=== PATIENT | female | born 1970 | race Caucasian/White ===

== ENCOUNTER 2020-04-15 14:19 | Outpatient (CLI) | payer SELFPAY ==
--- NOTE | 2020-04-18 14:05 | ONC CON_ITS ---
Dr. Carson New Patient Note Patient: Ailyn Lobato Unit #: [id number]: 1970 Dicatated By: Lucian Carson M.D.Date of Visit: Apr 15, 2020 Onc MED New Patient/Consult Referring Physician: Dr. MICHAEL Ren M.D. History of Present Illness: Ms. Ailyn Lobato, is a 49-year-old female with who was diagnosed with colorectal cancer per colonoscopy done on March 08, 2020 at [facility] in [facility], as per patient she went to emergency room with 6-week history of progressive worsening of right upper quadrant pain and nausea along with history of off and on bleeding per rectum over 6-month duration and she thought her right upper quadrant pain was due to gallbladder so patient underwent CT scan of chest abdomen pelvis on March 06, 2020 which showed asymmetric thickening of the wall of rectosigmoid colon and low to intermediate density hepatic masses in the liver a mass within the right lobe measured 5.6 cm in transverse dimension. Pancreas normal, adrenal normal and increased density within the left common femoral vein and left superficial femoral vein, venous Doppler study done on March 06, 2020 confirmed left popliteal to common femoral DVT, patient was started on Eliquis and diagnosed with metastatic colorectal cancer with liver mets,, her final pathology report showed mutations not detected for both K-marly and NRAS but positive for BRAF V600E mutation. Patient was seen by Dr. Michael Ren, medical oncologist and he recommended systemic chemotherapy with FOLFOX every 2 weeks, as per patient on April 02, 2020, she went to back to [facility] ER with confusion and mental status changes of 1 week duration and MRI scan of the brain was done with a concern for metastatic disease but it did not show any evidence of brain mets but showed multiple areas of embolic and ischemic stroke particular to the right occipital region and bilateral cerebellar region as there was no neurology coverage, patient was transferred to [facility] in [facility], CTA head was done on April 02, 2020 which showed 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 Patient was seen by Dr. Evelio Ren, she was started on systemic chemotherapy with FOLFOX and second cycle of chemotherapy was completed on April 12, 2020. Due to her convenience [place], has decided to switch her care to [place]. He denies any specific complaints today, no fever chills, no nausea or vomiting, no diarrhea or constipation, no melena or hematochezia mild left leg swelling. But no hemoptysis or hematemesis, no headaches or blurred vision or double vision, no jaundice, right upper quadrant pain is under control. Past Medical History: Ms. Lobato's medical history consists of anxiety, depression, dvt, and stroke. Past Surgical History: Ms. Lobato's surgical/procedural history consists of portacath placement. Medications: busPIRone HCl 1 Tablet (of 10 mg) Oral daily, Cetirizine HCl 1 Tablet (of 10 mg) Oral daily, Citalopram Hydrobromide 1 Tablet (of 20 mg) Oral daily, Enoxaparin Sodium 60 Units (of 300 mg/3mL) Injection b.i.d., Famotidine 1 Tablet (of 20 mg) Oral daily, HYDROcodone-Acetaminophen 1 Tablet (of 5-325 mg) Oral PRN, Montelukast Sodium 1 Tablet (of 10 mg) Oral daily, Probiotic 1 Capsule Oral daily, Promethazine HCl 1 Tablet (of 25 mg) Oral daily, Zofran 1 Tablet (of 8 mg) Oral PRN Allergies: Bactrim, coffee, fish, garlic, milk , Penicillins, angel, and salmon. Social History: Ms. Lobato is . Ms. Lobato no longer smokes. Family History: There is no documented family history. Review Of Symptoms: Constitutional - Appetite is good and weight is stable. No fever, night sweats, or hot flashes. Energy level is poor, ENMT - No sinus congestion/drainage. No mouth sores. No sore throat or difficulty swallowing, Hematologic/Lymphatic - Positive for easy bruising, bleeding. Pt reports hx of blood clots, Respiratory - No shortness of breath. No cough. No pleuritic pain or hemoptysis, Cardiovascular - No angina pain. No palpitations, Gastrointestinal - No nausea or vomiting. No heartburn or acid reflux. No diarrhea or constipation. Pt reports abnormal, occasionally bloody stools, Genitourinary (F) - No dysuria or hematuria. No urinary frequency. No urgency or incontinence, Musculoskeletal - No joint or bone pain, Neurologic - No headache or dizziness. No numbness or tingling. No other focal neurologic symptoms, Psychiatric - No anxiety or depression. No insomnia. Vital Signs: Performed on Apr 15, 2020 14:54: 0, 21.08, 1.71 sq.m, 67.00 in, 99 %, 89 /min, 18 /min, 145/79 mm(hg) (HIGH), 98.4 F, and 134.6 lbs (HIGH). Performance Status: 1 - No physically strenuous activity, but ambulatory and able to carry out light or sedentary work (e.g. office work, light house work). (ECOG) Physical Examination: ENMT - No mouth sores, no thrush, no jaundice, Respiratory - Lungs are clear to auscultation, Cardiovascular - Regular rate and rhythm of heart, Abdomen - Soft, bowel sounds present, Extremities - Trace edema left leg. Lab/Imaging: Most recent lab results are not available for this patient. Impression: Metastatic colorectal cancer per colonoscopy done on March 08, 2020 confirmed adenocarcinoma and molecular profiling showed MMR proficient tumor, negative for KRAS and NRAS mutation but positive for BRAF V[address] scan of chest abdomen pelvis done on March 06, 2020 showed numerous low to intermediate density hepatic masses, mass within the right lobe measured 5.6 cm in transverse dimension. Nonspecific decreased attenuation noted in the periphery of spleen. And asymmetric thickening of the wall of the rectosigmoid colon. A lymph node near the segment of colon appears abnormally enlarged measuring 8.4 mm There is a fusion of T12 and L1 level. Left leg DVT confirmed by venous Doppler study done on March 06, 2020, initially treated with Eliquis, then patient was admitted [facility] on April 02, 2020, for which she was transferred to [facility] in [facility] with mental status confusion due to multiple area of embolic and ischemic stroke seen in the right occipital region and bilateral cerebellar region per MRI scan done and on April 02, 2020 she underwent embolectomy of basilar artery. And was started on Lovenox 60 mg subcu twice daily and concluded Eliquis failure. Anxiety/depression Started on systemic chemotherapy with FOLFOX by Dr. Evelio Ren in [place] and completed a second cycle on April 12, 2020 Plan: Discussed with patient regarding her disease status and treatment options, so far patient has tolerated 2 cycles of FOLFOX without significant problem, now she wants to resume her treatment here in [place],, her next cycle of FOLFOX is due on so we will postpone it till Tuesday after , she return to clinic with CBC CMP and if looks reasonable for the cycle #3 with FOLFOX and plan to give her 6 cycles of chemo and then follow-up CT PET scan to assess disease response and then plan accordingly. And to minimize toxicity we will omit 5-FU bolus dose with next cycle of chemotherapy As far as left leg DVT and recent history of basilar artery thrombosis and status post embolectomy is concerned, patient is on Lovenox and was told that Eliquis did not prevent thrombosis and was concluded Eliquis failure, in that case, will consider switching her to direct thrombin inhibitor dabigatran as earlier she was on direct factor Xa inhibitor apixaban (Eliquis) when she developed basilar artery thrombosis, patient has enough Lovenox to last till her return to clinic in 2 weeks, at that time will discuss with her regarding dabigatran. Signed By: Lucian Carson M.D. <<Signature on File>>
== END 2020-04-15 14:20 | disposition home or self-care (01) ==
LOC: ONCMED 14:25
PROVIDERS: PCP Nurse Practitioner Family; Visit Provider Internal Medicine Hematology & Oncology
DX: C19 Malignant neoplasm of rectosigmoid junction (principal); F41.8 Other specified anxiety disorders; Z79.01 Long term (current) use of anticoagulants; Z86.718 Personal history of other venous thrombosis and embolism; Z86.73 Personal history of transient ischemic attack (TIA), and cerebral infarction without residual deficits
CPT/HCPCS: 99203

== ENCOUNTER 2020-05-26 05:20 | Outpatient (RCR) | payer SELFPAY ==
[2020-04-29] MEDS: dextrose 5% 250 ML 75 ML IV (12:05)
[2020-04-29] MEDS: palonosetron 0.25 mg/5 mL SDV IV (12:05)
[2020-05-01] MEDS: LORazepam 2 mg/mL INJ 1 mL 0.5 MG IVP (15:17)
[2020-05-01] MEDS: sodium chloride 0.9% 500 ML IV (15:19)
--- NOTE | 2020-05-07 09:03 | ONC FU_ITS ---
[facility] Patient Note Patient: Ailyn Lobato Unit #: [id number]: 1970 Dictated By: Aman SargentDate of Visit: Apr 29, 2020 Onc MED Follow-Up/Prog Note Chief Complaint: Metastatic colon cancer History of Present Illness: Mrs. Lobato is a 49-year-old female with who was diagnosed with colorectal cancer per colonoscopy done on March 08, 2020 at [facility] in [facility]. She reports he went to emergency room with 6-week history of progressive worsening of right upper quadrant pain and nausea along with history of off and on bleeding per rectum over 6-month duration. She states she thought her right upper quadrant pain was due to gallbladder. She underwent CT scan of chest abdomen pelvis on March 06, 2020 which showed asymmetric thickening of the wall of rectosigmoid colon and low to intermediate density hepatic masses in the liver a mass within the right lobe measured 5.6 cm in transverse dimension. Pancreas normal, adrenal normal and increased density within the left common femoral vein and left superficial femoral vein. A venous doppler done on March 06, 2020 confirmed left popliteal to common femoral DVT. She was started on Lovenox and later transitioned to Eliquis. Mrs Lobato was diagnosed with metastatic colorectal cancer with liver mets at [facility] on . 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 Mrs Murcia was seen by Dr. Dae Ren, medical oncologist. He recommended systemic chemotherapy with FOLFOX every 2 weeks. However on April 02, 2020, she went to back to [facility] ER with confusion and mental status changes of 1 week duration and MRI scan of the brain was done with a concern for metastatic disease but it did not show any evidence of brain mets but showed multiple areas of embolic and ischemic stroke particular to the right occipital region and bilateral cerebellar region. As there was no neurology coverage, she was transferred to [facility] in [facility]. 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 On April 02, 2020, she underwent embolectomy of basilar artery and patient was discharged home on April 05, 2020 with Lovenox 60 mg twice a day and also concluded Eliquis failure. Mrs [place] was seen by Dr. Evelio Ren and she was started on systemic chemotherapy with FOLFOX and second cycle of chemotherapy was completed on April 12, 2020. Due to her convenience as patient lives in [place], [place], she has decided to switch her care to [place]. Ms. Lobato is here today for follow-up. She is due for her third cycle of FOLFOX. She has received 2 previous cycles at [facility] in [facility]. She has transitioned her care to [place] to be closer to home. She did see Dr. Carson for follow-up and establishment of care on April 15, 2020. She states overall she is doing good. Her appetite is fair. Energy is good. She states she is used up going all the time and has had to slow down a little bit. She is still self administering Lovenox and tolerating this well. She denies any fever or chills. She is had no known Covid symptoms or exposure. She denies any new shortness of breath orthopnea. She denies chest pain or palpitations. She denies any lower extremity swelling. She has had bruising on the abdomen from the Lovenox as would be expected. She states she did have some neuropathy with the last FOLFOX but feels like it is resolved at present. She did have some diarrhea but states that is resolved as well. She had some mild nausea but that resolved. She did not have any emesis. Her ECOG is 1. Past Medical History: Anxiety Depression Stroke Dvt in 2019 Past Surgical History: Ear surgery Portacath placement Embolectomy of basilar artery occulsion-[facility] [place] in 2019 Biopsy of rectosigmoid colon-Dr Catalan/[facility] in 2019 Colonoscopy in 2019 Allergies: Bactrim, bananas lemon/[place] Sea food-omega, coffee, fish, garlic, milk , Penicillins, angel, and salmon. Medications: busPIRone HCl 1 Tablet (of 10 mg) Oral daily Cetirizine HCl 1 Tablet (of 10 mg) Oral daily Citalopram Hydrobromide 1 Tablet (of 20 mg) Oral daily Enoxaparin Sodium 60 Units (of 300 mg/3mL) Injection b.i.d. Famotidine 1 Tablet (of 20 mg) Oral daily HYDROcodone-Acetaminophen 1 Tablet (of 5-325 mg) Oral PRN Montelukast Sodium 1 Tablet (of 10 mg) Oral daily Probiotic 1 Capsule Oral daily Promethazine HCl 1 Tablet (of 25 mg) Oral daily Zofran 1 Tablet (of 8 mg) Oral PRN Family History: Social History: Ms. Lobato is . Ms. Lobato no longer smokes. Review Of Symptoms: Constitutional Denies fevers, chills, night sweats, excessive fatigue or weight loss. Has fatigue but recovers with rest. Allergic/Immunologic No reactions. Eyes Denies significant visual changes. No diplopia. No amaurosis. ENMT Denies changes in hearing, sore throat, mouth sores, difficulty or changes in swallowing ability, and/or sinus drainage. Hematologic/Lymphatic Denies easy bruising or bleeding. The patient denies any tender or palpable lymph nodes. Respiratory Denies dyspnea on exertion, chest pain, cough or hemoptysis. Denies orthopnea. Cardiovascular Denies anginal chest pain, palpitations or orthopnea. Gastrointestinal Denies current nausea, vomiting, diarrhea, GI bleeding, or constipation. Denies change in bowel habits and/or stool color, no heartburn or early satiety. Some nausea and diarrhea after cycle 2 but resolved at present. Genitourinary (F) No hematuria, hesitancy, incontinence, vaginal bleeding, discharge or other problems with urination. Musculoskeletal Denies joint pain, swelling or redness. No decreased range of motion. Leg cramps at night off and on. Integumentary Denies chronic rashes, inflammation, ulcerations or skin changes. Neurologic Denies headache, blurred vision, and no areas of focal weakness or numbness. Normal gait. No sensory problems. Psychiatric Denies insomnia, depression, [place] or mood swings. Vital Signs: Performed on Apr 29, 2020 16:56 Height - 67.00 in Temperature - 97.9 F (LOW) Pulse - 97 /min Respiration - 18 /min BP - 127/79 mm(hg) O2 Sat - 97 % Pain - 0,1 - No physically strenuous activity, but ambulatory and able to carry out light or sedentary work (e.g. office work, light house work). (ECOG) Physical Examination: Constitutional Alert, oriented, no acute distress. Skin pink, warm and dry. Head Normocephalic; atraumatic. Eyes Conjunctivae and sclerae are clear and without icterus. Pupils are reactive and equal. Neck Supple without masses or thyromegaly. No jugular venous distension. Hematologic/Lymphatic No petechiae or purpura. Respiratory Lungs are clear to auscultation without rhonchi or wheezing. Cardiovascular Regular rate and rhythm of heart without murmurs,clicks, gallops or rubs. Chest Right subclavian venous access device insertion site is unremarkable. Abdomen Non-tender, non-distended, no masses or ascites. Good bowel sounds noted in all quads. No guarding or rebound tenderness. No pulsatile masses. Scattered mild bruising from Lovenox injections. Back/Spine Non-tender to palpation. Extremities No visible deformities, no cyanosis, clubbing or edema. Musculoskeletal No tenderness or swelling, normal range of motion without obvious weakness. Integumentary No rashes or lesions. Neurologic No sensory or motor deficits, normal cerebellar function, normal gait. Psychiatric Alert and oriented times three. Coherent speech. Verbalizes understanding of our discussions today. Laboratory:Test performed on Apr 28, 2020 14:56 CEA 187 ng/mL Test performed on Apr 28, 2020 11:29 Glucose 86 mg/dL BUN 9 mg/dL Creatinine 0.91 mg/dL Cr Clearance (Est) 71.29 mL/min Sodium 137 mmol/L Potassium 4.6 mmol/L Chloride 99 mmol/L CO2 28 mmol/L Calcium 9.4 mg/dL Protein, Total 6.7 g/dL Albumin 4.2 g/dL Globulin 2.5 g/dL Bilirubin, Total 0.3 mg/dL Alkaline Phosphatase 208 IU/L AST (SGOT) 36 IU/L ALT (SGPT) 28 IU/L WBC 4.3 10^9/L RBC 3.73 10^12/L HGB 11.3 g/dL HCT 35.5 % MCV 95 fl MCH 30.3 pg MCHC 31.8 g/dL RDW 16.2 % Platelet Count 364 10^9/L Neutrophils (Gran) 1.8 10^9/L Lymphocytes 1.6 10^9/L Monocytes 0.6 10^9/L Eosinophils 0.3 10^9/L Basophils 0.1 10^9/L Impression: Metastatic colorectal cancer per colonoscopy done on March 08, 2020 confirmed adenocarcinoma and molecular profiling showed MMR proficient tumor, negative for KRAS and NRAS mutation but positive for BRAF V[address] scan of chest abdomen pelvis done on March 06, 2020 showed numerous low to intermediate density hepatic masses, mass within the right lobe measured 5.6 cm in transverse dimension. Nonspecific decreased attenuation noted in the periphery of spleen. And asymmetric thickening of the wall of the rectosigmoid colon. A lymph node near the segment of colon appears abnormally enlarged measuring 8.4 mm There is a fusion of T12 and L1 level. Left leg DVT confirmed by venous Doppler study done on March 06, 2020, initially treated with Eliquis, then patient was admitted [facility] on April 02, 2020, for which she was transferred to [facility] in [facility] with mental status confusion due to multiple area of embolic and ischemic stroke seen in the right occipital region and bilateral cerebellar region per MRI scan done and on April 02, 2020 she underwent embolectomy of basilar artery. And was started on Lovenox 60 mg subcu twice daily and concluded Eliquis failure. Anxiety/depression Mrs Lobato is due for cycle 3 FOLFOX today. Started on systemic chemotherapy with FOLFOX by Dr. Evelio Ren in [place] and completed a second cycle on April 12, 2020 Plan: 1. Metastatic colon cancer: A. Proceed with cycle 3 FOLFOX at normal dosing with the exception of omitting the 5FU bolus. The current plan is to give her a total of 6 cycles and obtain followup PET/CT to assess disease response and plan accordingly B. Continue current antiemetics premeds as these seem to be working well at present. C. She will need growth factor support for chemotherapy-induced neutropenia as she has been receiving Fulphia 6 mg 24 hours post chemo per her [facility]/Dr Dae Ren records. D. She may have hydration/supportive care when she comes in to have her pump removed if she feels that she needs it. 2. Labs from April 28, 2020 were reviewed in detail and discussed with Ms. Lobato and a copy was given to her. WBC 4.3, hemoglobin 11.3, platelets 364,000, ANC is 1800. Potassium 4.6 creatinine 0.9 alk phos is 208 presumably due to growth factor support other LFTs are normal. CEA 187 improved from review of her records. It was 247 on 03/07/2020 per [facility] records. 3. Follow-up plan: A. We will plan for interim counts in 1 week at [facility] in [place]. B. We will plan to see her back here in the clinic in 2 weeks with CBC CMP for consideration of cycle 4 FOLFOX. 4. I have ask Mrs. Lobato to call me with the name of the antibiotic she can take as I would like for her to have one on hand as her ANC today is 1800. She will receive Neulasta On Pro. 5. Leg cramps: I have requested a magnesium be added to the blood in the lab. Oxaliplatin use can result in hypomagnesium. 6. Mrs. Lobato was instructed to contact us in the interim should questions or problems arise. 7. Left leg DVT: Per Dr Carson's last office note... As far as left leg DVT and recent history of basilar artery thrombosis and status post embolectomy is concerned, patient is on Lovenox and was told that Eliquis did not prevent thrombosis and was concluded Eliquis failure, in that case, will consider switching her to direct thrombin inhibitor dabigatran as earlier she was on direct factor Xa inhibitor apixaban (Eliquis) when she developed basilar artery thrombosis, patient has enough Lovenox to last till her return to clinic in 2 weeks, at that time will discuss with her regarding dabigatran. 8. Total face to face time spent with Mrs Lobato was > 60 minutes in review of plan of care, side effect identification and management and answering questions. Signed By: Aman Sargent-CRIS, AOPHIL Carson MD <<Signature on File>>
[2020-05-13] MEDS: dextrose 5% 250 ML 75 ML (10:48)
[2020-05-13] MEDS: famotidine 20 mg/2 mL INJ IVP (10:48)
[2020-05-13] MEDS: palonosetron 0.25 mg/5 mL SDV IVP (11:18)
--- NOTE | 2020-05-13 17:24 | ONC FU_ITS ---
Dr. Carson follow up note Patient: Ailyn Lobato Unit #: [id number]: 1970 Dicatated By: Lucian Carson M.D.Date of Visit:May 13, 2020 Onc Med Follow-up/Prog Note History of Present Illness: Mrs. Lobato is a 49-year-old female with who was diagnosed with colorectal cancer per colonoscopy done on March 08, 2020 at [facility] in [facility]. She reports he went to emergency room with 6-week history of progressive worsening of right upper quadrant pain and nausea along with history of off and on bleeding per rectum over 6-month duration. She states she thought her right upper quadrant pain was due to gallbladder. She underwent CT scan of chest abdomen pelvis on March 06, 2020 which showed asymmetric thickening of the wall of rectosigmoid colon and low to intermediate density hepatic masses in the liver a mass within the right lobe measured 5.6 cm in transverse dimension. Pancreas normal, adrenal normal and increased density within the left common femoral vein and left superficial femoral vein. A venous doppler done on March 06, 2020 confirmed left popliteal to common femoral DVT. She was started on Lovenox and later transitioned to Eliquis. Mrs Lobato was diagnosed with metastatic colorectal cancer with liver mets at [facility] on . 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 Mrs Murcia was seen by Dr. Dae Ren, medical oncologist. He recommended systemic chemotherapy with FOLFOX every 2 weeks. However on April 02, 2020, she went to back to [facility] ER with confusion and mental status changes of 1 week duration and MRI scan of the brain was done with a concern for metastatic disease but it did not show any evidence of brain mets but showed multiple areas of embolic and ischemic stroke particular to the right occipital region and bilateral cerebellar region. As there was no neurology coverage, she was transferred to [facility] in [facility]. 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 On April 02, 2020, she underwent embolectomy of basilar artery and patient was discharged home on April 05, 2020 with Lovenox 60 mg twice a day and also concluded Eliquis failure. Mrs Moreland was seen by Dr. Evelio Ren and she was started on systemic chemotherapy with FOLFOX and second cycle of chemotherapy was completed on April 12, 2020. Due to her convenience as patient lives in [place], [place], she has decided to switch her care to [place]. Came for follow-up, denies any specific complaints except generalized weakness and fatigue and itching involving both hands, as per patient she has history of eczema involving both hands and was seen by Dr. Trujillo crusher setter in [facility] about 4 years ago and since then she has been taking antihistaminic/antiallergic and also herbs. And also complaining of knots at Lovenox injection site. But no fever chills no nausea or vomiting no diarrhea constipation no mouth sores, no peripheral numbness, tolerating FOLFOX well otherwise Medications: busPIRone HCl 1 Tablet (of 10 mg) Oral daily, Cetirizine HCl 1 Tablet (of 10 mg) Oral daily, Citalopram Hydrobromide 1 Tablet (of 20 mg) Oral daily, Enoxaparin Sodium 60 Units (of 300 mg/3mL) Injection b.i.d., Famotidine 1 Tablet (of 20 mg) Oral daily, HYDROcodone-Acetaminophen 1 Tablet (of 5-325 mg) Oral PRN, Montelukast Sodium 1 Tablet (of 10 mg) Oral daily, Probiotic 1 Capsule Oral daily, Promethazine HCl 1 Tablet (of 25 mg) Oral daily, Zofran 1 Tablet (of 8 mg) Oral PRN Allergies: Bactrim, bananas lemon/[place] Sea food-omega, coffee, fish, garlic, milk , Penicillins, angel, and salmon. Review of Systems: Constitutional - Appetite is good and weight is stable. No fever, night sweats, or hot flashes. Energy level is fair, ENMT - No sinus congestion/drainage. No mouth sores. No sore throat or difficulty swallowing, Hematologic/Lymphatic - Positive for easy bruising, bleeding. Pt reports hx of blood clots, Respiratory - No shortness of breath. No cough. No pleuritic pain or hemoptysis, Cardiovascular - No angina pain. No palpitations, Gastrointestinal - No nausea or vomiting. No heartburn or acid reflux. No diarrhea or constipation. Pt reports abnormal, occasionally bloody stools, Genitourinary (F) - No dysuria or hematuria. No urinary frequency. No urgency or incontinence, Musculoskeletal - No joint or bone pain, Neurologic - No headache or dizziness. No numbness or tingling. No other focal neurologic symptoms, Psychiatric - No anxiety or depression. No insomnia. Vital Signs: Performed on May 13, 2020 09:12 Height - 67.00 in Weight - 138.8 lbs (HIGH) BSA - 1.73 sq.m BMI - 21.74 Temperature - 99.3 F (HIGH) Pulse - 96 /min Respiration - 18 /min BP - 138/68 mm(hg) O2 Sat - 97 % Pain - 2 Performance Status: 2 - Ambulatory/capable of all self-care, unable to perform any work activities. Up and about more than 50% of waking hours. (ECOG) Physical Examination: ENMT - No mouth sores, no thrush, no jaundice, Respiratory - Lungs are clear to auscultation, Cardiovascular - Regular rate and rhythm of heart, Abdomen - Soft, bowel sounds present and small knots at the Lovenox injection site no discharge no tenderness, Extremities - No visible edema or rash, dryness involving bilateral Hands. Lab/Imaging: Test performed on May 13, 2020 09:13 Glucose 93 mg/dL BUN 9 mg/dL Creatinine 0.93 mg/dL Cr Clearance (Est) 69.75 mL/min BUN/Creatinine Ratio 10 Absolute Value Sodium 142 mmol/L Potassium 5.1 mmol/L Chloride 103 mmol/L CO2 27 mmol/L Calcium 9.4 mg/dL Protein, Total 7.0 g/dL Albumin 4.6 g/dL Globulin 2.4 g/dL A/G Ratio 1.9 Absolute Value Bilirubin, Total 0.3 mg/dL Alkaline Phosphatase 227 IU/L AST (SGOT) 53 IU/L ALT (SGPT) 48 IU/L WBC 10.0 10^9/L RBC 4.13 10^12/L HGB 12.3 g/dL HCT 38.5 % MCV 93 fl MCH 29.8 pg MCHC 31.9 g/dL RDW 16.5 % Platelet Count 217 10^9/L Neutrophils (Gran) 6.9 10^9/L Lymphocytes 1.7 10^9/L Monocytes 0.8 10^9/L Eosinophils 0.4 10^9/L Basophils 0.1 10^9/L Test performed on Apr 28, 2020 14:56 CEA 187 ng/mL Impression: Metastatic colorectal cancer per colonoscopy done on March 08, 2020 confirmed adenocarcinoma and molecular profiling showed MMR proficient tumor, negative for KRAS and NRAS mutation but positive for BRAF V[address] scan of chest abdomen pelvis done on March 06, 2020 showed numerous low to intermediate density hepatic masses, mass within the right lobe measured 5.6 cm in transverse dimension. Nonspecific decreased attenuation noted in the periphery of spleen. And asymmetric thickening of the wall of the rectosigmoid colon. A lymph node near the segment of colon appears abnormally enlarged measuring 8.4 mm There is a fusion of T12 and L1 level. Left leg DVT confirmed by venous Doppler study done on March 06, 2020, initially treated with Eliquis, then patient was admitted [facility] on April 02, 2020, for which she was transferred to [facility] in [facility] with mental status confusion due to multiple area of embolic and ischemic stroke seen in the right occipital region and bilateral cerebellar region per MRI scan done and on April 02, 2020 she underwent embolectomy of basilar artery. And was started on Lovenox 60 mg subcu twice daily and concluded Eliquis failure. Anxiety/depression Mrs Lobato is due for cycle 3 FOLFOX today. Started on systemic chemotherapy with FOLFOX by Dr. Evelio Ren in [place] and completed a second cycle on April 12, 2020 Plan: Discussed with patient regarding her labs white blood count 10 hemoglobin 12.3 hematocrit 38.5 platelets 217,000 CMP within normal limit except ALT 48 compared to 28 on April 28, 2020 and AST 53 compared to 36 on April 28, 2020 Clinically, patient is doing well with no new signs symptoms, tolerating palliative chemotherapy with modified dose FOLFOX well, but with expected side effects, will proceed with cycle #4 today and then she will return to clinic in 2 weeks with CBC CMP As far as mildly elevated transaminases concern could be due to chemotherapy or other medication, patient was advised to stop taking antihistaminic/antiallergic's at least on the day and day after chemotherapy and also avoid any supplements. We will monitor her LFTs. As far as itching involving bilateral hand is concerned, patient was advised to maintain hygiene, use and moisture and also contact Dr. Trujillo or if you prefer local crusher setter as she has history of eczema involving bilateral hands. And History of DVT/pulmonary embolism/embolism involving right vertebral artery/basilar artery status post thrombectomy and now being treated with Lovenox, will consider continue with Lovenox for 6 months since embolectomy and then check her factor Xa level and then consider Xarelto or Pradaxa. We will consider follow-up CT PET scan after 6 cycles of FOLFOX. Signed By: Lucian Carson M.D. <<Signature on File>>
[2020-05-15] MEDS: promethazine 25 mg Tablet PO (15:20)
== END 2020-05-29 23:59 | disposition home or self-care (01) ==
LOC: ONCMED 05:20
PROVIDERS: PCP Nurse Practitioner Family; Visit Provider Internal Medicine Hematology & Oncology
DX: Z51.11 Encounter for antineoplastic chemotherapy (principal); C19 Malignant neoplasm of rectosigmoid junction; C78.7 Secondary malignant neoplasm of liver and intrahepatic bile duct; D70.1 Agranulocytosis secondary to cancer chemotherapy; T45.1X5A Adverse effect of antineoplastic and immunosuppressive drugs, initial encounter; R74.01 Elevation of levels of liver transaminase levels; R25.2 Cramp and spasm; L29.9 Pruritus, unspecified; F41.8 Other specified anxiety disorders; Z51.81 Encounter for therapeutic drug level monitoring; Z79.899 Other long term (current) drug therapy; Z86.718 Personal history of other venous thrombosis and embolism; Z79.01 Long term (current) use of anticoagulants
CPT/HCPCS: 96361; 96367; 96368; 96372; 96374; 96375; 96413; 96415; 96416; 96417; 96523; 99214; 99215; J0640; J1100; J1453; J2060; J2469; J2505; J3490; J7040; J9190; J9263; Q0169

== ENCOUNTER 2020-06-19 05:31 | Outpatient (RCR) | payer SELFPAY ==
[2020-06-02 09:29] LABS: Basophils # 0.1 10^3/uL (0.0-0.1); Basophils % 1.2 %; Eosinophils # 0.3 10^3/uL (0.0-0.8); Eosinophils % 3.5 %; Hematocrit 29.7 % (37.0-47.0); Hemoglobin 9.3 g/dL (11.5-15.3); Lymphocytes # 1.8 10^3/uL (0.8-4.8); Lymphocytes % 24.1 %; Mean Corpuscular HGB Conc 31.3 g/dL (30.0-36.0); Mean Platelet Volume 10.3 fL (7.4-10.4); Monocytes # 0.9 10^3/uL (0.2-0.9); Monocytes % 11.5 %; Neutrophils # 4.44 10^3/uL (1.8-7.7); Neutrophils % 59.2 %; Nucleated Red Blood Cells % 0 %; Platelet Count 305 10^3/cmm (130-400); Red Cell Distribution Width 17.2 % (12.1-15.1); White Blood Count 7.5 10^3/uL (4.0-10.0)
[2020-06-02 10:10] LABS: Alanine Aminotransferase 26 U/L (0-33); Albumin Level 3.9 g/dL (3.5-5.2); Alkaline Phosphatase 155 IU/L (35-105); Anion Gap 13.8 (5-19); Aspartate Amino Transferase 24 U/L (0-32); Blood Urea Nitrogen 9 mg/dL (6-20); Calcium 8.9 mg/dL (8.5-10.5); Carbon Dioxide 26 mmol/L (22-29); Chloride 102 mmol/L (98-107); Globulin 2.5 g/dL (1.3-4.6); Glomerular Filtration Rate 75.9 mL/min (90-130); Glucose 93 mg/dL (65-115); Osmolality Calculated 284 mOsm/kg (285-295); Potassium 3.8 mmol/L (3.5-5.1); Sodium 138 mmol/L (136-145); Total Bilirubin 0.2 mg/dL (0.15-1.2); Total Protein 6.4 g/dL (6.6-8.7)
[2020-06-02] MEDS: palonosetron 0.25 mg/5 mL SDV IV (12:07)
[2020-06-02] MEDS: dextrose 5% 250 ML 75 ML (12:07)
[2020-06-02] MEDS: famotidine 20 mg/2 mL INJ IVP (12:28)
[2020-06-02 13:05] LABS: Carcinoembryonic Antigen 65.5 ng/mL (0.0-4.7)
[2020-06-02 13:32] LABS: Ferritin 66 ng/mL (15-150); Iron 23 ug/dL (37-145); Percent Saturation 6.5 % (20-50); Total Iron Binding Capacity 352 mcg/dl; Unsaturated Iron Binding 329 ug/dL (112-347)
--- NOTE | 2020-06-03 10:26 | ONC FU_ITS ---
Dr. Carson follow up note Patient: Ailyn Lobato Unit #: [id number]: 1970 Dicatated By: Lucian Carson M.D.Date of Visit:Jun 02, 2020 Onc Med Follow-up/Prog Note History of Present Illness: Mrs. Lobato is a 49-year-old female with who was diagnosed with colorectal cancer per colonoscopy done on March 08, 2020 at [facility] in [facility]. She reports he went to emergency room with 6-week history of progressive worsening of right upper quadrant pain and nausea along with history of off and on bleeding per rectum over 6-month duration. She states she thought her right upper quadrant pain was due to gallbladder. She underwent CT scan of chest abdomen pelvis on March 06, 2020 which showed asymmetric thickening of the wall of rectosigmoid colon and low to intermediate density hepatic masses in the liver a mass within the right lobe measured 5.6 cm in transverse dimension. Pancreas normal, adrenal normal and increased density within the left common femoral vein and left superficial femoral vein. A venous doppler done on March 06, 2020 confirmed left popliteal to common femoral DVT. She was started on Lovenox and later transitioned to Eliquis. Mrs Lobato was diagnosed with metastatic colorectal cancer with liver mets at [facility] on . 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 Mrs Murcia was seen by Dr. Dae Ren, medical oncologist. He recommended systemic chemotherapy with FOLFOX every 2 weeks. However on April 02, 2020, she went to back to [facility] ER with confusion and mental status changes of 1 week duration and MRI scan of the brain was done with a concern for metastatic disease but it did not show any evidence of brain mets but showed multiple areas of embolic and ischemic stroke particular to the right occipital region and bilateral cerebellar region. As there was no neurology coverage, she was transferred to [facility] in [facility]. 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 On April 02, 2020, she underwent embolectomy of basilar artery and patient was discharged home on April 05, 2020 with Lovenox 60 mg twice a day and also concluded Eliquis failure. Mrs Moreland was seen by Dr. Evelio Ren and she was started on systemic chemotherapy with FOLFOX and second cycle of chemotherapy was completed on April 12, 2020. Due to her convenience as patient lives in [place], [place], she has decided to switch her care to [place]. Came for follow-up, complaining of bleeding per rectum off and on for the last 2 or 3 weeks, denies any abdominal pain, denies any nausea or vomiting but diarrhea which is under control with Imodium and also complaining of mouth sores but no ulcer.,Tolerating Lovenox well otherwise No fever or chillsAnd tolerating systemic therapy chemotherapy with modified dose FOLFOX well Medications: busPIRone HCl 1 Tablet (of 10 mg) Oral daily, Citalopram Hydrobromide 1 Tablet (of 20 mg) Oral daily, Enoxaparin Sodium 60 Units (of 300 mg/3mL) Injection b.i.d., Montelukast Sodium 1 Tablet (of 10 mg) Oral daily, Probiotic 1 Capsule Oral daily, Promethazine HCl 1 Tablet (of 25 mg) Oral daily, Zofran 1 Tablet (of 8 mg) Oral PRN Allergies: Bactrim, bananas lemon/[place] Sea food-omega, coffee, fish, garlic, milk , Penicillins, angel, and salmon. Review of Systems: Constitutional - Appetite is good and weight is stable. No fever, night sweats, or hot flashes. Energy level is fair, ENMT - No sinus congestion/drainage. No mouth sores. No sore throat or difficulty swallowing, Hematologic/Lymphatic - Positive for easy bruising, bleeding. Pt reports hx of blood clots, Respiratory - No shortness of breath. No cough. No pleuritic pain or hemoptysis, Cardiovascular - No angina pain. No palpitations, Gastrointestinal - No nausea or vomiting. No heartburn or acid reflux. No diarrhea or constipation. Pt continues to report bloody stools, Genitourinary (F) - No dysuria or hematuria. No urinary frequency. No urgency or incontinence, Musculoskeletal - No joint or bone pain, Neurologic - No headache or dizziness. No numbness or tingling. No other focal neurologic symptoms, Psychiatric - No anxiety or depression. No insomnia. Vital Signs: Performed on Jun 02, 2020 10:55 Height - 67.00 in Weight - 135.6 lbs (LOW) BSA - 1.71 sq.m BMI - 21.24 Temperature - 97.8 F (LOW) Pulse - 103 /min (HIGH) Respiration - 18 /min BP - 140/70 mm(hg) O2 Sat - 99 % Pain - 0 Performance Status: 1 - No physically strenuous activity, but ambulatory and able to carry out light or sedentary work (e.g. office work, light house work). (ECOG) Physical Examination: ENMT - No mouth sores, no thrush, no Jaundice, Respiratory - Lungs are clear to auscultation, Cardiovascular - Regular rate and rhythm of heart, Abdomen - Soft, bowel sounds present, Extremities - No visible edema. Lab/Imaging: Test performed on May 13, 2020 09:13 Glucose 93 mg/dL BUN 9 mg/dL Creatinine 0.93 mg/dL Cr Clearance (Est) 69.75 mL/min BUN/Creatinine Ratio 10 Absolute Value Sodium 142 mmol/L Potassium 5.1 mmol/L Chloride 103 mmol/L CO2 27 mmol/L Calcium 9.4 mg/dL Protein, Total 7.0 g/dL Albumin 4.6 g/dL Globulin 2.4 g/dL A/G Ratio 1.9 Absolute Value Bilirubin, Total 0.3 mg/dL Alkaline Phosphatase 227 IU/L AST (SGOT) 53 IU/L ALT (SGPT) 48 IU/L WBC 10.0 10^9/L RBC 4.13 10^12/L HGB 12.3 g/dL HCT 38.5 % MCV 93 fl MCH 29.8 pg MCHC 31.9 g/dL RDW 16.5 % Platelet Count 217 10^9/L Neutrophils (Gran) 6.9 10^9/L Lymphocytes 1.7 10^9/L Monocytes 0.8 10^9/L Eosinophils 0.4 10^9/L Basophils 0.1 10^9/L Test performed on Apr 28, 2020 14:56 CEA 187 ng/mL Impression: Metastatic colorectal cancer per colonoscopy done on March 08, 2020 confirmed adenocarcinoma and molecular profiling showed MMR proficient tumor, negative for KRAS and NRAS mutation but positive for BRAF V[address] scan of chest abdomen pelvis done on March 06, 2020 showed numerous low to intermediate density hepatic masses, mass within the right lobe measured 5.6 cm in transverse dimension. Nonspecific decreased attenuation noted in the periphery of spleen. And asymmetric thickening of the wall of the rectosigmoid colon. A lymph node near the segment of colon appears abnormally enlarged measuring 8.4 mm There is a fusion of T12 and L1 level. Left leg DVT confirmed by venous Doppler study done on March 06, 2020, initially treated with Eliquis, then patient was admitted [facility] on April 02, 2020, for which she was transferred to [facility] in [facility] with mental status confusion due to multiple area of embolic and ischemic stroke seen in the right occipital region and bilateral cerebellar region per MRI scan done and on April 02, 2020 she underwent embolectomy of basilar artery. And was started on Lovenox 60 mg subcu twice daily and concluded Eliquis failure. Anxiety/depression Started on systemic chemotherapy with FOLFOX by Dr. Evelio Ren in [place] and completed a second cycle on April 12, 2020 Plan: Discussed with patient regarding her labs white blood count 7.5 hemoglobin 9.3 hematocrit 29.7 platelets 307,000 MCV 99 CMP within normal limits Clinically, patient is doing reasonably well with no new signs symptom suggestive of disease progression tolerating systemic chemotherapy with modified dose FOLFOX but with expected side effects, now with persistent off and on diarrhea and occasionally mouth sores. Also developed off and on rectal bleeding which could be due to hemorrhoids or diverticular or GI pathology, further exacerbated by Lovenox We will refer her to GI for colonoscopy and in the meantime we will monitor her hemoglobin and consider blood transfusion if less than 8 g and also check iron studies if low, consider iron supplements. Patient was advised in case she started feeling dizzy lightheadedness or experience excessive bleeding she need to call us otherwise she will return to clinic in 2 weeks with CBC CMP Also discussed about holding Lovenox because of GI bleeding but patient is concerned about stroke and related complication as previously she developed clots in her basilar artery with occlusion of left superior cerebellar artery requiring embolectomy of basilar artery, on the other hand there is a risk of serious bleeding, patient did express understanding, so we will monitor her closely. If there is another episode of bleeding we may consider inpatient care. In the meantime we will proceed with her palliative chemotherapy with FOLFOX but reduce 5-FU dose by 10% to minimize side effect like diarrhea and mouth sores. She return to clinic in 2 weeks with CBC CMP unless there is a further episode of GI bleeding in that case we will consider inpatient care with urgent colonoscopy evaluation. Signed By: Lucian Carson M.D. <<Signature on File>>
[2020-06-17 08:46] LABS: Basophils # 0.1 10^3/uL (0.0-0.1); Basophils % 1.1 %; Eosinophils # 0.4 10^3/uL (0.0-0.8); Hematocrit 31.1 % (37.0-47.0); Hemoglobin 9.7 g/dL (11.5-15.3); Lymphocytes # 1.9 10^3/uL (0.8-4.8); Lymphocytes % 22.8 %; Mean Corpuscular HGB Conc 31.2 g/dL (30.0-36.0); Mean Corpuscular Hemoglobin 29.7 pg (28.0-34.0); Mean Corpuscular Volume 95.1 fL (81-99); Mean Platelet Volume 10.4 fL (7.4-10.4); Monocytes # 0.7 10^3/uL (0.2-0.9); Monocytes % 8.7 %; Neutrophils # 5.02 10^3/uL (1.8-7.7); Neutrophils % 60.7 %; Nucleated Red Blood Cells % 0 %; Platelet Count 262 10^3/cmm (130-400); Red Blood Count 3.27 10^6/uL (4.1-5.3); Red Cell Distribution Width 15.7 % (12.1-15.1); White Blood Count 8.3 10^3/uL (4.0-10.0)
[2020-06-17 09:24] LABS: Alanine Aminotransferase 33 U/L (0-33); Alkaline Phosphatase 199 IU/L (35-105); Anion Gap 14.5 (5-19); Aspartate Amino Transferase 28 U/L (0-32); Blood Urea Nitrogen 10 mg/dL (6-20); Calcium 8.9 mg/dL (8.5-10.5); Carbon Dioxide 24 mmol/L (22-29); Chloride 102 mmol/L (98-107); Globulin 2.6 g/dL (1.3-4.6); Glomerular Filtration Rate 75.9 mL/min (90-130); Glucose 210 mg/dL (65-115); Osmolality Calculated 289 mOsm/kg (285-295); Potassium 3.5 mmol/L (3.5-5.1); Sodium 137 mmol/L (136-145); Total Bilirubin 0.2 mg/dL (0.15-1.2); Total Protein 6.6 g/dL (6.6-8.7)
[2020-06-17] MEDS: palonosetron 0.25 mg/5 mL SDV IVP (11:05)
[2020-06-17] MEDS: dextrose 5% 250 ML 75 ML IV (11:05)
[2020-06-17] MEDS: famotidine 20 mg/2 mL INJ IVP (11:07)
--- NOTE | 2020-06-18 08:56 | ONC FU_ITS ---
[facility] Patient Note Patient: Ailyn Lobato Unit #: [id number]: 1970 Dictated By: Aman SargentDate of Visit: Jun 17, 2020 Onc MED Follow-Up/Prog Note Chief Complaint: Metastatic colon cancer History of Present Illness: Mrs. Lobato is a 49-year-old female with who was diagnosed with colorectal cancer per colonoscopy done on March 08, 2020 at [facility] in [facility]. She reports he went to emergency room with 6-week history of progressive worsening of right upper quadrant pain and nausea along with history of off and on bleeding per rectum over 6-month duration. She states she thought her right upper quadrant pain was due to gallbladder. She underwent CT scan of chest abdomen pelvis on March 06, 2020 which showed asymmetric thickening of the wall of rectosigmoid colon and low to intermediate density hepatic masses in the liver a mass within the right lobe measured 5.6 cm in transverse dimension. Pancreas normal, adrenal normal and increased density within the left common femoral vein and left superficial femoral vein. A venous doppler done on March 06, 2020 confirmed left popliteal to common femoral DVT. She was started on Lovenox and later transitioned to Eliquis. Mrs Lobato was diagnosed with metastatic colorectal cancer with liver mets at [facility] on . 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 Mrs Murcia was seen by Dr. Dae Ren, medical oncologist. He recommended systemic chemotherapy with FOLFOX every 2 weeks. However on April 02, 2020, she went to back to [facility] ER with confusion and mental status changes of 1 week duration and MRI scan of the brain was done with a concern for metastatic disease but it did not show any evidence of brain mets but showed multiple areas of embolic and ischemic stroke particular to the right occipital region and bilateral cerebellar region. As there was no neurology coverage, she was transferred to [facility] in [facility]. 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 On April 02, 2020, she underwent embolectomy of basilar artery and patient was discharged home on April 05, 2020 with Lovenox 60 mg twice a day and also concluded Eliquis failure. Mrs Moreland was seen by Dr. Evelio Ren and she was started on systemic chemotherapy with FOLFOX and second cycle of chemotherapy was completed on April 12, 2020. Due to her convenience as patient lives in [place], [place], she has decided to switch her care to [place]. She is completed 5 cycles of FOLFOX. She is required growth factor support for chemotherapy-induced neutropenia. She continues with Lovenox. Ms. Lobato is here today for follow-up. She is due for cycle 6 FOLFOX. She continues with Neulasta support as well. Overall she is tolerating it well. She had dose reduction last cycle due to mouth sores and worsening peripheral neuropathy. She states overall that worked well. She states the neuropathy is still there but nothing like it has been. She states she had no mouth sores. She states she is eating good. Her energy is fair she does tire easily but recovers well with rest. She denies any new shortness of breath orthopnea. She denies any chest pain or palpitations. She states she has some chronic leg pain in her left upper leg but is no worse than her normal. She states her bowels are the same. She said no urinary complaints. She has persistent nausea but states is related to what she eats. She tries to watch her diet a little carefully and that nausea is controlled. Is also controlled she takes her antiemetics at home. Her ECOG is 1. She is inquiring as to whether or not she could drive in relationship to the chemotherapy. I did quiz her to see if the chemotherapy makes her dizzy, lightheaded, nauseated, sleepy or other symptoms that would alter her mental status while she is driving. She denies any of these problems. I told her in regards to the chemotherapy there is really no contraindication to driving however with her history of the history of embolic and ischemic stroke, that would be my concern more so for her driving. She states she is currently not driving. Past Medical History: Anxiety Depression Stroke Dvt in 2019 Past Surgical History: Ear surgery Portacath [facility] of [facility]osigmoid colon-Dr Catalan/[facility] in 2019 Colonoscopy in 2019 Allergies: Bactrim, bananas lemon/[place] Sea food-omega, coffee, fish, garlic, milk , Penicillins, angel, and salmon. Medications: Benadryl Allergy 1 Tablet (of 25 mg) Oral daily PRN busPIRone HCl 1 Tablet (of 10 mg) Oral daily Citalopram Hydrobromide 1 Tablet (of 20 mg) Oral daily Enoxaparin Sodium 60 Units (of 300 mg/3mL) Injection b.i.d. Montelukast Sodium 1 Tablet (of 10 mg) Oral daily PRN Probiotic 1 Capsule Oral daily Promethazine HCl 1 Tablet (of 25 mg) Oral daily PRN Zofran 1 Tablet (of 8 mg) Oral PRN Family History: Social History: Ms. Lobato is . Ms. Lobato no longer smokes. She has no history of drinking. Review Of Symptoms: Constitutional Denies fevers, chills, night sweats, excessive fatigue or weight loss. Has fatigue but recovers with rest. Allergic/Immunologic No reactions. Eyes Denies significant visual changes. No diplopia. No amaurosis. ENMT Denies changes in hearing, sore throat, mouth sores, difficulty or changes in swallowing ability, and/or sinus drainage. She states her mouth is much better and she had no problems with the dose reduction last treatment. Hematologic/Lymphatic Denies easy bruising or bleeding. The patient denies any tender or palpable lymph nodes. Respiratory Denies dyspnea on exertion, chest pain, cough or hemoptysis. Denies orthopnea. Cardiovascular Denies anginal chest pain, palpitations or orthopnea. Gastrointestinal Denies current nausea, vomiting, diarrhea, GI bleeding, or constipation. Denies change in bowel habits and/or stool color, no heartburn or early satiety. Some nausea and diarrhea after treatment and after breakfast this am but no vomiting. Genitourinary (F) No hematuria, hesitancy, incontinence, vaginal bleeding, discharge or other problems with urination. Musculoskeletal Denies joint pain, swelling or redness. No decreased range of motion. Integumentary Denies chronic rashes, inflammation, ulcerations or skin changes. Neurologic Denies headache, blurred vision, and no areas of focal weakness or numbness. Normal gait. No sensory problems. Psychiatric Denies insomnia, depression, neville or mood swings. Vital Signs: Performed on Jun 17, 2020 10:10 Height - 67.00 in Weight - 138.2 lbs (HIGH) BSA - 1.73 sq.m BMI - 21.65 Temperature - 97.8 F (LOW) Pulse - 124 /min (HIGH) Respiration - 18 /min BP - 139/71 mm(hg) O2 Sat - 96 % Pain - 0,1 - No physically strenuous activity, but ambulatory and able to carry out light or sedentary work (e.g. office work, light house work). (ECOG) Physical Examination: Constitutional Alert, oriented, no acute distress. Skin pink, warm and dry. Head Normocephalic; atraumatic. Eyes Conjunctivae and sclerae are clear and without icterus. Pupils are reactive and equal. Neck Supple without masses or thyromegaly. No jugular venous distension. Hematologic/Lymphatic No petechiae or purpura. Respiratory Lungs are clear to auscultation without rhonchi or wheezing. Cardiovascular Regular rate and rhythm of heart without murmurs,clicks, gallops or rubs. Chest Right subclavian venous access device insertion site is unremarkable. Abdomen Non-tender, non-distended, no masses or ascites. Good bowel sounds noted in all quads. No guarding or rebound tenderness. No pulsatile masses. Scattered mild bruising from Lovenox injections. Back/Spine Non-tender to palpation. Extremities No visible deformities, no cyanosis, clubbing or edema. Musculoskeletal No tenderness or swelling, normal range of motion without obvious weakness. Integumentary No rashes or lesions. Neurologic No sensory or motor deficits, normal cerebellar function, normal gait. Psychiatric Alert and oriented times three. Coherent speech. Verbalizes understanding of our discussions today. Laboratory:Test performed on Jun 17, 2020 08:35 Sodium 137 mmol/L Potassium 3.5 mmol/L Chloride 102 mmol/L CO2 24 mmol/L Anion Gap 14.5 BUN 10 mg/dL Creatinine 0.8 mg/dL Cr Clearance (Est) 81.0900 mL/min eGFR 75.9 mL/min Glucose 210 mg/dL Osmolality - Calculated 289 mOsm/kg Calcium 8.9 mg/dL Protein, Total 6.6 g/dL Albumin 4.0 g/dL Globulin 2.6 g/dL Bilirubin, Total 0.2 mg/dL ALT (SGPT) 33 U/L AST (SGOT) 28 U/L Alkaline Phosphatase 199 IU/L WBC 8.3 10 3/uL RBC 3.27 10 6/uL HGB 9.7 g/dL HCT 31.1 % MCV 95.1 fL MCH 29.7 pg MCHC 31.2 g/dL RDW 15.7 % Platelet Count 262 10 3/cmm MPV 10.4 fL Neutrophils 5.02 10 3/uL Lymphocytes 1.9 10 3/uL Monocytes 0.7 10 3/uL Eosinophils 0.4 10 3/uL Basophils 0.1 10 3/uL Neutrophil % 60.7 % Lymphocyte % 22.8 % Monocyte % 8.7 % Eosinophil % 5.0 % Basophils % 1.1 % NRBC % 0 % Test performed on Jun 02, 2020 09:21 Ferritin 66 ng/mL Iron 23 mcg/dL Iron Binding Capacity (TIBC) 352 mcg/dl % Iron Saturation 6.5 % UIBC 329 mcg/dL CEA 65.5 ng/mL Test performed on May 13, 2020 09:13 BUN/Creatinine Ratio 10 Absolute Value A/G Ratio 1.9 Absolute Value Impression: Metastatic colorectal cancer per colonoscopy done on March 08, 2020 confirmed adenocarcinoma and molecular profiling showed MMR proficient tumor, negative for KRAS and NRAS mutation but positive for BRAF V[address] scan of chest abdomen pelvis done on March 06, 2020 showed numerous low to intermediate density hepatic masses, mass within the right lobe measured 5.6 cm in transverse dimension. Nonspecific decreased attenuation noted in the periphery of spleen. And asymmetric thickening of the wall of the rectosigmoid colon. A lymph node near the segment of colon appears abnormally enlarged measuring 8.4 mm There is a fusion of T12 and L1 level. Left leg DVT confirmed by venous Doppler study done on March 06, 2020, initially treated with Eliquis, then patient was admitted [facility] on April 02, 2020, for which she was transferred to [facility] in [facility] with mental status confusion due to multiple area of embolic and ischemic stroke seen in the right occipital region and bilateral cerebellar region per MRI scan done and on April 02, 2020 she underwent embolectomy of basilar artery. And was started on Lovenox 60 mg subcu twice daily and concluded Eliquis failure. Anxiety/depression Started on systemic chemotherapy with FOLFOX by Dr. Evelio Ren in [place] and completed a second cycle on April 12, 2020. She has now completed a total of 5 cycles of the FOLFOX and she is tolerating it well. She did require dose reduction with cycle 5 due to worsening peripheral neuropathy, increased diarrhea and mouth sores. Plan: PROBLEMS ADDRESSED TODAY 1. Metastatic colorectal cancer: A. Proceed with cycle 6 FOLFOX (at same dosing as cycle 5) and continue Neulasta support for chemotherapy-induced neutropenia. B. Supportive care as needed. C. Today's labs were reviewed in detail and discussed with Ms. Lobato and a copy was given to her. WBC 8.3, hemoglobin 9.7, platelets 262,000 ANC is 5000. Potassium 3.5 nonfasting glucose is 210 creatinine 0.8 LFTs are normal alk phos is 199 presumably due to Neulasta. Her last CEA on June 02, 2020 was 65.5 which is down from 187 on April 28, 2020. D. She is scheduled for colonoscopy next week. She is to have her Covid screening test done this with her pump removal. She states she still has some bleeding but it is definitely no worse than what it has been may be some better. 2. Anemia: A. She was found to be iron deficient with her labs on June 02, 2019 her iron sat was 6.5% her iron level was 23 and her ferritin was 66 TIBC was 352. I have asked her to start with oral iron 1 tablet daily and increase to a total of 3-day as tolerated. She has been advised to watch for GI upset and also constipation. B. If she is intolerant of the oral iron we can offer her parenteral iron replacement with Injectafer. 3. Thrombosis: A. DVT of the left popliteal to common femoral on March 06, 2020. She was started on Lovenox and transition to Eliquis B. 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 She resumed the Lovenox and was considered in Eliquis failure due to the recurrent clot. C. She continues with Lovenox 60 mg subcutaneous twice daily. 4. Follow-up plan: A. We will plan to see her back in 2 weeks with CBC, CMP and CEA. She will be due for cycle 7 FOLFOX at that time. B. Mrs. Lobato was instructed to contact us in interim should questions or problems arise. Signed By: Aman Sargent-, [facility] Lucian Carson MD <<Signature on File>>
--- NOTE | 2020-06-18 16:04 | ONC FU_ITS ---
[facility] Patient Note Patient: Ailyn Lobato Unit #: [id number]: [id number] Dictated By: Aman SargentDate of Visit: Jun 18, 2020 Onc MED Follow-Up/Prog Note ADDENDUM Mrs Lobato will be scheduled for followup PET/CT restaging prior to her followup in 2 weeks as she has now completed 6 cycles of FOLFOX. This followup imaging is necessary for planning of continuation of care. This PET/CT schedule will be pending insurance approval. Signed By: Aman Sargent-CRIS AOCNP <<Signature on File>>
== END 2020-06-29 23:59 | disposition home or self-care (01) ==
LOC: ONCMED 05:31
PROVIDERS: Nurse Practitioner; PCP Nurse Practitioner Family; Visit Provider Internal Medicine Hematology & Oncology
DX: Z51.11 Encounter for antineoplastic chemotherapy (principal); C19 Malignant neoplasm of rectosigmoid junction; C78.7 Secondary malignant neoplasm of liver and intrahepatic bile duct; I82.402 Acute embolism and thrombosis of unspecified deep veins of left lower extremity; F41.9 Anxiety disorder, unspecified; F32.9 Major depressive disorder, single episode, unspecified; Z79.01 Long term (current) use of anticoagulants; G62.0 Drug-induced polyneuropathy; T45.1X5A Adverse effect of antineoplastic and immunosuppressive drugs, initial encounter; R19.7 Diarrhea, unspecified; K13.79 Other lesions of oral mucosa; Z79.899 Other long term (current) drug therapy
CPT/HCPCS: 80053; 82378; 82728; 83540; 83550; 85025; 87635; 96367; 96368; 96372; 96375; 96413; 96415; 96416; 96523; 99205; 99215; J0640; J1100; J1453; J2469; J2505; J3490; J9190; J9263

== ENCOUNTER 2020-06-24 09:47 | Day surgery (SDC) | payer SELFPAY ==
[2020-06-20 13:56] VITALS: BMI 21.6
[2020-06-24 10:01] VITALS: BP 137/82; PULSE 109; RESP 18; TEMP 36.6; O2SAT 99
[2020-06-24 10:08] LABS: OR HCG Qualitative Urine Negative (Negative)
[2020-06-24] MEDS: sodium chloride 0.9% 1,000 ML 30 ML IV (10:12)
--- NOTE | 2020-06-24 10:36 | ANES.PREANE2 ---
Pre-Anesthetic Assessment Pre-Anesthetic Assessment: Height/Weight: Height 1.7 m Weight 62.596 kg Temp Pulse Resp BP Pulse Ox 97.8 F 109 H 18 137/82 99 06/24/20 10:01 06/24/20 10:01 06/24/20 10:01 06/24/20 10:01 06/24/20 10:01 Preop Diagnosis: diagnostic Proposed Procedure: Operation Date: 06/24/20 11:00 Proposed Procedures p Colonoscopy 65064 Z85.038(Not Applicable) - Prasad Andre MD Was Beta Larry taken within 24 hours: N/A Last intake: Intake Last Liquid Date 06/23/20 Last Liquid Time 23:59 Last Solid Date 06/22/20 Last Solid Time 18:00 Social: Social History: No alcohol and No tobacco Comment: H/o smoking quit in March Exam: Pre-Anes Outpt Exam: alert, oriented x 3, clear to auscultation bilaterally and regular rate & rhythm Airway: Submandibular: WNL Cervical ROM: WNL MP: 2 Dentition: Full CV/HEM: Comments: h/o DVT/PE GI: GI: GERD Neuropsych: Neuropsych: Anxiety 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 Anesthetic Plan: ASA status: 3 Anesthesia: MAC Risk of > 500 ml blood loss (7ml/kg in children): No Meds/Allergies Current Medications: Current Medications Generic Name Dose Route Start Last Admin Trade Name Freq PRN Reason Stop Dose Admin Sodium Chloride 1,000 mls @ 30 ml s/hr 06/24/20 10:00 06/24/20 10:12 Sodium Chloride 0.9% IV 06/25/20 09:59 30 mls/hr .Q24H CONCEPCION Administration PFSH Anesthesia PFSH: Medical History (Updated 06/11/20 @ 08:19 by Prasad Andre MD) Basilar artery thrombosis Chronic anticoagulation Colon cancer metastasized to liver DVT (deep venous thrombosis) Surgical History (Updated 06/10/20 @ 14:56 by Prasad Andre MD) History of ear surgery Status post colonoscopy Family History (Updated 06/10/20 @ 14:28 by Mena Conway) Mother Cancer breast and lung Social History (Updated 06/10/20 @ 14:28 by Mena Conway) Smoking and tobacco status: former smoker Second hand smoke exposure: No Smoking risk assessment/counseling performed?: No Alcohol intake: never Desire information about alcohol rehabilitation?: No Counseling given: No Desire information about substance/drug rehabilitation?: No Counseling given: No Adopted: No Caregiver/support person: No Lives independently: Yes Household members: spouse and children Marital status: Number of children: 1 Data Anesthesia Other Labs: Laboratory Results - last 48 hr 06/24/20 09:58 Urine HCG, Qual Negative Cardiac Studies: No Data to Display
--- NOTE | 2020-06-24 11:58 | W.PM.OPSUD ---
Surgery/Procedure H&P Update DATE OF PROCEDURE: June 24, 2020 DATE H&P PERFORMED: 06/10/20 H&P UPDATE INFORMATION: I have reviewed H&P completed within last 30 days, I have examined patient prior to procedure and No changes to prior documentation PREOP DIAGNOSIS: diagnostic PLANNED PROCEDURE: Operation Date: 06/24/20 11:00 Proposed Procedures p Colonoscopy [id number] Z85.038(Not Applicable) - Prasad Andre MD
[2020-06-24 12:21] VITALS: BP 93/48; PULSE 78; RESP 18; TEMP 36.4; O2SAT 99
[2020-06-24 12:36] VITALS: BP 126/80; PULSE 75; RESP 18; TEMP 36.4; O2SAT 100
--- NOTE | 2020-06-24 13:32 | ANE.PACU2 ---
Inpatient post-anesthesia follow up: Airway intact: Yes Vital signs: Temperature 97.5 F Pulse Rate 75 Respiratory Rate 18 Blood Pressure 126/80 Pulse Oximetry 100 Oxygen Delivery Me thod Room Air Oxygen Flow Rate Fraction of Inspir ed Oxygen Hydration adequate: Yes Nausea and vomiting: No Pain level: 1 Mental status: Baseline
== END 2020-06-24 13:10 | disposition home or self-care (01) ==
PROVIDERS: Anesthesiology; PCP Nurse Practitioner Family; Visit Provider Surgery
PROC: 0DJD8ZZ Inspection of Lower Intestinal Tract, Via Natural or Artificial Opening Endoscopic (ICD-10-PCS; CPT 45378; principal; 2020-06-24 11:00)
DX: K92.1 Melena (principal); C18.9 Malignant neoplasm of colon, unspecified; C78.7 Secondary malignant neoplasm of liver and intrahepatic bile duct; Z86.718 Personal history of other venous thrombosis and embolism; Z87.891 Personal history of nicotine dependence; Z79.01 Long term (current) use of anticoagulants; K21.9 Gastro-esophageal reflux disease without esophagitis
CPT/HCPCS: 12345; 45378; 84703; J2704; J7030; T1015-U1

== ENCOUNTER 2020-07-25 05:46 | Outpatient (RCR) | payer SELFPAY ==
[2020-07-01 08:37] LABS: Basophils % 0.5 %; Eosinophils # 0.5 10^3/uL (0.0-0.8); Eosinophils % 6.1 %; Hematocrit 29.8 % (37.0-47.0); Hemoglobin 9.2 g/dL (11.5-15.3); Lymphocytes # 1.9 10^3/uL (0.8-4.8); Lymphocytes % 23.1 %; Mean Corpuscular HGB Conc 30.9 g/dL (30.0-36.0); Mean Corpuscular Hemoglobin 29.1 pg (28.0-34.0); Mean Corpuscular Volume 94.3 fL (81-99); Mean Platelet Volume 10.8 fL (7.4-10.4); Monocytes # 0.8 10^3/uL (0.2-0.9); Monocytes % 8.9 %; Neutrophils # 5.03 10^3/uL (1.8-7.7); Neutrophils % 59.9 %; Nucleated Red Blood Cells % 0 %; Platelet Count 237 10^3/cmm (130-400); Red Blood Count 3.16 10^6/uL (4.1-5.3); Red Cell Distribution Width 15.5 % (12.1-15.1); White Blood Count 8.4 10^3/uL (4.0-10.0)
[2020-07-01 08:56] LABS: Alanine Aminotransferase 63 U/L (0-33); Albumin Level 3.7 g/dL (3.5-5.2); Alkaline Phosphatase 229 IU/L (35-105); Aspartate Amino Transferase 40 U/L (0-32); Blood Urea Nitrogen 8 mg/dL (6-20); Carbon Dioxide 25 mmol/L (22-29); Chloride 105 mmol/L (98-107); Globulin 2.5 g/dL (1.3-4.6); Glomerular Filtration Rate 88.6 mL/min (90-130); Glucose 129 mg/dL (65-115); Osmolality Calculated 286 mOsm/kg (285-295); Sodium 138 mmol/L (136-145); Total Bilirubin 0.2 mg/dL (0.15-1.2); Total Protein 6.2 g/dL (6.6-8.7)
--- NOTE | 2020-07-01 10:30 | ONC FU_ITS ---
Dr. Carson follow up note Patient: Ailyn Lobato Unit #: [id number]: 1970 Dicatated By: Lucian Carson M.D.Date of Visit:Jul 01, 2020 Onc Med Follow-up/Prog Note History of Present Illness: Mrs. Lobato is a 49-year-old female with who was diagnosed with colorectal cancer per colonoscopy done on March 08, 2020 at [facility] in [facility]. She reports he went to emergency room with 6-week history of progressive worsening of right upper quadrant pain and nausea along with history of off and on bleeding per rectum over 6-month duration. She states she thought her right upper quadrant pain was due to gallbladder. She underwent CT scan of chest abdomen pelvis on March 06, 2020 which showed asymmetric thickening of the wall of rectosigmoid colon and low to intermediate density hepatic masses in the liver a mass within the right lobe measured 5.6 cm in transverse dimension. Pancreas normal, adrenal normal and increased density within the left common femoral vein and left superficial femoral vein. A venous doppler done on March 06, 2020 confirmed left popliteal to common femoral DVT. She was started on Lovenox and later transitioned to Eliquis. Mrs Lobato was diagnosed with metastatic colorectal cancer with liver mets at [facility] on . 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 Mrs Murcia was seen by Dr. Dae Ren, medical oncologist. He recommended systemic chemotherapy with FOLFOX every 2 weeks. However on April 02, 2020, she went to back to [facility] ER with confusion and mental status changes of 1 week duration and MRI scan of the brain was done with a concern for metastatic disease but it did not show any evidence of brain mets but showed multiple areas of embolic and ischemic stroke particular to the right occipital region and bilateral cerebellar region. As there was no neurology coverage, she was transferred to [facility] in [facility]. 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 On April 02, 2020, she underwent embolectomy of basilar artery and patient was discharged home on April 05, 2020 with Lovenox 60 mg twice a day and also concluded Eliquis failure. Mrs Moreland was seen by Dr. Evelio Ren and she was started on systemic chemotherapy with FOLFOX and second cycle of chemotherapy was completed on April 12, 2020. Due to her convenience as patient lives in [place], [place], she has decided to switch her care to [place]. She is completed 5 cycles of FOLFOX. She is required growth factor support for chemotherapy-induced neutropenia. She continues with Lovenox. Follow-up CT PET scan done after six cycles of modified FOLFOX, on June 28, 2020 showed there is a 4.4 x 2.8 cm rectal mass with SUV of 13.6 with presacral perirectal nodes are subcentimeter in size and too small to characterize. Multifocal hepatic metastatic disease is present most lesions do not demonstrate activity greater than that of hepatic background but several lesions are FDG positive the index lesion in the posterior segment four measuring 3.7 x 4.0 cm with SUV of 4.7 compared to 5.[address] scan done in February 2020, with significant central necrosis Came for follow-up, denies any specific complaints, but generalized weakness and fatigue, no fever chills, no nausea or vomiting, no diarrhea or constipation, no hemoptysis or hematemesis, no melena or hematochezia tolerating systemic therapy well otherwise Medications: Benadryl Allergy 1 Tablet (of 25 mg) Oral daily PRN, busPIRone HCl 1 Tablet (of 10 mg) Oral daily, Citalopram Hydrobromide 1 Tablet (of 20 mg) Oral daily, Enoxaparin Sodium 60 Units (of 300 mg/3mL) Injection b.i.d., Montelukast Sodium 1 Tablet (of 10 mg) Oral daily PRN, Probiotic 1 Capsule Oral daily, Promethazine HCl 1 Tablet (of 25 mg) Oral daily PRN, Zofran 1 Tablet (of 8 mg) Oral PRN Allergies: Bactrim, bananas lemon/[place] Sea food-omega, coffee, fish, garlic, milk , Penicillins, angel, and salmon. Review of Systems: Constitutional - Appetite is good and weight is stable. No fever, night sweats, or hot flashes. Energy level is fair, ENMT - No sinus congestion/drainage. No mouth sores. No sore throat or difficulty swallowing, Hematologic/Lymphatic - Positive for easy bruising, bleeding. Pt reports hx of blood clots, Respiratory - No shortness of breath. No cough. No pleuritic pain or hemoptysis, Cardiovascular - No angina pain. No palpitations, Gastrointestinal - No nausea or vomiting. No heartburn or acid reflux. No diarrhea or constipation. Pt continues to report bloody stools, Genitourinary (F) - No dysuria or hematuria. No urinary frequency. No urgency or incontinence, Musculoskeletal - No joint or bone pain, Neurologic - No headache or dizziness. No numbness or tingling. No other focal neurologic symptoms, Psychiatric - No anxiety or depression. No insomnia. Vital Signs: Performed on Jul 01, 2020 09:07 Height - 67.00 in Weight - 136.2 lbs (LOW) BSA - 1.72 sq.m BMI - 21.33 Temperature - 96.0 F (LOW) Pulse - 97 /min Respiration - 16 /min BP - 141/64 mm(hg) (HIGH) O2 Sat - 98 % Pain - 0 Performance Status: 1 - No physically strenuous activity, but ambulatory and able to carry out light or sedentary work (e.g. office work, light house work). (ECOG) Physical Examination: ENMT - No mouth sores, no thrush, no jaundice, Respiratory - Lungs are clear to auscultation, Cardiovascular - Regular rate and rhythm of heart, Abdomen - Soft, bowel sounds present, Extremities - No visible edema. Lab/Imaging: Test performed on Jun 17, 2020 08:35 Sodium 137 mmol/L Potassium 3.5 mmol/L Chloride 102 mmol/L CO2 24 mmol/L Anion Gap 14.5 BUN 10 mg/dL Creatinine 0.8 mg/dL Cr Clearance (Est) 81.0900 mL/min eGFR 75.9 mL/min Glucose 210 mg/dL Osmolality - Calculated 289 mOsm/kg Calcium 8.9 mg/dL Protein, Total 6.6 g/dL Albumin 4.0 g/dL Globulin 2.6 g/dL Bilirubin, Total 0.2 mg/dL ALT (SGPT) 33 U/L AST (SGOT) 28 U/L Alkaline Phosphatase 199 IU/L WBC 8.3 10 3/uL RBC 3.27 10 6/uL HGB 9.7 g/dL HCT 31.1 % MCV 95.1 fL MCH 29.7 pg MCHC 31.2 g/dL RDW 15.7 % Platelet Count 262 10 3/cmm MPV 10.4 fL Neutrophils 5.02 10 3/uL Lymphocytes 1.9 10 3/uL Monocytes 0.7 10 3/uL Eosinophils 0.4 10 3/uL Basophils 0.1 10 3/uL Neutrophil % 60.7 % Lymphocyte % 22.8 % Monocyte % 8.7 % Eosinophil % 5.0 % Basophils % 1.1 % NRBC % 0 % Test performed on Jun 02, 2020 09:21 Ferritin 66 ng/mL Iron 23 mcg/dL Iron Binding Capacity (TIBC) 352 mcg/dl % Iron Saturation 6.5 % UIBC 329 mcg/dL CEA 65.5 ng/mL Test performed on May 13, 2020 09:13 BUN/Creatinine Ratio 10 Absolute Value A/G Ratio 1.9 Absolute Value Impression: Metastatic colorectal cancer per colonoscopy done on March 08, 2020 confirmed adenocarcinoma and molecular profiling showed MMR proficient tumor, negative for KRAS and NRAS mutation but positive for BRAF V[address] scan of chest abdomen pelvis done on March 06, 2020 showed numerous low to intermediate density hepatic masses, mass within the right lobe measured 5.6 cm in transverse dimension. Nonspecific decreased attenuation noted in the periphery of spleen. And asymmetric thickening of the wall of the rectosigmoid colon. A lymph node near the segment of colon appears abnormally enlarged measuring 8.4 mm There is a fusion of T12 and L1 level. Left leg DVT confirmed by venous Doppler study done on March 06, 2020, initially treated with Eliquis, then patient was admitted [facility] on April 02, 2020, for which she was transferred to [facility] in [facility] with mental status confusion due to multiple area of embolic and ischemic stroke seen in the right occipital region and bilateral cerebellar region per MRI scan done and on April 02, 2020 she underwent embolectomy of basilar artery. And was started on Lovenox 60 mg subcu twice daily and concluded Eliquis failure. Anxiety/depression Started on systemic chemotherapy with FOLFOX by Dr. Evelio Ren in [place] and completed a second cycle on April 12, 2020. She has now completed a total of 5 cycles of the FOLFOX and she is tolerating it well. She did require dose reduction with cycle 5 due to worsening peripheral neuropathy, increased diarrhea and mouth sores. CT PET scan done after six cycles of systemic therapy with modified dose FOLFOX showed good response, FDG positive rectal mass and extensive hepatic metastatic disease, most lesions do not demonstrate significant uptake. Suggesting a possible positive response to therapy. Index lesion is 3.7 x 4 cm compared to 5.6 cm in February 2020 Plan: Discussed with patient regarding her labs white blood count of 8.4 hemoglobin 9.2 hematocrit 29.8 platelets 237,000 CMP within normal limits and follow-up CT PET scan which showed excellent response to the treatment Clinically, patient is doing well with no new signs symptom except generalized weakness and fatigue which could be multifactorial including iron deficiency anemia and chemotherapy. We will proceed with next dose of modified FOLFOX and then she will return weekly 2 weeks with CBC CMP and As far as her iron deficiency anemia is concerned as her anemia work-up done on June 02, 2020 shows iron saturation was 6.5% and iron was 23 ferritin 66, as patient has intolerance to oral iron, we will consider Injectafer 750 mg IV weekly x2 and then follow hemoglobin and iron studies. Her follow-up CT PET scan showed excellent response to the chemotherapy now only active sites the liver and rectum and in liver most of the lesions are FDG negative and index lesion is smaller in size and centrally necrosed indicating of response to the chemotherapy and around primary lesion perirectal and presacral lymph nodes subcentimeter in size and too small to characterize. At this point, we will refer her to tertiary care center for evaluation for resection of rectal mass. In the meantime, we will continue with systemic therapy Signed By: Lucian Carson M.D. <<Signature on File>>
[2020-07-01] MEDS: famotidine 20 mg/2 mL INJ IVP (10:48)
[2020-07-01] MEDS: dextrose 5% 250 ML 75 ML (10:53)
[2020-07-01] MEDS: fosaprepitant 150 MG in sodium chloride 0.9% 150 ML 300 MG IV (11:14)
[2020-07-01] MEDS: palonosetron 0.25 mg/5 mL SDV IV (14:42)
[2020-07-01] MEDS: ferric carboxy (IVPB) 750 MG in sodium chloride 0.9% (100 ml) 100 ML 460 MG IV (15:44)
[2020-07-01] MEDS: acetaminophen 325 mg Tablet 650 MG PO (15:53)
[2020-07-01] MEDS: LORazepam 0.5 mg Tablet PO (15:53)
[2020-07-23 08:02] LABS: Basophils # 0.1 10^3/uL (0.0-0.1); Basophils % 0.8 %; Eosinophils # 0.3 10^3/uL (0.0-0.8); Eosinophils % 4.2 %; Hematocrit 35.2 % (37.0-47.0); Hemoglobin 10.9 g/dL (11.5-15.3); Lymphocytes # 2.1 10^3/uL (0.8-4.8); Lymphocytes % 26.8 %; Mean Corpuscular Hemoglobin 30.8 pg (28.0-34.0); Mean Corpuscular Volume 99.4 fL (81-99); Mean Platelet Volume 9.9 fL (7.4-10.4); Monocytes # 0.9 10^3/uL (0.2-0.9); Monocytes % 10.9 %; Neutrophils # 4.49 10^3/uL (1.8-7.7); Neutrophils % 56.8 %; Nucleated Red Blood Cells % 0 %; Platelet Count 257 10^3/cmm (130-400); Red Blood Count 3.54 10^6/uL (4.1-5.3); Red Cell Distribution Width 19.5 % (12.1-15.1); White Blood Count 7.9 10^3/uL (4.0-10.0)
[2020-07-23 08:36] LABS: Alanine Aminotransferase 39 U/L (0-33); Albumin Level 3.7 g/dL (3.5-5.2); Alkaline Phosphatase 193 IU/L (35-105); Anion Gap 10.2 (5-19); Aspartate Amino Transferase 28 U/L (0-32); Blood Urea Nitrogen 8 mg/dL (6-20); Calcium 9.3 mg/dL (8.5-10.5); Carbon Dioxide 27 mmol/L (22-29); Chloride 106 mmol/L (98-107); Globulin 2.6 g/dL (1.3-4.6); Glomerular Filtration Rate 105.8 mL/min (90-130); Glucose 91 mg/dL (65-115); Osmolality Calculated 286 mOsm/kg (285-295); Potassium 4.2 mmol/L (3.5-5.1); Sodium 139 mmol/L (136-145); Total Bilirubin 0.2 mg/dL (0.15-1.2); Total Protein 6.3 g/dL (6.6-8.7)
[2020-07-23] MEDS: famotidine 20 mg/2 mL INJ IVP (10:02)
[2020-07-23] MEDS: dextrose 5% 250 ML 75 ML IV (10:02)
[2020-07-23] MEDS: palonosetron 0.25 mg/5 mL SDV IV (10:05)
[2020-07-23] MEDS: fosaprepitant 150 MG in sodium chloride 0.9% 150 ML 300 MG IV (10:22)
[2020-07-23 11:07] LABS: Follicle Stimulating Hormone 35.2 mIU/mL
[2020-07-23 13:54] LABS: Carcinoembryonic Antigen 46.7 ng/mL (0.0-4.7)
[2020-07-23] MEDS: ferric carboxy (IVPB) 750 MG in sodium chloride 0.9% (100 ml) 100 ML 460 MG IV (14:40)
--- NOTE | 2020-07-28 20:14 | ONC FU_ITS ---
[facility] Patient Note Patient: Ailyn Lobato Unit #: [id number]: 1970 Dictated By: Aman SargentDate of Visit: Jul 23, 2020 Onc MED Follow-Up/Prog Note Chief Complaint: Metastatic colon cancer History of Present Illness: Mrs. Lobato is a 49-year-old female with who was diagnosed with colorectal cancer per colonoscopy done on March 08, 2020 at [facility] in [facility]. She reports he went to emergency room with 6-week history of progressive worsening of right upper quadrant pain and nausea along with history of off and on bleeding per rectum over 6-month duration. She states she thought her right upper quadrant pain was due to gallbladder. She underwent CT scan of chest abdomen pelvis on March 06, 2020 which showed asymmetric thickening of the wall of rectosigmoid colon and low to intermediate density hepatic masses in the liver a mass within the right lobe measured 5.6 cm in transverse dimension. Pancreas normal, adrenal normal and increased density within the left common femoral vein and left superficial femoral vein. A venous doppler done on March 06, 2020 confirmed left popliteal to common femoral DVT. She was started on Lovenox and later transitioned to Eliquis. Mrs Lobato was diagnosed with metastatic colorectal cancer with liver mets at [facility] on . 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 Mrs Murcia was seen by Dr. Dae Ren, medical oncologist. He recommended systemic chemotherapy with FOLFOX every 2 weeks. However on April 02, 2020, she went to back to [facility] ER with confusion and mental status changes of 1 week duration and MRI scan of the brain was done with a concern for metastatic disease but it did not show any evidence of brain mets but showed multiple areas of embolic and ischemic stroke particular to the right occipital region and bilateral cerebellar region. As there was no neurology coverage, she was transferred to [facility] in [facility]. 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 On April 02, 2020, she underwent embolectomy of basilar artery and patient was discharged home on April 05, 2020 with Lovenox 60 mg twice a day and also concluded Eliquis failure. Mrs Moreland was seen by Dr. Evelio Ren and she was started on systemic chemotherapy with FOLFOX and second cycle of chemotherapy was completed on April 12, 2020. Due to her convenience as patient lives in [place], [place], she has decided to switch her care to [place]. She is completed 5 cycles of FOLFOX. She is required growth factor support for chemotherapy-induced neutropenia. She continues with Lovenox. Follow-up CT PET scan done after six cycles of modified FOLFOX, on June 28, 2020 showed there is a 4.4 x 2.8 cm rectal mass with SUV of 13.6 with presacral perirectal nodes are subcentimeter in size and too small to characterize. Multifocal hepatic metastatic disease is present most lesions do not demonstrate activity greater than that of hepatic background but several lesions are FDG positive the index lesion in the posterior segment four measuring 3.7 x 4.0 cm with SUV of 4.7 compared to 5.[address] scan done in February 2020, with significant central necrosis. She continues with FOLFOX with growth factor support. Ms. Lobato is here today for follow-up. She is due for cycle 8 FOLFOX. She received Injectafer on July 01, 2020 for oral iron intolerant documented iron deficiency. Her iron saturation on June 02, 2020 was 6.5% her ferritin was 66 and iron level was 23. Her hemoglobin at that time was 9.3. Her second dose of Injectafer has been delayed due to increment weather. She received that second dose of Injectafer today as well. She has no new concerns today other than she states she has not had a menstrual cycle in quite a while. She thinks it has been close to a year. She states she is not sure that she is had menopause as she does not feel that she has had any hot flash symptoms. She denies any fever or chills. She states her appetite is good. Her energy is good. She does have neuropathy in her fingers and toes but states that stable and last just for couple days after treatment and then is gone. She states it is not worsening. She denies any diarrhea or constipation. She continues to have some bruising on her abdomen due to the Lovenox injections as she continues that for her DVT of the right vertebral artery at the V4 segment just proximal to the basilar artery origin. There was occlusive thrombus in the tip of the basilar artery with extension into the bilateral P1 segments and also occlusion of the left superior cerebellar artery. She did have embolectomy of the basilar artery. She is remained on Lovenox 60 mg twice daily since that discharge on April 02, 2020. She denies any other bruising. She denies any shortness of breath orthopnea. Her ECOG is 1. Past Medical History: Anxiety Depression Stroke Dvt in 2019 Past Surgical History: Ear surgery Portacath placement Embolectomy of basilar artery occulsion-[facility], [place], [place] in 2019 Biopsy of rectosigmoid colon-Dr Catalan/[facility] in 2019 Colonoscopy in 2019 Allergies: Bactrim, bananas lemon/bridge[place] Sea food-omega, coffee, fish, garlic, milk , Penicillins, angel, and salmon. Medications: Benadryl Allergy 1 Tablet (of 25 mg) Oral daily PRN busPIRone HCl 1 Tablet (of 10 mg) Oral daily Citalopram Hydrobromide 1 Tablet (of 20 mg) Oral daily Enoxaparin Sodium 60 Units (of 300 mg/3mL) Injection b.i.d. Montelukast Sodium 1 Tablet (of 10 mg) Oral daily PRN Probiotic 1 Capsule Oral daily Promethazine HCl 1 Tablet (of 25 mg) Oral daily PRN Zofran 1 Tablet (of 8 mg) Oral PRN Family History: Social History: Ms. Lobato is . Ms. Lobato no longer smokes. She has no history of drinking. Review Of Symptoms: Constitutional Denies fevers, chills, night sweats, excessive fatigue or weight loss. Has fatigue but recovers with rest. Allergic/Immunologic No reactions. Eyes Denies significant visual changes. No diplopia. No amaurosis. ENMT Denies changes in hearing, sore throat, mouth sores, difficulty or changes in swallowing ability, and/or sinus drainage. She states her mouth is much better and she had no problems with the dose reduction. Hematologic/Lymphatic Denies easy bruising or bleeding. The patient denies any tender or palpable lymph nodes. Respiratory Denies dyspnea on exertion, chest pain, cough or hemoptysis. Denies orthopnea. Cardiovascular Denies anginal chest pain, palpitations or orthopnea. Gastrointestinal Denies current nausea, vomiting, diarrhea, GI bleeding, or constipation. Denies change in bowel habits and/or stool color, no heartburn or early satiety. Genitourinary (F) No hematuria, hesitancy, incontinence, vaginal bleeding, discharge or other problems with urination. Musculoskeletal Denies joint pain, swelling or redness. No decreased range of motion. Integumentary Denies chronic rashes, inflammation, ulcerations or skin changes. Neurologic Denies headache, blurred vision, and no areas of focal weakness or numbness. Normal gait. No sensory problems. Psychiatric Denies insomnia, depression, neville or mood swings. Vital Signs: Performed on Jul 23, 2020 08:56 Height - 67.00 in Weight - 139 lbs (HIGH) BSA - 1.73 sq.m BMI - 21.77 Temperature - 97.5 F (LOW) Pulse - 93 /min Respiration - 18 /min BP - 138/81 mm(hg) O2 Sat - 96 % Pain - 0 Fatigue - 2,1 - No physically strenuous activity, but ambulatory and able to carry out light or sedentary work (e.g. office work, light house work). (ECOG) Physical Examination: Constitutional Alert, oriented, no acute distress. Skin pink, warm and dry. Head Normocephalic; atraumatic. Eyes Conjunctivae and sclerae are clear and without icterus. Pupils are reactive and equal. Neck Supple without masses or thyromegaly. No jugular venous distension. Hematologic/Lymphatic No petechiae or purpura. Bruising on abdomen due to Lovenox. Respiratory Lungs are clear to auscultation without rhonchi or wheezing. Cardiovascular Regular rate and rhythm of heart without murmurs,clicks, gallops or rubs. Chest Right subclavian venous access device insertion site is unremarkable. Abdomen Non-tender, non-distended, no masses or ascites. Good bowel sounds noted in all quads. No guarding or rebound tenderness. No pulsatile masses. Scattered mild bruising from Lovenox injections. Back/Spine Non-tender to palpation. Extremities No visible deformities, no cyanosis, clubbing or edema. Musculoskeletal No tenderness or swelling, normal range of motion without obvious weakness. Integumentary No rashes or lesions. Neurologic No sensory or motor deficits, normal cerebellar function, normal gait. Psychiatric Alert and oriented times three. Coherent speech. Verbalizes understanding of our discussions today. Laboratory:Test performed on Jul 23, 2020 07:52 FSH 35.2 mIU/mL Sodium 139 mmol/L Potassium 4.2 mmol/L Chloride 106 mmol/L CO2 27 mmol/L Anion Gap 10.2 BUN 8 mg/dL Creatinine 0.6 mg/dL Cr Clearance (Est) 108.1200 mL/min eGFR 105.8 mL/min Glucose 91 mg/dL Osmolality - Calculated 286 mOsm/kg Calcium 9.3 mg/dL Protein, Total 6.3 g/dL Albumin 3.7 g/dL Globulin 2.6 g/dL Bilirubin, Total 0.2 mg/dL ALT (SGPT) 39 U/L AST (SGOT) 28 U/L Alkaline Phosphatase 193 IU/L WBC 7.9 10 3/uL RBC 3.54 10 6/uL HGB 10.9 g/dL HCT 35.2 % MCV 99.4 fL MCH 30.8 pg MCHC 31.0 g/dL RDW 19.5 % Platelet Count 257 10 3/cmm MPV 9.9 fL Neutrophils 4.49 10 3/uL Lymphocytes 2.1 10 3/uL Monocytes 0.9 10 3/uL Eosinophils 0.3 10 3/uL Basophils 0.1 10 3/uL Neutrophil % 56.8 % Lymphocyte % 26.8 % Monocyte % 10.9 % Eosinophil % 4.2 % Basophils % 0.8 % NRBC % 0 % CEA 46.7 ng/mL Test performed on Jun 02, 2020 09:21 Ferritin 66 ng/mL Iron 23 mcg/dL Iron Binding Capacity (TIBC) 352 mcg/dl % Iron Saturation 6.5 % UIBC 329 mcg/dL Test performed on May 13, 2020 09:13 BUN/Creatinine Ratio 10 Absolute Value A/G Ratio 1.9 Absolute Value Impression: Metastatic colorectal cancer per colonoscopy done on March 08, 2020 confirmed adenocarcinoma and molecular profiling showed MMR proficient tumor, negative for KRAS and NRAS mutation but positive for BRAF V[address] scan of chest abdomen pelvis done on March 06, 2020 showed numerous low to intermediate density hepatic masses, mass within the right lobe measured 5.6 cm in transverse dimension. Nonspecific decreased attenuation noted in the periphery of spleen. And asymmetric thickening of the wall of the rectosigmoid colon. A lymph node near the segment of colon appears abnormally enlarged measuring 8.4 mm There is a fusion of T12 and L1 level. Left leg DVT confirmed by venous Doppler study done on March 06, 2020, initially treated with Eliquis, then patient was admitted [facility] on April 02, 2020, for which she was transferred to [facility] in [facility] with mental status confusion due to multiple area of embolic and ischemic stroke seen in the right occipital region and bilateral cerebellar region per MRI scan done and on April 02, 2020 she underwent embolectomy of basilar artery. And was started on Lovenox 60 mg subcu twice daily and concluded Eliquis failure. Anxiety/depression Started on systemic chemotherapy with FOLFOX by Dr. Evelio Ren in [place] and completed a second cycle on April 12, 2020. She has now completed a total of 5 cycles of the FOLFOX and she is tolerating it well. She did require dose reduction with cycle 5 due to worsening peripheral neuropathy, increased diarrhea and mouth sores. Plan: PROBLEMS ADDRESSED TODAY 1. Metastatic colorectal cancer: A. Proceed with cycle 8 FOLFOX (at same dosing as cycle 7) and continue Neulasta support for chemotherapy-induced neutropenia. B. Supportive care as needed. C. Today's labs were reviewed in detail and discussed with Ms. Lobato and a copy was given to her. WBC 7.9, hemoglobin 10.9, platelets 259,000 ANC is 4490. Potassium 4.2 random glucose 91 creatinine 0.6 LFTs are normal CEA from July 01, 2020 is 56.0. It was 65.5 on June 02, 2020. Her CEA was 187 on April 28, 2020. 2. Anemia: A. She was found to be iron deficient with her labs on June 02, 2019 her iron sat was 6.5% her iron level was 23 and her ferritin was 66 TIBC was 352. She was unable to tolerate oral iron due to GI upset. B. Due to the intolerance of the oral iron she was offered parenteral iron replacement with Injectafer. She began her first dose on July 01, 2020. Her second dose has been delayed due to increment weather. She is due for that today. 3. Thrombosis: A. DVT of the left popliteal to common femoral on March 06, 2020. She was started on Lovenox and transition to Eliquis B. 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 She resumed the Lovenox and was considered in Eliquis failure due to the recurrent clot. C. She continues with Lovenox 60 mg subcutaneous twice daily. 4. Amenorrhea A. We will check an FSH level on her today document menopause. 5. Follow-up plan: A. We will plan to see her back in 2 weeks with CBC, CMP and CEA. She will be due for cycle 9 FOLFOX at that time. B. Mrs. Lobato was instructed to contact us in interim should questions or problems arise. Signed By: Aman Sargent-, PHIL Carson MD <<Signature on File>>
== END 2020-07-27 23:59 | disposition home or self-care (01) ==
LOC: ONCMED 05:46
PROVIDERS: Nurse Practitioner; PCP Nurse Practitioner Family; Visit Provider Internal Medicine Hematology & Oncology
DX: Z51.11 Encounter for antineoplastic chemotherapy (principal); C19 Malignant neoplasm of rectosigmoid junction; C78.7 Secondary malignant neoplasm of liver and intrahepatic bile duct; F41.9 Anxiety disorder, unspecified; F32.9 Major depressive disorder, single episode, unspecified; D50.9 Iron deficiency anemia, unspecified; D70.1 Agranulocytosis secondary to cancer chemotherapy; T45.1X5A Adverse effect of antineoplastic and immunosuppressive drugs, initial encounter; N91.2 Amenorrhea, unspecified; Z79.01 Long term (current) use of anticoagulants; Z79.899 Other long term (current) drug therapy
CPT/HCPCS: 80053; 82378; 83001; 85025; 96367; 96368; 96372; 96375; 96413; 96415; 96416; 96523; 99215; J0640; J1100; J1439; J1453; J2469; J2505; J3490; J9190; J9263

== ENCOUNTER 2020-08-21 05:39 | Outpatient (RCR) | payer OTHER, SELFPAY ==
[2020-08-05 08:31] LABS: Basophils # 0.1 10^3/uL (0.0-0.1); Basophils % 0.7 %; Eosinophils # 0.5 10^3/uL (0.0-0.8); Eosinophils % 3.9 %; Hematocrit 36.1 % (37.0-47.0); Hemoglobin 11.4 g/dL (11.5-15.3); Lymphocytes # 1.6 10^3/uL (0.8-4.8); Lymphocytes % 13.4 %; Mean Corpuscular HGB Conc 31.6 g/dL (30.0-36.0); Mean Corpuscular Hemoglobin 31.8 pg (28.0-34.0); Mean Corpuscular Volume 100.8 fL (81-99); Mean Platelet Volume 10.7 fL (7.4-10.4); Monocytes # 0.9 10^3/uL (0.2-0.9); Monocytes % 7.7 %; Neutrophils # 8.71 10^3/uL (1.8-7.7); Neutrophils % 72.4 %; Nucleated Red Blood Cells % 0 %; Platelet Count 188 10^3/cmm (130-400); Red Blood Count 3.58 10^6/uL (4.1-5.3); Red Cell Distribution Width 19.4 % (12.1-15.1)
[2020-08-05 08:50] LABS: Alanine Aminotransferase 53 U/L (0-33); Albumin Level 3.8 g/dL (3.5-5.2); Alkaline Phosphatase 239 IU/L (35-105); Anion Gap 11.7 (5-19); Aspartate Amino Transferase 50 U/L (0-32); Blood Urea Nitrogen 10 mg/dL (6-20); Calcium 9.1 mg/dL (8.5-10.5); Carbon Dioxide 25 mmol/L (22-29); Chloride 107 mmol/L (98-107); Globulin 2.6 g/dL (1.3-4.6); Glomerular Filtration Rate 88.6 mL/min (90-130); Glucose 75 mg/dL (65-115); Osmolality Calculated 288 mOsm/kg (285-295); Potassium 3.7 mmol/L (3.5-5.1); Sodium 140 mmol/L (136-145); Total Bilirubin 0.2 mg/dL (0.15-1.2); Total Protein 6.4 g/dL (6.6-8.7)
[2020-08-05] MEDS: dextrose 5% 250 ML 75 ML IV (10:18)
[2020-08-05] MEDS: famotidine 20 mg/2 mL INJ IVP (10:18)
[2020-08-05] MEDS: palonosetron 0.25 mg/5 mL SDV IV (10:20)
[2020-08-05] MEDS: fosaprepitant 150 MG in sodium chloride 0.9% 150 ML 300 MG IV (10:40)
[2020-08-05 11:15] LABS: Carcinoembryonic Antigen 43.2 ng/mL (0.0-4.7)
--- NOTE | 2020-08-17 14:24 | ONC FU_ITS ---
[facility] Patient Note Patient: Ailyn Lobato Unit #: [id number]: 1970 Dictated By: Aman SargentDate of Visit: Aug 05, 2020 Onc MED Follow-Up/Prog Note Chief Complaint: Metastatic colon cancer History of Present Illness: Mrs. Lobato is a 49-year-old female with who was diagnosed with colorectal cancer per colonoscopy done on March 08, 2020 at [facility] in [facility]. She reports he went to emergency room with 6-week history of progressive worsening of right upper quadrant pain and nausea along with history of off and on bleeding per rectum over 6-month duration. She states she thought her right upper quadrant pain was due to gallbladder. She underwent CT scan of chest abdomen pelvis on March 06, 2020 which showed asymmetric thickening of the wall of rectosigmoid colon and low to intermediate density hepatic masses in the liver a mass within the right lobe measured 5.6 cm in transverse dimension. Pancreas normal, adrenal normal and increased density within the left common femoral vein and left superficial femoral vein. A venous doppler done on March 06, 2020 confirmed left popliteal to common femoral DVT. She was started on Lovenox and later transitioned to Eliquis. Mrs Lobato was diagnosed with metastatic colorectal cancer with liver mets at [facility] on . 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 Mrs Murcia was seen by Dr. Dae Ren, medical oncologist. He recommended systemic chemotherapy with FOLFOX every 2 weeks. However on April 02, 2020, she went to back to [facility] ER with confusion and mental status changes of 1 week duration and MRI scan of the brain was done with a concern for metastatic disease but it did not show any evidence of brain mets but showed multiple areas of embolic and ischemic stroke particular to the right occipital region and bilateral cerebellar region. As there was no neurology coverage, she was transferred to [facility] in [facility]. 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 On April 02, 2020, she underwent embolectomy of basilar artery and patient was discharged home on April 05, 2020 with Lovenox 60 mg twice a day and also concluded Eliquis failure. Mrs Moreland was seen by Dr. Evelio Ren and she was started on systemic chemotherapy with FOLFOX and second cycle of chemotherapy was completed on April 12, 2020. Due to her convenience as patient lives in [place], [place], she has decided to switch her care to [place]. She is completed 5 cycles of FOLFOX. She is required growth factor support for chemotherapy-induced neutropenia. She continues with Lovenox. Follow-up CT PET scan done after six cycles of modified FOLFOX, on June 28, 2020 showed there is a 4.4 x 2.8 cm rectal mass with SUV of 13.6 with presacral perirectal nodes are subcentimeter in size and too small to characterize. Multifocal hepatic metastatic disease is present most lesions do not demonstrate activity greater than that of hepatic background but several lesions are FDG positive the index lesion in the posterior segment four measuring 3.7 x 4.0 cm with SUV of 4.7 compared to 5.[address] scan done in February 2020, with significant central necrosis. She continues with FOLFOX with growth factor support. Ms. Lobato is here today for follow-up. She is due for cycle 9 FOLFOX. She received Injectafer on July 01, 2020 for oral iron intolerant documented iron deficiency. Her iron saturation on June 02, 2020 was 6.5% her ferritin was 66 and iron level was 23. Her hemoglobin at that time was 9.3. Her second dose of Injectafer has been delayed due to increment weather. She received her second dose on 07/23/2020. She has no new concerns today. She denies any fever or chills. She states her appetite is good. Her energy is good. She does have neuropathy in her fingers and toes but states that stable and last just for couple days after treatment and then is gone. She states it is not worsening. She denies any diarrhea or constipation. She continues to have some bruising on her abdomen due to the Lovenox injections as she continues that for her DVT of the right vertebral artery at the V4 segment just proximal to the basilar artery origin. There was occlusive thrombus in the tip of the basilar artery with extension into the bilateral P1 segments and also occlusion of the left superior cerebellar artery. She did have embolectomy of the basilar artery. She hasremained on Lovenox 60 mg twice daily since that discharge on April 02, 2020. She denies any other bruising. She denies any shortness of breath orthopnea. She has had amenorrhea for she thinks over a year. An FSH was drawn on her 2020 it was 35.2 indicating postmenopausal status. Her ECOG is 1. Past Medical History: Anxiety Depression Stroke Dvt in 2019 Past Surgical History: Ear surgery Portacath placement Embolectomy of basilar artery occulsion-[facility] [place], [place] in 2019 Biopsy of rectosigmoid colon-Dr Catalan/[facility] in 2019 Colonoscopy in 2019 Allergies: Bactrim, bananas lemon/[employer] [facility] Sea food-omega, coffee, fish, garlic, milk , Penicillins, angel, and salmon. Medications: Benadryl Allergy 1 Tablet (of 25 mg) Oral daily PRN busPIRone HCl 1 Tablet (of 10 mg) Oral daily Citalopram Hydrobromide 1 Tablet (of 20 mg) Oral daily Enoxaparin Sodium 60 Units (of 300 mg/3mL) Injection b.i.d. Montelukast Sodium 1 Tablet (of 10 mg) Oral daily PRN Probiotic 1 Capsule Oral daily Promethazine HCl 1 Tablet (of 25 mg) Oral daily PRN Zofran 1 Tablet (of 8 mg) Oral PRN Family History: Social History: Ms. Lobato is . Ms. Lobato no longer smokes. She has no history of drinking. Review Of Symptoms: Constitutional Denies fevers, chills, night sweats, excessive fatigue or weight loss. Has fatigue but recovers with rest. Allergic/Immunologic No reactions. Eyes Denies significant visual changes. No diplopia. No amaurosis. ENMT Denies changes in hearing, sore throat, mouth sores, difficulty or changes in swallowing ability, and/or sinus drainage. Hematologic/Lymphatic Denies easy bruising or bleeding. The patient denies any tender or palpable lymph nodes. Respiratory Denies dyspnea on exertion, chest pain, cough or hemoptysis. Denies orthopnea. Cardiovascular Denies anginal chest pain, palpitations or orthopnea. Gastrointestinal Denies current nausea, vomiting, diarrhea, GI bleeding, or constipation. Denies change in bowel habits and/or stool color, no heartburn or early satiety. Genitourinary (F) No hematuria, hesitancy, incontinence, vaginal bleeding, discharge or other problems with urination. Musculoskeletal Denies joint pain, swelling or redness. No decreased range of motion. Integumentary Denies chronic rashes, inflammation, ulcerations or skin changes. Neurologic Denies headache, blurred vision, and no areas of focal weakness or numbness. Normal gait. No sensory problems. Psychiatric Denies insomnia, depression, neville or mood swings. Vital Signs: Performed on Aug 05, 2020 09:26 Height - 67.00 in Weight - 139.6 lbs (HIGH) BSA - 1.74 sq.m BMI - 21.86 Temperature - 97.9 F (LOW) Pulse - 96 /min Respiration - 18 /min BP - 152/89 mm(hg) (HIGH) O2 Sat - 96 % Pain - 0,1 - No physically strenuous activity, but ambulatory and able to carry out light or sedentary work (e.g. office work, light house work). (ECOG) Physical Examination: Constitutional Alert, oriented, no acute distress. Skin pink, warm and dry. Head Normocephalic; atraumatic. Eyes Conjunctivae and sclerae are clear and without icterus. Pupils are reactive and equal. Neck Supple without masses or thyromegaly. No jugular venous distension. Hematologic/Lymphatic No petechiae or purpura. Bruising on abdomen due to Lovenox. Respiratory Lungs are clear to auscultation without rhonchi or wheezing. Cardiovascular Regular rate and rhythm of heart without murmurs,clicks, gallops or rubs. Chest Right subclavian venous access device insertion site is unremarkable. Abdomen Non-tender, non-distended, no masses or ascites. Good bowel sounds noted in all quads. No guarding or rebound tenderness. No pulsatile masses. Scattered mild bruising from Lovenox injections. Back/Spine Non-tender to palpation. Extremities No visible deformities, no cyanosis, clubbing or edema. Musculoskeletal No tenderness or swelling, normal range of motion without obvious weakness. Integumentary No rashes or lesions. Neurologic No sensory or motor deficits, normal cerebellar function, normal gait. Psychiatric Alert and oriented times three. Coherent speech. Verbalizes understanding of our discussions today. Laboratory:Test performed on Aug 05, 2020 08:18 Sodium 140 mmol/L Potassium 3.7 mmol/L Chloride 107 mmol/L CO2 25 mmol/L Anion Gap 11.7 BUN 10 mg/dL Creatinine 0.7 mg/dL Cr Clearance (Est) 92.6700 mL/min eGFR 88.6 mL/min Glucose 75 mg/dL Osmolality - Calculated 288 mOsm/kg Calcium 9.1 mg/dL Protein, Total 6.4 g/dL Albumin 3.8 g/dL Globulin 2.6 g/dL Bilirubin, Total 0.2 mg/dL ALT (SGPT) 53 U/L AST (SGOT) 50 U/L Alkaline Phosphatase 239 IU/L WBC 12.0 10 3/uL RBC 3.58 10 6/uL HGB 11.4 g/dL HCT 36.1 % MCV 100.8 fL MCH 31.8 pg MCHC 31.6 g/dL RDW 19.4 % Platelet Count 188 10 3/cmm MPV 10.7 fL Neutrophils 8.71 10 3/uL Lymphocytes 1.6 10 3/uL Monocytes 0.9 10 3/uL Eosinophils 0.5 10 3/uL Basophils 0.1 10 3/uL Neutrophil % 72.4 % Lymphocyte % 13.4 % Monocyte % 7.7 % Eosinophil % 3.9 % Basophils % 0.7 % NRBC % 0 % CEA 43.2 ng/mL Test performed on Jul 23, 2020 07:52 FSH 35.2 mIU/mL Test performed on Jun 02, 2020 09:21 Ferritin 66 ng/mL Iron 23 mcg/dL Iron Binding Capacity (TIBC) 352 mcg/dl % Iron Saturation 6.5 % UIBC 329 mcg/dL Test performed on May 13, 2020 09:13 BUN/Creatinine Ratio 10 Absolute Value A/G Ratio 1.9 Absolute Value Impression: Metastatic colorectal cancer per colonoscopy done on March 08, 2020 confirmed adenocarcinoma and molecular profiling showed MMR proficient tumor, negative for KRAS and NRAS mutation but positive for BRAF V[address] scan of chest abdomen pelvis done on March 06, 2020 showed numerous low to intermediate density hepatic masses, mass within the right lobe measured 5.6 cm in transverse dimension. Nonspecific decreased attenuation noted in the periphery of spleen. And asymmetric thickening of the wall of the rectosigmoid colon. A lymph node near the segment of colon appears abnormally enlarged measuring 8.4 mm There is a fusion of T12 and L1 level. Left leg DVT confirmed by venous Doppler study done on March 06, 2020, initially treated with Eliquis, then patient was admitted [facility] on April 02, 2020, for which she was transferred to [facility] in [facility] with mental status confusion due to multiple area of embolic and ischemic stroke seen in the right occipital region and bilateral cerebellar region per MRI scan done and on April 02, 2020 she underwent embolectomy of basilar artery. And was started on Lovenox 60 mg subcu twice daily and concluded Eliquis failure. Anxiety/depression Started on systemic chemotherapy with FOLFOX by Dr. Evelio Ren in [place] and completed a second cycle on April 12, 2020. She has now completed a total of 8 cycles of the FOLFOX and she is tolerating it well. She did require dose reduction with cycle 5 due to worsening peripheral neuropathy, increased diarrhea and mouth sores. Plan: PROBLEMS ADDRESSED TODAY 1. Metastatic colorectal cancer: A. Proceed with cycle 9 FOLFOX (at same dosing as cycle 8) and continue Neulasta support for chemotherapy-induced neutropenia. B. Supportive care as needed. C. Today's labs were reviewed in detail and discussed with Ms. Lobato and a copy was given to her. WBC 12.0, hemoglobin 11.4, platelets 188,000 ANC is 8710. Potassium 3.7 random glucose 75 creatinine 0.7 ALT is 53 AST is 50 alk phos is 239 her last CEA was 46.7 on July 01, 2020. It was 65.5 on June 02, 2020. Her CEA was 187 on April 28, 2020. 2. Anemia: A. She was found to be iron deficient with her labs on June 02, 2019 her iron sat was 6.5% her iron level was 23 and her ferritin was 66 TIBC was 352. She was unable to tolerate oral iron due to GI upset. B. Due to the intolerance of the oral iron she was offered parenteral iron replacement with Injectafer. She began her first dose on July 01, 2020. Her second dose had been delayed due to increment weather. The second dose was administered on July 23, 2020. Her hemoglobin is showing improvement today at 11.4. Her iron studies have not been repeated yet. As it has only been 1 week since she completed the Injectafer. 3. Thrombosis: A. DVT of the left popliteal to common femoral on March 06, 2020. She was started on Lovenox and transition to Eliquis B. 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 She resumed the Lovenox and was considered in Eliquis failure due to the recurrent clot. C. She continues with Lovenox 60 mg subcutaneous twice daily. 4. Amenorrhea A. FSH level from July 23, 2020 is 35.2 which indicates menopause. 5. Follow-up plan: A. We will plan to see her back in 2 weeks with CBC, CMP and CEA. She will be due for cycle 10 FOLFOX at that time. B. Mrs. Lobato was instructed to contact us in interim should questions or problems arise. Signed By: Aman Sargent-, AOCNP Lucian Tabor MD <<Signature on File>>
[2020-08-19 08:53] LABS: Basophils # 0.1 10^3/uL (0.0-0.1); Basophils % 0.8 %; Eosinophils # 0.3 10^3/uL (0.0-0.8); Hematocrit 35.3 % (37.0-47.0); Hemoglobin 11.4 g/dL (11.5-15.3); Lymphocytes # 1.6 10^3/uL (0.8-4.8); Mean Corpuscular HGB Conc 32.3 g/dL (30.0-36.0); Mean Corpuscular Volume 102.3 fL (81-99); Mean Platelet Volume 10.9 fL (7.4-10.4); Monocytes # 0.9 10^3/uL (0.2-0.9); Monocytes % 8.5 %; Neutrophils # 7.61 10^3/uL (1.8-7.7); Neutrophils % 70.3 %; Nucleated Red Blood Cells % 0 %; Platelet Count 174 10^3/cmm (130-400); Red Blood Count 3.45 10^6/uL (4.1-5.3); Red Cell Distribution Width 19.1 % (12.1-15.1); White Blood Count 10.8 10^3/uL (4.0-10.0)
[2020-08-19 09:56] LABS: Carcinoembryonic Antigen 38.4 ng/mL (0.0-4.7)
[2020-08-19 10:07] LABS: Alanine Aminotransferase 47 U/L (0-33); Albumin Level 3.4 g/dL (3.5-5.2); Alkaline Phosphatase 245 IU/L (35-105); Aspartate Amino Transferase 42 U/L (0-32); Blood Urea Nitrogen 10 mg/dL (6-20); Calcium 8.2 mg/dL (8.5-10.5); Carbon Dioxide 23 mmol/L (22-29); Chloride 105 mmol/L (98-107); Globulin 2.5 g/dL (1.3-4.6); Glomerular Filtration Rate 105.8 mL/min (90-130); Glucose 69 mg/dL (65-115); Osmolality Calculated 283 mOsm/kg (285-295); Sodium 138 mmol/L (136-145); Total Bilirubin 0.2 mg/dL (0.15-1.2); Total Protein 5.9 g/dL (6.6-8.7)
[2020-08-19] MEDS: famotidine 20 mg/2 mL INJ IVP (11:26)
[2020-08-19] MEDS: dextrose 5% 250 ML 75 ML IV (11:26)
[2020-08-19] MEDS: palonosetron 0.25 mg/5 mL SDV IVP (11:28)
[2020-08-19] MEDS: fosaprepitant 150 MG in sodium chloride 0.9% 150 ML 300 MG IV (11:49)
[2020-08-19] MEDS: acetaminophen 325 mg Tablet 650 MG PO (13:20)
[2020-08-19] MEDS: OLANZapine 10 mg TABLET PO (13:20)
--- NOTE | 2020-08-27 19:14 | ONC FU_ITS ---
[facility] Patient Note Patient: Ailyn Lobato Unit #: [id number]: 1970 Dictated By: Aman SargentDate of Visit: Aug 19, 2020 Onc MED Follow-Up/Prog Note Chief Complaint: Metastatic colon cancer History of Present Illness: Mrs. Lobato is a 49-year-old female with who was diagnosed with colorectal cancer per colonoscopy done on March 08, 2020 at [facility] in [facility]. She reports he went to emergency room with 6-week history of progressive worsening of right upper quadrant pain and nausea along with history of off and on bleeding per rectum over 6-month duration. She states she thought her right upper quadrant pain was due to gallbladder. She underwent CT scan of chest abdomen pelvis on March 06, 2020 which showed asymmetric thickening of the wall of rectosigmoid colon and low to intermediate density hepatic masses in the liver a mass within the right lobe measured 5.6 cm in transverse dimension. Pancreas normal, adrenal normal and increased density within the left common femoral vein and left superficial femoral vein. A venous doppler done on March 06, 2020 confirmed left popliteal to common femoral DVT. She was started on Lovenox and later transitioned to Eliquis. Mrs Lobato was diagnosed with metastatic colorectal cancer with liver mets at [facility] on . 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 Mrs Murcia was seen by Dr. Dae Ren, medical oncologist. He recommended systemic chemotherapy with FOLFOX every 2 weeks. However on April 02, 2020, she went to back to [facility] ER with confusion and mental status changes of 1 week duration and MRI scan of the brain was done with a concern for metastatic disease but it did not show any evidence of brain mets but showed multiple areas of embolic and ischemic stroke particular to the right occipital region and bilateral cerebellar region. As there was no neurology coverage, she was transferred to [facility] in [facility]. 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 On April 02, 2020, she underwent embolectomy of basilar artery and patient was discharged home on April 05, 2020 with Lovenox 60 mg twice a day and also concluded Eliquis failure. Mrs Moreland was seen by Dr. Evelio Ren and she was started on systemic chemotherapy with FOLFOX and second cycle of chemotherapy was completed on April 12, 2020. Due to her convenience as patient lives in [place], [place], she has decided to switch her care to [facility]. She is completed 5 cycles of FOLFOX. She is required growth factor support for chemotherapy-induced neutropenia. She continues with Lovenox. Follow-up CT PET scan done after six cycles of modified FOLFOX, on June 28, 2020 showed there is a 4.4 x 2.8 cm rectal mass with SUV of 13.6 with presacral perirectal nodes are subcentimeter in size and too small to characterize. Multifocal hepatic metastatic disease is present most lesions do not demonstrate activity greater than that of hepatic background but several lesions are FDG positive the index lesion in the posterior segment four measuring 3.7 x 4.0 cm with SUV of 4.7 compared to 5.[address] scan done in February 2020, with significant central necrosis. She continues with FOLFOX with growth factor support. She received Injectafer on July 01, 2020 for oral iron intolerant documented iron deficiency. Her iron saturation on June 02, 2020 was 6.5% her ferritin was 66 and iron level was 23. Her hemoglobin at that time was 9.3. Her second dose of Injectafer had been delayed due to increment weather. She received her second dose on 07/23/2020. Ms. Lobato is here today for follow-up. She is due for cycle 10 FOLFOX. She states overall she feels really good. She has had no fever or chills. She denies any mouth sores, sore throat or difficulty swallowing. 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 She states her appetite is good. Her energy is good. She does have neuropathy in her fingers and toes but states that stable and last just for couple days after treatment and then is gone. She states it is not worsening. She denies any diarrhea or constipation. She continues to have some bruising on her abdomen due to the Lovenox injections as she continues that for her DVT of the right vertebral artery at the V4 segment just proximal to the basilar artery origin. There was occlusive thrombus in the tip of the basilar artery with extension into the bilateral P1 segments and also occlusion of the left superior cerebellar artery. She did have embolectomy of the basilar artery. She has remained on Lovenox 60 mg twice daily since that discharge on April 02, 2020. She denies any other bruising. She denies any shortness of breath orthopnea. She has had amenorrhea for she thinks over a year. An FSH was drawn on her every 2020 it was 35.2 indicating postmenopausal status. Her ECOG is 1. Past Medical History: Anxiety Depression Stroke Dvt in 2019 Past Surgical History: Ear surgery Portacath placement Embolectomy of basilar artery occulsion-[place], [place] in 2019 Biopsy of rectosigmoid colon-Dr Catalan/[facility] in 2019 Colonoscopy in 2019 Allergies: Bactrim, bananas lemon/[place] Sea food-omega, coffee, fish, garlic, milk , Penicillins, angel, and salmon. Medications: Benadryl Allergy 1 Tablet (of 25 mg) Oral daily PRN busPIRone HCl 1 Tablet (of 10 mg) Oral daily Citalopram Hydrobromide 1 Tablet (of 20 mg) Oral daily Enoxaparin Sodium 60 Units (of 300 mg/3mL) Injection b.i.d. Montelukast Sodium 1 Tablet (of 10 mg) Oral daily PRN Probiotic 1 Capsule Oral daily Promethazine HCl 1 Tablet (of 25 mg) Oral daily PRN Zofran 1 Tablet (of 8 mg) Oral PRN Family History: Social History: Ms. Lobato is . Ms. Lobato no longer smokes. She has no history of drinking. Review Of Symptoms: Constitutional Denies fevers, chills, night sweats, excessive fatigue or weight loss. Has fatigue but recovers with rest. Allergic/Immunologic No reactions. Eyes Denies significant visual changes. No diplopia. No amaurosis. ENMT Denies changes in hearing, sore throat, mouth sores, difficulty or changes in swallowing ability, and/or sinus drainage. Hematologic/Lymphatic Denies easy bruising or bleeding. The patient denies any tender or palpable lymph nodes. Respiratory Denies dyspnea on exertion, chest pain, cough or hemoptysis. Denies orthopnea. Cardiovascular Denies anginal chest pain, palpitations or orthopnea. Gastrointestinal Denies current nausea, vomiting, diarrhea, GI bleeding, or constipation. Denies change in bowel habits and/or stool color, no heartburn or early satiety. Genitourinary (F) No hematuria, hesitancy, incontinence, vaginal bleeding, discharge or other problems with urination. Musculoskeletal Denies joint pain, swelling or redness. No decreased range of motion. Integumentary Denies chronic rashes, inflammation, ulcerations or skin changes. Neurologic Denies headache, blurred vision, and no areas of focal weakness or numbness. Normal gait. No sensory problems. Psychiatric Denies insomnia, depression, neville or mood swings. Vital Signs: Performed on Aug 19, 2020 09:57 Height - 67.00 in Weight - 142.4 lbs (HIGH) BSA - 1.75 sq.m BMI - 22.30 Temperature - 98.2 F (LOW) Pulse - 88 /min Respiration - 17 /min BP - 118/80 mm(hg) O2 Sat - 95 % (LOW) Pain - 0,1 - No physically strenuous activity, but ambulatory and able to carry out light or sedentary work (e.g. office work, light house work). (ECOG) Physical Examination: Constitutional Alert, oriented, no acute distress. Skin pink, warm and dry. Head Normocephalic; atraumatic. Eyes Conjunctivae and sclerae are clear and without icterus. Pupils are reactive and equal. Neck Supple without masses or thyromegaly. No jugular venous distension. Hematologic/Lymphatic No petechiae or purpura. Bruising on abdomen due to Lovenox. Respiratory Lungs are clear to auscultation without rhonchi or wheezing. Cardiovascular Regular rate and rhythm of heart without murmurs,clicks, gallops or rubs. Chest Right subclavian venous access device insertion site is unremarkable. Abdomen Non-tender, non-distended, no masses or ascites. Good bowel sounds noted in all quads. No guarding or rebound tenderness. No pulsatile masses. Scattered mild bruising from Lovenox injections. Back/Spine Non-tender to palpation. Extremities No visible deformities, no cyanosis, clubbing or edema. Musculoskeletal No tenderness or swelling, normal range of motion without obvious weakness. Integumentary No rashes or lesions. Neurologic No sensory or motor deficits, normal cerebellar function, normal gait. Psychiatric Alert and oriented times three. Coherent speech. Verbalizes understanding of our discussions today. Laboratory:Test performed on Aug 19, 2020 08:24 Sodium 138 mmol/L Potassium 4.0 mmol/L Chloride 105 mmol/L CO2 23 mmol/L Anion Gap 14.0 BUN 10 mg/dL Creatinine 0.6 mg/dL Cr Clearance (Est) 108.1200 mL/min eGFR 105.8 mL/min Glucose 69 mg/dL Osmolality - Calculated 283 mOsm/kg Calcium 8.2 mg/dL Protein, Total 5.9 g/dL Albumin 3.4 g/dL Globulin 2.5 g/dL Bilirubin, Total 0.2 mg/dL ALT (SGPT) 47 U/L AST (SGOT) 42 U/L Alkaline Phosphatase 245 IU/L WBC 10.8 10 3/uL RBC 3.45 10 6/uL HGB 11.4 g/dL HCT 35.3 % MCV 102.3 fL MCH 33.0 pg MCHC 32.3 g/dL RDW 19.1 % Platelet Count 174 10 3/cmm MPV 10.9 fL Neutrophils 7.61 10 3/uL Lymphocytes 1.6 10 3/uL Monocytes 0.9 10 3/uL Eosinophils 0.3 10 3/uL Basophils 0.1 10 3/uL Neutrophil % 70.3 % Lymphocyte % 15.0 % Monocyte % 8.5 % Eosinophil % 3.0 % Basophils % 0.8 % NRBC % 0 % CEA 38.4 ng/mL Test performed on Jul 23, 2020 07:52 FSH 35.2 mIU/mL Test performed on Jun 02, 2020 09:21 Ferritin 66 ng/mL Iron 23 mcg/dL Iron Binding Capacity (TIBC) 352 mcg/dl % Iron Saturation 6.5 % UIBC 329 mcg/dL Test performed on May 13, 2020 09:13 BUN/Creatinine Ratio 10 Absolute Value A/G Ratio 1.9 Absolute Value Impression: Metastatic colorectal cancer per colonoscopy done on March 08, 2020 confirmed adenocarcinoma and molecular profiling showed MMR proficient tumor, negative for KRAS and NRAS mutation but positive for BRAF V[address] scan of chest abdomen pelvis done on March 06, 2020 showed numerous low to intermediate density hepatic masses, mass within the right lobe measured 5.6 cm in transverse dimension. Nonspecific decreased attenuation noted in the periphery of spleen. And asymmetric thickening of the wall of the rectosigmoid colon. A lymph node near the segment of colon appears abnormally enlarged measuring 8.4 mm There is a fusion of T12 and L1 level. Left leg DVT confirmed by venous Doppler study done on March 06, 2020, initially treated with Eliquis, then patient was admitted [facility] on April 02, 2020, for which she was transferred to [facility] in [facility] with mental status confusion due to multiple area of embolic and ischemic stroke seen in the right occipital region and bilateral cerebellar region per MRI scan done and on April 02, 2020 she underwent embolectomy of basilar artery. And was started on Lovenox 60 mg subcu twice daily and concluded Eliquis failure. Anxiety/depression Started on systemic chemotherapy with FOLFOX by Dr. Evelio Ren in [place] and completed a second cycle on April 12, 2020. She has now completed a total of 9 cycles of the FOLFOX and she is tolerating it well. She did require dose reduction with cycle 5 due to worsening peripheral neuropathy, increased diarrhea and mouth sores. Since that reduction, she has tolerated treatment well. She had follow-up PET/CT on June 28, 2020 which reported her rectal mass at 4.8 x 2.8 cm with an SUV of 13.6. There were presacral and perirectal nodes and subcentimeter size and too small to characterize. Multifocal metastatic disease was present but most lesions did not demonstrate activity greater than that of hepatic background but several lesions were FDG positive. An index lesion in the posterior segment 6 measures 3.7 x 4.0 cm with an aphthous SUV of 4.7 and significant central necrosis. It is noted that the breast parenchyma and axillary lymph node uptake bilaterally was unremarkable. She reports she has never had a mammogram. There was reactive bone marrow uptake presumed from recent Neulasta therapy. She continues with modified FOLFOX. Plan: PROBLEMS ADDRESSED TODAY 1. Metastatic colorectal cancer: A. Proceed with cycle 10 FOLFOX (at same dosing as cycle 9) and continue Neulasta support for chemotherapy-induced neutropenia. B. Supportive care as needed. C. Today's labs were reviewed in detail and discussed with Ms. Lobato and a copy was given to her. WBC 10.8, hemoglobin 11.4, platelets 274,000 ANC is 7610. Potassium 4.0 creatinine 0.6 ALT is 47 AST is 42 alk phos 245 (Neulasta administration) CEA today is 38.4. It was 65.5 on June 02, 2020. Her CEA was 187 on April 28, 2020. 2. Anemia: A. She was found to be iron deficient with her labs on June 02, 2019 her iron sat was 6.5% her iron level was 23 and her ferritin was 66 TIBC was 352. She was unable to tolerate oral iron due to GI upset. B. Due to the intolerance of the oral iron she was offered parenteral iron replacement with Injectafer. She began her first dose on July 01, 2020. Her second dose had been delayed due to increment weather. The second dose was administered on July 23, 2020. Her hemoglobin is showing improvement today at 11.4. Her iron studies have not been repeated yet. I will request those for her next visit. 3. Thrombosis: A. DVT of the left popliteal to common femoral on March 06, 2020. She was started on Lovenox and transition to Eliquis B. 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 She resumed the Lovenox and was considered in Eliquis failure due to the recurrent clot. C. She continues with Lovenox 60 mg subcutaneous twice daily. 4. Amenorrhea A. FSH level from July 23, 2020 is 35.2 which indicates menopause. 5. Follow-up plan: A. We will plan to see her back in 2 weeks with CBC, CMP and CEA. She will be due for cycle 11 FOLFOX at that time. B. Mrs. Lobato was instructed to contact us in interim should questions or problems arise. Signed By: Aman Sargent-, [facility] Lucian Carson MD <<Signature on File>>
== END 2020-08-27 23:59 | disposition home or self-care (01) ==
LOC: ONCMED 05:39
PROVIDERS: Nurse Practitioner; PCP Nurse Practitioner Family; Visit Provider Internal Medicine Hematology & Oncology
DX: Z51.11 Encounter for antineoplastic chemotherapy (principal); C19 Malignant neoplasm of rectosigmoid junction; C78.7 Secondary malignant neoplasm of liver and intrahepatic bile duct; D70.1 Agranulocytosis secondary to cancer chemotherapy; T45.1X5A Adverse effect of antineoplastic and immunosuppressive drugs, initial encounter; D50.9 Iron deficiency anemia, unspecified; N91.2 Amenorrhea, unspecified; Z79.899 Other long term (current) drug therapy; Z86.718 Personal history of other venous thrombosis and embolism; Z79.01 Long term (current) use of anticoagulants; Z78.0 Asymptomatic menopausal state; Z86.73 Personal history of transient ischemic attack (TIA), and cerebral infarction without residual deficits
CPT/HCPCS: 80053; 82378; 85025; 96367; 96368; 96372; 96375; 96413; 96415; 96416; 96523; 99214; J0640; J1100; J1453; J2469; J2505; J3490; J9190; J9263

== ENCOUNTER 2020-09-18 06:00 | Outpatient (RCR) | payer OTHER, SELFPAY ==
[2020-09-02 09:25] LABS: Basophils # 0.1 10^3/uL (0.0-0.1); Basophils % 0.6 %; Eosinophils # 0.3 10^3/uL (0.0-0.8); Eosinophils % 2.8 %; Hematocrit 39.1 % (37.0-47.0); Hemoglobin 12.7 g/dL (11.5-15.3); Lymphocytes # 1.8 10^3/uL (0.8-4.8); Lymphocytes % 16.6 %; Mean Corpuscular HGB Conc 32.5 g/dL (30.0-36.0); Mean Corpuscular Hemoglobin 33.1 pg (28.0-34.0); Mean Corpuscular Volume 101.8 fL (81-99); Mean Platelet Volume 11.1 fL (7.4-10.4); Monocytes % 9.5 %; Neutrophils # 7.17 10^3/uL (1.8-7.7); Neutrophils % 68.1 %; Nucleated Red Blood Cells % 0 %; Platelet Count 194 10^3/cmm (130-400); Red Blood Count 3.84 10^6/uL (4.1-5.3); White Blood Count 10.5 10^3/uL (4.0-10.0)
[2020-09-02 09:54] LABS: Carcinoembryonic Antigen 33.9 ng/mL (0.0-4.7)
[2020-09-02 10:13] LABS: Alanine Aminotransferase 35 U/L (0-33); Alkaline Phosphatase 246 IU/L (35-105); Ferritin 424 ng/mL (15-150); Glomerular Filtration Rate 88.6 mL/min (90-130); Iron 119 ug/dL (37-145); Osmolality Calculated 288 mOsm/kg (285-295); Percent Saturation 41.1 % (20-50); Sodium 140 mmol/L (136-145); Total Iron Binding Capacity 289 mcg/dl; Unsaturated Iron Binding 170 ug/dL (112-347)
[2020-09-02 10:24] LABS: Potassium 4.1 mmol/L (3.5-5.1)
[2020-09-02 10:25] LABS: Albumin Level 3.6 g/dL (3.5-5.2); Anion Gap 15.1 (5-19); Aspartate Amino Transferase 32 U/L (0-32); Blood Urea Nitrogen 10 mg/dL (6-20); Calcium 8.8 mg/dL (8.5-10.5); Carbon Dioxide 25 mmol/L (22-29); Chloride 104 mmol/L (98-107); Globulin 2.4 g/dL (1.3-4.6); Glucose 84 mg/dL (65-115); Magnesium 2.1 mg/dL (1.7-2.3); Total Bilirubin 0.2 mg/dL (0.15-1.2)
[2020-09-02] MEDS: famotidine 20 mg/2 mL INJ IVP (11:38)
[2020-09-02] MEDS: dextrose 5% 250 ML 75 ML IV (11:40)
[2020-09-02] MEDS: palonosetron 0.25 mg/5 mL SDV IVP (11:57)
[2020-09-02] MEDS: fosaprepitant 150 MG in sodium chloride 0.9% 150 ML 300 MG IV (11:57)
[2020-09-02] MEDS: acetaminophen 325 mg Tablet 650 MG PO (12:00)
[2020-09-02] MEDS: LORazepam 0.5 mg Tablet 1 MG PO (13:20)
[2020-09-02] MEDS: diphenhydrAMINE 50 mg/mL SDV 1mL 25 MG IVP (13:20)
--- NOTE | 2020-09-13 11:07 | ONC FU_ITS ---
[facility] Patient Note Patient: Ailyn Lobato Unit #: [id number]: 1970 Dictated By: Aman SargentDate of Visit: Sep 02, 2020 Onc MED Follow-Up/Prog Note Chief Complaint: Metastatic colon cancer History of Present Illness: Mrs. Lobato is a 49-year-old female with who was diagnosed with colorectal cancer per colonoscopy done on March 08, 2020 at [facility] in [facility]. She reports he went to emergency room with 6-week history of progressive worsening of right upper quadrant pain and nausea along with history of off and on bleeding per rectum over 6-month duration. She states she thought her right upper quadrant pain was due to gallbladder. She underwent CT scan of chest abdomen pelvis on March 06, 2020 which showed asymmetric thickening of the wall of rectosigmoid colon and low to intermediate density hepatic masses in the liver a mass within the right lobe measured 5.6 cm in transverse dimension. Pancreas normal, adrenal normal and increased density within the left common femoral vein and left superficial femoral vein. A venous doppler done on March 06, 2020 confirmed left popliteal to common femoral DVT. She was started on Lovenox and later transitioned to Eliquis. Mrs Lobato was diagnosed with metastatic colorectal cancer with liver mets at [facility] on . 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 Mrs Murcia was seen by Dr. Dae Ren, medical oncologist. He recommended systemic chemotherapy with FOLFOX every 2 weeks. However on April 02, 2020, she went to back to [facility] ER with confusion and mental status changes of 1 week duration and MRI scan of the brain was done with a concern for metastatic disease but it did not show any evidence of brain mets but showed multiple areas of embolic and ischemic stroke particular to the right occipital region and bilateral cerebellar region. As there was no neurology coverage, she was transferred to [facility] in [facility]. 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 On April 02, 2020, she underwent embolectomy of basilar artery and patient was discharged home on April 05, 2020 with Lovenox 60 mg twice a day and also concluded Eliquis failure. Mrs Moreland was seen by Dr. Evelio Ren and she was started on systemic chemotherapy with FOLFOX and second cycle of chemotherapy was completed on April 12, 2020. Due to her convenience as patient lives in [place], [place], she has decided to switch her care to [place]. She is completed 5 cycles of FOLFOX. She is required growth factor support for chemotherapy-induced neutropenia. She continues with Lovenox. Follow-up CT PET scan done after six cycles of modified FOLFOX, on June 28, 2020 showed there is a 4.4 x 2.8 cm rectal mass with SUV of 13.6 with presacral perirectal nodes are subcentimeter in size and too small to characterize. Multifocal hepatic metastatic disease is present most lesions do not demonstrate activity greater than that of hepatic background but several lesions are FDG positive the index lesion in the posterior segment four measuring 3.7 x 4.0 cm with SUV of 4.7 compared to 5.[address] scan done in February 2020, with significant central necrosis. She continues with FOLFOX with growth factor support. She received Injectafer on July 01, 2020 for oral iron intolerant documented iron deficiency. Her iron saturation on June 02, 2020 was 6.5% her ferritin was 66 and iron level was 23. Her hemoglobin at that time was 9.3. Her second dose of Injectafer had been delayed due to increment weather. She received her second dose on 07/23/2020. Ms. Lobato is here today for follow-up. She is due for cycle 11 FOLFOX. She states overall she continues to feel really good. She denies any fever or chills. She denies any mouth sores, sore throat or difficulty swallowing. 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 She has no new concerns today. She states her appetite is good. Her energy is good. She does have neuropathy in her fingers and toes but states that stable and last just for couple days after treatment and then is gone. She states it is not worsening. She denies any diarrhea or constipation. She continues to have some bruising on her abdomen due to the Lovenox injections as she continues that for her DVT of the right vertebral artery at the V4 segment just proximal to the basilar artery origin. There was occlusive thrombus in the tip of the basilar artery with extension into the bilateral P1 segments and also occlusion of the left superior cerebellar artery. She did have embolectomy of the basilar artery. She has remained on Lovenox 60 mg twice daily since that discharge on April 02, 2020. She denies any other bruising. She denies any shortness of breath orthopnea. She has had amenorrhea for she thinks over a year. An FSH was drawn on her every 2020 it was 35.2 indicating postmenopausal status. Her ECOG is 1. Her CEA continues to drop and on August 19, 2020 it was 38.4 compared to 56 on July 01, 2020. Past Medical History: Anxiety Depression Stroke Dvt in 2019 Past Surgical History: Ear surgery Portacath placement Embolectomy of basilar artery occulsion-[place], [place] in 2019 Biopsy of rectosigmoid colon-Dr Catalan/[facility] in 2019 Colonoscopy in 2019 Allergies: Bactrim, bananas lemon/naknek Sea food-omega, coffee, fish, garlic, milk , Penicillins, angel, and salmon. Medications: Benadryl Allergy 1 Tablet (of 25 mg) Oral daily PRN busPIRone HCl 1 Tablet (of 10 mg) Oral daily Citalopram Hydrobromide 1 Tablet (of 20 mg) Oral daily Enoxaparin Sodium 60 Units (of 300 mg/3mL) Injection b.i.d. Montelukast Sodium 1 Tablet (of 10 mg) Oral daily PRN Probiotic 1 Capsule Oral daily Promethazine HCl 1 Tablet (of 25 mg) Oral daily PRN Zofran 1 Tablet (of 8 mg) Oral PRN Family History: Social History: Ms. Lobato is . Ms. Lobato no longer smokes. She has no history of drinking. Review Of Symptoms: Vital Signs: Performed on Sep 02, 2020 17:20 Height - 67.00 in Temperature - 98.8 F Pulse - 95 /min Respiration - 18 /min BP - 117/66 mm(hg) O2 Sat - 100 % Performed on Sep 02, 2020 10:51 Height - 67.00 in Weight - 141.6 lbs (LOW) BSA - 1.75 sq.m BMI - 22.18 Temperature - 97.6 F (LOW) Pulse - 102 /min (HIGH) Respiration - 18 /min BP - 116/74 mm(hg) O2 Sat - 97 % Pain - 0,1 - No physically strenuous activity, but ambulatory and able to carry out light or sedentary work (e.g. office work, light house work). (ECOG) Physical Examination: Constitutional Alert, oriented, no acute distress. Skin pink, warm and dry. Head Normocephalic; atraumatic. Eyes Conjunctivae and sclerae are clear and without icterus. Pupils are reactive and equal. Neck Supple without masses or thyromegaly. No jugular venous distension. Hematologic/Lymphatic No petechiae or purpura. Bruising on abdomen due to Lovenox. Respiratory Lungs are clear to auscultation without rhonchi or wheezing. Cardiovascular Regular rate and rhythm of heart without murmurs,clicks, gallops or rubs. Chest Right subclavian venous access device insertion site is unremarkable. Abdomen Non-tender, non-distended, no masses or ascites. Good bowel sounds noted in all quads. No guarding or rebound tenderness. No pulsatile masses. Scattered mild bruising from Lovenox injections. Back/Spine Non-tender to palpation. Extremities No visible deformities, no cyanosis, clubbing or edema. Musculoskeletal No tenderness or swelling, normal range of motion without obvious weakness. Integumentary No rashes or lesions. Neurologic No sensory or motor deficits, normal cerebellar function, normal gait. Psychiatric Alert and oriented times three. Coherent speech. Verbalizes understanding of our discussions today. Laboratory:Test performed on Sep 02, 2020 09:00 Ferritin 424 ng/mL Iron 119 mcg/dL Magnesium 2.1 mg/dL Sodium 140 mmol/L Iron Binding Capacity (TIBC) 289 mcg/dl Potassium 4.1 mmol/L % Iron Saturation 41.1 % Chloride 104 mmol/L CO2 25 mmol/L UIBC 170 mcg/dL Anion Gap 15.1 BUN 10 mg/dL Creatinine 0.7 mg/dL Cr Clearance (Est) 92.6700 mL/min eGFR 88.6 mL/min Glucose 84 mg/dL Osmolality - Calculated 288 mOsm/kg Calcium 8.8 mg/dL Protein, Total 6.0 g/dL Albumin 3.6 g/dL Globulin 2.4 g/dL Bilirubin, Total 0.2 mg/dL ALT (SGPT) 35 U/L AST (SGOT) 32 U/L Alkaline Phosphatase 246 IU/L WBC 10.5 10 3/uL RBC 3.84 10 6/uL HGB 12.7 g/dL HCT 39.1 % MCV 101.8 fL MCH 33.1 pg MCHC 32.5 g/dL RDW 18.0 % Platelet Count 194 10 3/cmm MPV 11.1 fL Neutrophils 7.17 10 3/uL Lymphocytes 1.8 10 3/uL Monocytes 1.0 10 3/uL Eosinophils 0.3 10 3/uL Basophils 0.1 10 3/uL Neutrophil % 68.1 % Lymphocyte % 16.6 % Monocyte % 9.5 % Eosinophil % 2.8 % Basophils % 0.6 % NRBC % 0 % CEA 33.9 ng/mL Test performed on Jul 23, 2020 07:52 FSH 35.2 mIU/mL Test performed on May 13, 2020 09:13 BUN/Creatinine Ratio 10 Absolute Value A/G Ratio 1.9 Absolute Value Impression: Metastatic colorectal cancer per colonoscopy done on March 08, 2020 confirmed adenocarcinoma and molecular profiling showed MMR proficient tumor, negative for KRAS and NRAS mutation but positive for BRAF V[address] scan of chest abdomen pelvis done on March 06, 2020 showed numerous low to intermediate density hepatic masses, mass within the right lobe measured 5.6 cm in transverse dimension. Nonspecific decreased attenuation noted in the periphery of spleen. And asymmetric thickening of the wall of the rectosigmoid colon. A lymph node near the segment of colon appears abnormally enlarged measuring 8.4 mm There is a fusion of T12 and L1 level. Left leg DVT confirmed by venous Doppler study done on March 06, 2020, initially treated with Eliquis, then patient was admitted [facility] on April 02, 2020, for which she was transferred to [facility] in [facility] with mental status confusion due to multiple area of embolic and ischemic stroke seen in the right occipital region and bilateral cerebellar region per MRI scan done and on April 02, 2020 she underwent embolectomy of basilar artery. And was started on Lovenox 60 mg subcu twice daily and concluded Eliquis failure. Anxiety/depression Started on systemic chemotherapy with FOLFOX by Dr. Evelio Ren in [place] and completed a second cycle on April 12, 2020. She has now completed a total of 9 cycles of the FOLFOX and she is tolerating it well. She did require dose reduction with cycle 5 due to worsening peripheral neuropathy, increased diarrhea and mouth sores. Since that reduction, she has tolerated treatment well. She had follow-up PET/CT on June 28, 2020 which reported her rectal mass at 4.8 x 2.8 cm with an SUV of 13.6. There were presacral and perirectal nodes and subcentimeter size and too small to characterize. Multifocal metastatic disease was present but most lesions did not demonstrate activity greater than that of hepatic background but several lesions were FDG positive. An index lesion in the posterior segment 6 measures 3.7 x 4.0 cm with an aphthous SUV of 4.7 and significant central necrosis. It is noted that the breast parenchyma and axillary lymph node uptake bilaterally was unremarkable. She reports she has never had a mammogram. There was reactive bone marrow uptake presumed from recent Neulasta therapy. She continues with modified FOLFOX. Plan: PROBLEMS ADDRESSED TODAY 1. Metastatic colorectal cancer: A. Proceed with cycle 11 FOLFOX (at same dosing as cycle 9) and continue Neulasta support for chemotherapy-induced neutropenia. B. Supportive care as needed. C. Today's labs were reviewed in detail and discussed with Ms. Lobato and a copy was given to her. WBC 10.5, hemoglobin 12.7, platelets 194,000 ANC is 7170. Potassium 4.1 creatinine 0.7 total bilirubin 0.2 ALT is 35 AST is 32 alk phos is 246. Her magnesium is 2.1 iron is 119 and iron sat is 41.1%. Her CEA today is 33.9. Her CEA was 187 on April 28, 2020. 2. Anemia: A. She was found to be iron deficient with her labs on June 02, 2019 her iron sat was 6.5% her iron level was 23 and her ferritin was 66 TIBC was 352. She was unable to tolerate oral iron due to GI upset. B. Due to the intolerance of the oral iron, she was offered parenteral iron replacement with Injectafer. She began her first dose on July 01, 2020. Her second dose had been delayed due to increment weather. The second dose was administered on July 23, 2020. Her hemoglobin today is 12.7. Her iron has also recovered with an iron saturation of 41.1% ferritin is 424 and iron level is 119. 3. Thrombosis: A. DVT of the left popliteal to common femoral on March 06, 2020. She was started on Lovenox and transition to Eliquis B. 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 She resumed the Lovenox and was considered in Eliquis failure due to the recurrent clot. C. She continues with Lovenox 60 mg subcutaneous twice daily. 4. Amenorrhea A. FSH level from July 23, 2020 is 35.2 which indicates menopause. 5. Follow-up plan: A. We will plan to see her back in 2 weeks with CBC, CMP and CEA. She will be due for cycle 12 FOLFOX at that time. B. After cycle 12 we will request follow-up PET/CT gene to determine response. There may be a possibility of considering surgery at a tertiary care center if she has had dramatic improvement of the hepatic lesions. The last PET/CT from June 28, 2020 reported a 4.4 x 2.8 rectal mass with an SUV of 13.6. There were multifocal hepatic metastatic disease present most lesions did not demonstrate activity greater than that of the hepatic background but several lesions were FDG positive. An index lesion in the posterior segment measures 3.7 x 4.0 cm with an SUV of 4.7. C. Mrs. Lobato was instructed to contact us in interim should questions or problems arise. Signed By: Aman Sargent-, AOCNP Dino Carson MD<<Signature on File>>
[2020-09-16 08:40] LABS: Basophils # 0.1 10^3/uL (0.0-0.1); Basophils % 0.6 %; Eosinophils # 0.3 10^3/uL (0.0-0.8); Eosinophils % 3.5 %; Hematocrit 38.5 % (37.0-47.0); Hemoglobin 12.5 g/dL (11.5-15.3); Lymphocytes # 1.8 10^3/uL (0.8-4.8); Lymphocytes % 18.7 %; Mean Corpuscular HGB Conc 32.5 g/dL (30.0-36.0); Mean Corpuscular Hemoglobin 33.6 pg (28.0-34.0); Mean Corpuscular Volume 103.5 fL (81-99); Mean Platelet Volume 10.8 fL (7.4-10.4); Monocytes # 0.9 10^3/uL (0.2-0.9); Monocytes % 9.7 %; Neutrophils # 6.32 10^3/uL (1.8-7.7); Neutrophils % 65.8 %; Nucleated Red Blood Cells % 0 %; Platelet Count 210 10^3/cmm (130-400); Red Blood Count 3.72 10^6/uL (4.1-5.3); Red Cell Distribution Width 17.2 % (12.1-15.1); White Blood Count 9.6 10^3/uL (4.0-10.0)
[2020-09-16 09:08] LABS: Carcinoembryonic Antigen 23.7 ng/mL (0.0-4.7)
[2020-09-16 09:20] LABS: Alanine Aminotransferase 53 U/L (0-33); Albumin Level 3.4 g/dL (3.5-5.2); Alkaline Phosphatase 254 IU/L (35-105); Anion Gap 13.7 (5-19); Aspartate Amino Transferase 48 U/L (0-32); Blood Urea Nitrogen 7 mg/dL (6-20); Calcium 8.1 mg/dL (8.5-10.5); Carbon Dioxide 23 mmol/L (22-29); Chloride 102 mmol/L (98-107); Globulin 2.4 g/dL (1.3-4.6); Glomerular Filtration Rate 105.8 mL/min (90-130); Glucose 132 mg/dL (65-115); Osmolality Calculated 280 mOsm/kg (285-295); Potassium 3.7 mmol/L (3.5-5.1); Sodium 135 mmol/L (136-145); Total Bilirubin 0.2 mg/dL (0.15-1.2); Total Protein 5.8 g/dL (6.6-8.7)
[2020-09-16] MEDS: dextrose 5% 250 ML 75 ML IV (10:34)
[2020-09-16] MEDS: palonosetron 0.25 mg/5 mL SDV IV (10:34)
[2020-09-16] MEDS: famotidine 20 mg/2 mL INJ IVP (10:35)
[2020-09-16] MEDS: diphenhydrAMINE 50 mg/mL SDV 1mL 25 MG IV (10:36)
[2020-09-16] MEDS: OLANZapine 10 mg TABLET PO (10:37)
[2020-09-16] MEDS: fosaprepitant 150 MG in sodium chloride 0.9% 150 ML 300 MG IV (10:38)
[2020-09-16] MEDS: LORazepam 2 mg/mL INJ 1 mL 1 MG IV (12:40)
--- NOTE | 2020-09-28 20:11 | ONC FU_ITS ---
[facility] Patient Note Patient: Ailyn Lobato Unit #: [id number]: 1970 Dictated By: Aman SargentDate of Visit: Sep 16, 2020 Onc MED Follow-Up/Prog Note Chief Complaint: Metastatic colon cancer History of Present Illness: Mrs. Lobato is a 49-year-old female with who was diagnosed with colorectal cancer per colonoscopy done on March 08, 2020 at [facility] in [facility]. She reports he went to emergency room with 6-week history of progressive worsening of right upper quadrant pain and nausea along with history of off and on bleeding per rectum over 6-month duration. She states she thought her right upper quadrant pain was due to gallbladder. She underwent CT scan of chest abdomen pelvis on March 06, 2020 which showed asymmetric thickening of the wall of rectosigmoid colon and low to intermediate density hepatic masses in the liver a mass within the right lobe measured 5.6 cm in transverse dimension. Pancreas normal, adrenal normal and increased density within the left common femoral vein and left superficial femoral vein. A venous doppler done on March 06, 2020 confirmed left popliteal to common femoral DVT. She was started on Lovenox and later transitioned to Eliquis. Mrs Lobato was diagnosed with metastatic colorectal cancer with liver mets at [facility] on . 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 Mrs Murcia was seen by Dr. Dae Ren, medical oncologist. He recommended systemic chemotherapy with FOLFOX every 2 weeks. However on April 02, 2020, she went to back to [facility] ER with confusion and mental status changes of 1 week duration and MRI scan of the brain was done with a concern for metastatic disease but it did not show any evidence of brain mets but showed multiple areas of embolic and ischemic stroke particular to the right occipital region and bilateral cerebellar region. As there was no neurology coverage, she was transferred to [facility] in [facility]. 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 On April 02, 2020, she underwent embolectomy of basilar artery and patient was discharged home on April 05, 2020 with Lovenox 60 mg twice a day and also concluded Eliquis failure. Mrs Moreland was seen by Dr. Evelio Ren and she was started on systemic chemotherapy with FOLFOX and second cycle of chemotherapy was completed on April 12, 2020. Due to her convenience as patient lives in [place], [place], she has decided to switch her care to [place]. She is completed 5 cycles of FOLFOX. She is required growth factor support for chemotherapy-induced neutropenia. She continues with Lovenox. Follow-up CT PET scan done after six cycles of modified FOLFOX, on June 28, 2020 showed there is a 4.4 x 2.8 cm rectal mass with SUV of 13.6 with presacral perirectal nodes are subcentimeter in size and too small to characterize. Multifocal hepatic metastatic disease is present most lesions do not demonstrate activity greater than that of hepatic background but several lesions are FDG positive the index lesion in the posterior segment four measuring 3.7 x 4.0 cm with SUV of 4.7 compared to 5.[address] scan done in February 2020, with significant central necrosis. She continues with FOLFOX with growth factor support. She received Injectafer on July 01, 2020 for oral iron intolerant documented iron deficiency. Her iron saturation on June 02, 2020 was 6.5% her ferritin was 66 and iron level was 23. Her hemoglobin at that time was 9.3. Her second dose of Injectafer had been delayed due to increment weather. She received her second dose on 07/23/2020. Ms. Lobato is here today for follow-up. She is due for cycle 12 FOLFOX. She states overall she continues to feel really good. She denies any fever or chills. She denies any mouth sores, sore throat or difficulty swallowing. 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 She has no new concerns today. She states her appetite is good. Her energy is good. She does have neuropathy in her fingers and toes but states that stable and last just for couple days after treatment and then is gone. She states it is not worsening. She denies any diarrhea or constipation. She continues to have some bruising on her abdomen due to the Lovenox injections as she continues that for her DVT of the right vertebral artery at the V4 segment just proximal to the basilar artery origin. There was occlusive thrombus in the tip of the basilar artery with extension into the bilateral P1 segments and also occlusion of the left superior cerebellar artery. She did have embolectomy of the basilar artery. She has remained on Lovenox 60 mg twice daily since that discharge on April 02, 2020. She denies any other bruising. She denies any shortness of breath orthopnea. She has had amenorrhea for she thinks over a year. An FSH was drawn on her every 2020 it was 35.2 indicating postmenopausal status. Her ECOG is 1. Her CEA continues to drop and on August 19, 2020 it was 38.4 compared to 56 on July 01, 2020. Past Medical History: Anxiety Depression Stroke Dvt in 2019 Past Surgical History: Ear surgery Portacath placement Embolectomy of basilar artery occulsion-[place], [place] in 2019 Biopsy of rectosigmoid colon-Dr Catalan/[facility] in 2019 Colonoscopy in 2019 Allergies: Bactrim, bananas lemon/hopi Sea food-omega, coffee, fish, garlic, milk , Penicillins, angel, and salmon. Medications: Benadryl Allergy 1 Tablet (of 25 mg) Oral daily PRN busPIRone HCl 1 Tablet (of 10 mg) Oral daily Citalopram Hydrobromide 1 Tablet (of 20 mg) Oral daily Enoxaparin Sodium 60 Units (of 300 mg/3mL) Injection b.i.d. Montelukast Sodium 1 Tablet (of 10 mg) Oral daily PRN Probiotic 1 Capsule Oral daily Promethazine HCl 1 Tablet (of 25 mg) Oral daily PRN Zofran 1 Tablet (of 8 mg) Oral PRN Family History: Social History: Ms. Lobato is . Ms. Lobato no longer smokes. She has no history of drinking. Review Of Symptoms: see above Vital Signs: Performed on Sep 16, 2020 09:47 Height - 67.00 in Weight - 136.4 lbs (LOW) BSA - 1.72 sq.m BMI - 21.36 Temperature - 98.3 F (LOW) Pulse - 111 /min (HIGH) Respiration - 18 /min BP - 114/76 mm(hg) O2 Sat - 97 % Pain - 0 Fatigue - 0,1 - No physically strenuous activity, but ambulatory and able to carry out light or sedentary work (e.g. office work, light house work). (ECOG) Physical Examination: Constitutional Alert, oriented, no acute distress. Skin pink, warm and dry. Head Normocephalic; atraumatic. Eyes Conjunctivae and sclerae are clear and without icterus. Pupils are reactive and equal. Neck Supple without masses or thyromegaly. No jugular venous distension. Hematologic/Lymphatic No petechiae or purpura. Bruising on abdomen due to Lovenox. Respiratory Lungs are clear to auscultation without rhonchi or wheezing. Cardiovascular Regular rate and rhythm of heart without murmurs,clicks, gallops or rubs. Chest Right subclavian venous access device insertion site is unremarkable. Abdomen Non-tender, non-distended, no masses or ascites. Good bowel sounds noted in all quads. No guarding or rebound tenderness. No pulsatile masses. Scattered mild bruising from Lovenox injections. Back/Spine Non-tender to palpation. Extremities No visible deformities, no cyanosis, clubbing or edema. Musculoskeletal No tenderness or swelling, normal range of motion without obvious weakness. Integumentary No rashes or lesions. Neurologic No sensory or motor deficits, normal cerebellar function, normal gait. Psychiatric Alert and oriented times three. Coherent speech. Verbalizes understanding of our discussions today. Laboratory:Test performed on Sep 16, 2020 08:19 Sodium 135 mmol/L Potassium 3.7 mmol/L Chloride 102 mmol/L CO2 23 mmol/L Anion Gap 13.7 BUN 7 mg/dL Creatinine 0.6 mg/dL Cr Clearance (Est) 108.1200 mL/min eGFR 105.8 mL/min Glucose 132 mg/dL Osmolality - Calculated 280 mOsm/kg Calcium 8.1 mg/dL Protein, Total 5.8 g/dL Albumin 3.4 g/dL Globulin 2.4 g/dL Bilirubin, Total 0.2 mg/dL ALT (SGPT) 53 U/L AST (SGOT) 48 U/L Alkaline Phosphatase 254 IU/L WBC 9.6 10 3/uL RBC 3.72 10 6/uL HGB 12.5 g/dL HCT 38.5 % MCV 103.5 fL MCH 33.6 pg MCHC 32.5 g/dL RDW 17.2 % Platelet Count 210 10 3/cmm MPV 10.8 fL Neutrophils 6.32 10 3/uL Lymphocytes 1.8 10 3/uL Monocytes 0.9 10 3/uL Eosinophils 0.3 10 3/uL Basophils 0.1 10 3/uL Neutrophil % 65.8 % Lymphocyte % 18.7 % Monocyte % 9.7 % Eosinophil % 3.5 % Basophils % 0.6 % NRBC % 0 % CEA 23.7 ng/mL Test performed on Sep 02, 2020 09:00 Ferritin 424 ng/mL Iron 119 mcg/dL Magnesium 2.1 mg/dL Iron Binding Capacity (TIBC) 289 mcg/dl % Iron Saturation 41.1 % UIBC 170 mcg/dL Test performed on Jul 23, 2020 07:52 FSH 35.2 mIU/mL Impression: Metastatic colorectal cancer per colonoscopy done on March 08, 2020 confirmed adenocarcinoma and molecular profiling showed MMR proficient tumor, negative for KRAS and NRAS mutation but positive for BRAF V[address] scan of chest abdomen pelvis done on March 06, 2020 showed numerous low to intermediate density hepatic masses, mass within the right lobe measured 5.6 cm in transverse dimension. Nonspecific decreased attenuation noted in the periphery of spleen. And asymmetric thickening of the wall of the rectosigmoid colon. A lymph node near the segment of colon appears abnormally enlarged measuring 8.4 mm There is a fusion of T12 and L1 level. Left leg DVT confirmed by venous Doppler study done on March 06, 2020, initially treated with Eliquis, then patient was admitted [facility] on April 02, 2020, for which she was transferred to [facility] in [facility] with mental status confusion due to multiple area of embolic and ischemic stroke seen in the right occipital region and bilateral cerebellar region per MRI scan done and on April 02, 2020 she underwent embolectomy of basilar artery. And was started on Lovenox 60 mg subcu twice daily and concluded Eliquis failure. Anxiety/depression Started on systemic chemotherapy with FOLFOX by Dr. Evelio Ren in [place] and completed a second cycle on April 12, 2020. She has now completed a total of 9 cycles of the FOLFOX and she is tolerating it well. She did require dose reduction with cycle 5 due to worsening peripheral neuropathy, increased diarrhea and mouth sores. Since that reduction, she has tolerated treatment well. She had follow-up PET/CT on June 28, 2020 which reported her rectal mass at 4.8 x 2.8 cm with an SUV of 13.6. There were presacral and perirectal nodes and subcentimeter size and too small to characterize. Multifocal metastatic disease was present but most lesions did not demonstrate activity greater than that of hepatic background but several lesions were FDG positive. An index lesion in the posterior segment 6 measures 3.7 x 4.0 cm with an aphthous SUV of 4.7 and significant central necrosis. It is noted that the breast parenchyma and axillary lymph node uptake bilaterally was unremarkable. She reports she has never had a mammogram. There was reactive bone marrow uptake presumed from recent Neulasta therapy. She continues with modified FOLFOX. Plan: PROBLEMS ADDRESSED TODAY 1. Metastatic colorectal cancer: A. Proceed with cycle 12 FOLFOX (at same dosing as cycle 11) and continue Neulasta support for chemotherapy-induced neutropenia. B. Supportive care as needed. C. Today's labs were reviewed in detail and discussed with Ms. Lobato and a copy was given to her. WBC 9.6, hemoglobin 12.5, platelets 210,000 ANC is 6320. Potassium 3.7 creatinine 0.6 LFTs reveal an ALT of 53 AST of 48 alk phos 254. Her previous alk phos was 246 on September 02, 2020. Her CEA today is 23.7. Her CEA was 187 on April 28, 2020. 2. Anemia: A. She was found to be iron deficient with her labs on June 02, 2019 her iron sat was 6.5% her iron level was 23 and her ferritin was 66 TIBC was 352. She was unable to tolerate oral iron due to GI upset. B. Due to the intolerance of the oral iron, she was offered parenteral iron replacement with Injectafer. She began her first dose on July 01, 2020. Her second dose had been delayed due to increment weather. The second dose was administered on July 23, 2020. Her hemoglobin today is 12.5. Her iron has also recovered with an iron saturation of 41.1% ferritin is 424 and iron level is 119 as of 09/02/2020. 3. Thrombosis: A. DVT of the left popliteal to common femoral on March 06, 2020. She was started on Lovenox and transition to Eliquis B. 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 She resumed the Lovenox and was considered in Eliquis failure due to the recurrent clot. C. She continues with Lovenox 60 mg subcutaneous twice daily. 4. Amenorrhea A. FSH level from July 23, 2020 is 35.2 which indicates menopause. 5. Follow-up plan: A. She will complete cycle 12w2 today and we will request follow-up PET/CT gene to determine response. There may be a possibility of considering surgery at a tertiary care center if she has had dramatic improvement of the hepatic lesions. The last PET/CT from June 28, 2020 reported a 4.4 x 2.8 rectal mass with an SUV of 13.6. There were multifocal hepatic metastatic disease present most lesions did not demonstrate activity greater than that of the hepatic background but several lesions were FDG positive. An index lesion in the posterior segment measures 3.7 x 4.0 cm with an SUV of 4.7. B. We will see her back after review of followup PET/CT and possible referral to [facility] for possible surgery consult. C. Mrs. Lobato was instructed to contact us in interim should questions or problems arise. Signed By: Aman Sargent-, AOCNP Lucian Carson MD <<Signature on File>>
== END 2020-09-26 23:59 | disposition home or self-care (01) ==
LOC: ONCMED 06:00
PROVIDERS: Nurse Practitioner; PCP Nurse Practitioner Family; Visit Provider Internal Medicine Hematology & Oncology
DX: Z51.11 Encounter for antineoplastic chemotherapy (principal); C19 Malignant neoplasm of rectosigmoid junction; C78.7 Secondary malignant neoplasm of liver and intrahepatic bile duct; F41.9 Anxiety disorder, unspecified; F32.9 Major depressive disorder, single episode, unspecified; Z86.718 Personal history of other venous thrombosis and embolism; Z79.01 Long term (current) use of anticoagulants; Z79.899 Other long term (current) drug therapy
CPT/HCPCS: 80053; 82378; 82728; 83540; 83550; 83735; 85025; 96367; 96368; 96372; 96375; 96411; 96413; 96415; 96416; 96417; 96523; 99214; J0640; J1100; J1200; J1453; J2060; J2469; J2505; J3490; J9190; J9263

== ENCOUNTER 2020-11-05 12:54 | Outpatient (CLI) | payer OTHER, SELFPAY ==
--- NOTE | 2020-11-05 13:11 | CT_ITS ---
WS: [id number] CT ABDOMEN PELVIS TECHNIQUE: Contrast-enhanced CT of the abdomen and pelvis with coronal and sagittal reformatted image s. CLINICAL INFORMATION: METASTATIC COLORECTAL CANCER WITH LIVER METS RESTAGING COMPARISON: CT March 06, 2020 and PET/CT June 28, 2020 DLP: 1025.[address] scans at [facility] use at least one of these dose optimization techniques: automat ed exposure control; mA and/or kV adjustment per patient size (includes targeted exams where dose is matched to clinical indication); or iterative reconstruction. FINDINGS: Diffuse hepatic metastatic disease within both hepatic lobes. Hepatomegaly. Diffuse disease in the li kandace appears slightly improved compared to March 06, 2020, with the largest lesion in the right hepa tic lobe measuring 4.9 x 3.4 CM. Normal portal vein and splenic vein. Cholelithiasis. Previously described FDG positive rectal mass. There is increased bulky masslike bowel wall thickenin g in the rectosigmoid suspicious for progressed disease.This can be further evaluated with PET/CT. Ar ea of suspected progressed disease measures 3.1 x 5.1 CM. Lung bases are well aerated. Normal spleen. Normal GE junction. Normal pancreas. Normal caliber abdom inal aorta. Celiac and SMA are patent. No abdominal lymphadenopathy. No pelvic or inguinal lymphadenopathy. Adrenal glands are normal. Laney l renal parenchymal enhancement. No hydronephrosis. Tiny fat-containing umbilical hernia. CT/CT abdomen pelvis w con* [id number] IMPRESSION: 1. Diffuse hepatic metastatic disease with multiple lobulated metastatic lesio ns. Diffuse metastatic disease is persistent but improved since March 06 0. 2. Increased bulky bowel wall thickening involving the distal sigmoid colon an d rectum most consistent with progressed disease. This appears progressed christian red to the prior PET/CT June 28, 2020. This can be further evaluated with PE T/CT. 3. No abdominal or pelvic lymphadenopathy. 4. No other significant interval changes. 5. Cholelithiasis.
[2020-11-05] MEDS: iohexol 300 mg/mL 50 mL Btl PO (13:41)
[2020-11-05] MEDS: iohexol 300 mg/mL 100 mL Btl IV (14:25)
== END 2020-11-05 12:55 | disposition home or self-care (01) ==
PROVIDERS: PCP Nurse Practitioner Family; Visit Provider Nurse Practitioner
DX: C19 Malignant neoplasm of rectosigmoid junction (principal); K80.20 Calculus of gallbladder without cholecystitis without obstruction; K76.9 Liver disease, unspecified
CPT/HCPCS: 74177; Q9967

== ENCOUNTER 2020-12-02 09:54 | Outpatient (CLI) | payer OTHER, SELFPAY ==
--- NOTE | 2020-12-02 17:39 | ONC FU_ITS ---
Dr. Carson follow up note Patient: Ailyn Lobato Unit #: [id number]: [id number] Dicatated By: Lucian Carson M.D.Date of Visit:Dec 02, 2020 Onc Med Follow-up/Prog Note History of Present Illness: Mrs. Lobato is a 50-year-old female with who was diagnosed with colorectal cancer per colonoscopy done on March 08, 2020 at [facility] in [facility]. She reports he went to emergency room with 6-week history of progressive worsening of right upper quadrant pain and nausea along with history of off and on bleeding per rectum over 6-month duration. She states she thought her right upper quadrant pain was due to gallbladder. She underwent CT scan of chest abdomen pelvis on March 06, 2020 which showed asymmetric thickening of the wall of rectosigmoid colon and low to intermediate density hepatic masses in the liver a mass within the right lobe measured 5.6 cm in transverse dimension. Pancreas normal, adrenal normal and increased density within the left common femoral vein and left superficial femoral vein. A venous doppler done on March 06, 2020 confirmed left popliteal to common femoral DVT. She was started on Lovenox and later transitioned to Eliquis. Mrs Lobato was diagnosed with metastatic colorectal cancer with liver mets at [facility] on . 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 Mrs Murcia was seen by Dr. Dae Ren, medical oncologist. He recommended systemic chemotherapy with FOLFOX every 2 weeks. However on April 02, 2020, she went to back to [facility] ER with confusion and mental status changes of 1 week duration and MRI scan of the brain was done with a concern for metastatic disease but it did not show any evidence of brain mets but showed multiple areas of embolic and ischemic stroke particular to the right occipital region and bilateral cerebellar region. As there was no neurology coverage, [facility]. 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 On April 02, 2020, she underwent embolectomy of basilar artery and patient was discharged home on April 05, 2020 with Lovenox 60 mg twice a day and also concluded Eliquis failure. Mrs Moreland was seen by Dr. Evelio Ren and she was started on systemic chemotherapy with FOLFOX and second cycle of chemotherapy was completed on April 12, 2020. Due to her convenience as patient lives in [place], [place], she has decided to switch her care to [place]. She is completed 5 cycles of FOLFOX. She is required growth factor support for chemotherapy-induced neutropenia. She continues with Lovenox. Follow-up CT PET scan done after six cycles of modified FOLFOX, on June 28, 2020 showed there is a 4.4 x 2.8 cm rectal mass with SUV of 13.6 with presacral perirectal nodes are subcentimeter in size and too small to characterize. Multifocal hepatic metastatic disease is present most lesions do not demonstrate activity greater than that of hepatic background but several lesions are FDG positive the index lesion in the posterior segment four measuring 3.7 x 4.0 cm with SUV of 4.7 compared to 5.[address] scan done in February 2020, with significant central necrosis. She continues with FOLFOX with growth factor support. She received Injectafer on July 01, 2020 for oral iron intolerant documented iron deficiency. Her iron saturation on June 02, 2020 was 6.5% her ferritin was 66 and iron level was 23. Her hemoglobin at that time was 9.3. Her second dose of Injectafer had been delayed due to increment weather. She received her second dose on 07/23/2020. After 12 cycles of modified dose FOLFOX, Follow-up CT PET scan done on November 19, 2020 shows there is a mass associated with the colon near the rectosigmoid junction SUV of 18. Diffuse hepatic metastatic disease with SUV ranging from 8-13, subcentimeter pulmonary nodules in the right upper lobe and left upper lobe most likely early pulmonary metastatic disease, this PET scan was compared with CT scan of abdomen done on November 05, [address] PET scan done in May 2020 Came for follow-up, denies any specific complaints, no fever chills, no nausea or vomiting, no diarrhea or constipation, no melena or hematochezia, no hemoptysis or hematemesis, no hemoptysis or hematemesis, no jaundice, mild peripheral numbness Medications: Benadryl Allergy 1 Tablet (of 25 mg) Oral daily PRN, busPIRone HCl 1 Tablet (of 10 mg) Oral daily, Citalopram Hydrobromide 1 Tablet (of 20 mg) Oral daily, Enoxaparin Sodium 60 Units (of 300 mg/3mL) Injection b.i.d., Montelukast Sodium 1 Tablet (of 10 mg) Oral daily PRN, Probiotic 1 Capsule Oral daily, Promethazine HCl 1 Tablet (of 25 mg) Oral daily PRN, Zofran 1 Tablet (of 8 mg) Oral PRN Allergies: Bactrim, bananas lemon/[place] Sea food-omega, coffee, fish, garlic, milk , Penicillins, angel, and salmon. Review of Systems: Review of Systems is not available for this patient. Vital Signs: Performed on Dec 02, 2020 11:56 Height - 67.00 in Weight - 135.6 lbs (LOW) BSA - 1.71 sq.m BMI - 21.24 Temperature - 98.4 F Pulse - 99 /min Respiration - 18 /min BP - 110/73 mm(hg) O2 Sat - 98 % Pain - 0 Performance Status: 0 - Fully active, able to carry on all predisease activities without restrictions. (ECOG) Physical Examination: ENMT - No mouth sores, no thrush, no jaundice, Respiratory - Lungs are clear to auscultation, Cardiovascular - Regular rate and rhythm of heart, Abdomen - Soft, bowel sounds present, Extremities - No visible edema or rash. Lab/Imaging: Test performed on Sep 16, 2020 08:19 Sodium 135 mmol/L Potassium 3.7 mmol/L Chloride 102 mmol/L CO2 23 mmol/L Anion Gap 13.7 BUN 7 mg/dL Creatinine 0.6 mg/dL Cr Clearance (Est) 108.1200 mL/min eGFR 105.8 mL/min Glucose 132 mg/dL Osmolality - Calculated 280 mOsm/kg Calcium 8.1 mg/dL Protein, Total 5.8 g/dL Albumin 3.4 g/dL Globulin 2.4 g/dL Bilirubin, Total 0.2 mg/dL ALT (SGPT) 53 U/L AST (SGOT) 48 U/L Alkaline Phosphatase 254 IU/L WBC 9.6 10 3/uL RBC 3.72 10 6/uL HGB 12.5 g/dL HCT 38.5 % MCV 103.5 fL MCH 33.6 pg MCHC 32.5 g/dL RDW 17.2 % Platelet Count 210 10 3/cmm MPV 10.8 fL Neutrophils 6.32 10 3/uL Lymphocytes 1.8 10 3/uL Monocytes 0.9 10 3/uL Eosinophils 0.3 10 3/uL Basophils 0.1 10 3/uL Neutrophil % 65.8 % Lymphocyte % 18.7 % Monocyte % 9.7 % Eosinophil % 3.5 % Basophils % 0.6 % NRBC % 0 % CEA 23.7 ng/mL Test performed on Sep 02, 2020 09:00 Ferritin 424 ng/mL Iron 119 mcg/dL Magnesium 2.1 mg/dL Iron Binding Capacity (TIBC) 289 mcg/dl % Iron Saturation 41.1 % UIBC 170 mcg/dL Test performed on Jul 23, 2020 07:52 FSH 35.2 mIU/mL Impression: Metastatic colorectal cancer per colonoscopy done on March 08, 2020 confirmed adenocarcinoma and molecular profiling showed MMR proficient tumor, negative for KRAS and NRAS mutation but positive for BRAF V[address] scan of chest abdomen pelvis done on March 06, 2020 showed numerous low to intermediate density hepatic masses, mass within the right lobe measured 5.6 cm in transverse dimension. Nonspecific decreased attenuation noted in the periphery of spleen. And asymmetric thickening of the wall of the rectosigmoid colon. A lymph node near the segment of colon appears abnormally enlarged measuring 8.4 mm There is a fusion of T12 and L1 level. Left leg DVT confirmed by venous Doppler study done on March 06, 2020, initially treated with Eliquis, then patient was admitted [facility] on April 02, 2020, for which [facility] with mental status confusion due to multiple area of embolic and ischemic stroke seen in the right occipital region and bilateral cerebellar region per MRI scan done and on April 02, 2020 she underwent embolectomy of basilar artery. And was started on Lovenox 60 mg subcu twice daily and concluded Eliquis failure. Anxiety/depression Started on systemic chemotherapy with FOLFOX by Dr. Evelio Ren in [place] and completed a second cycle on April 12, 2020. She has now completed a total of 9 cycles of the FOLFOX and she is tolerating it well. She did require dose reduction with cycle 5 due to worsening peripheral neuropathy, increased diarrhea and mouth sores. Since that reduction, she has tolerated treatment well. She had follow-up PET/CT on June 28, 2020 which reported her rectal mass at 4.8 x 2.8 cm with an SUV of 13.6. There were presacral and perirectal nodes and subcentimeter size and too small to characterize. Multifocal metastatic disease was present but most lesions did not demonstrate activity greater than that of hepatic background but several lesions were FDG positive. An index lesion in the posterior segment 6 measures 3.7 x 4.0 cm with an aphthous SUV of 4.7 and significant central necrosis. It is noted that the breast parenchyma and axillary lymph node uptake bilaterally was unremarkable. She reports she has never had a mammogram. There was reactive bone marrow uptake presumed from recent Neulasta therapy. She continues with modified FOLFOX. Plan: Discussed with patient regarding her CT PET scan finding, patient was advised recent CT PET scan done on November 19, 2020 shows bilateral pulmonary nodules consistent with early metastatic disease and disease progression in the liver when compared with this CT scan of the chest abdomen done on November 05 2020, but comparison with CT PET scan done in May 2020 will be more appropriate, if disease progression is confirmed, then will consider switching her chemotherapy regimen which will include cetuximab based regimen she has BRAF V600E mutation, which is associated with poor prognosis. On the other hand if compared with previous CT PET scan this recent PET scan shows stable findings, will consider referral to tertiary care center for primary resection as well as hepatic artery chemoembolization considering no mets to the lung. 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 <<Signature on File>>
== END 2020-12-02 09:55 | disposition home or self-care (01) ==
LOC: ONCMED 09:58
PROVIDERS: PCP Nurse Practitioner Family; Visit Provider Internal Medicine Hematology & Oncology
DX: C19 Malignant neoplasm of rectosigmoid junction (principal); C78.7 Secondary malignant neoplasm of liver and intrahepatic bile duct; C78.01 Secondary malignant neoplasm of right lung; C78.02 Secondary malignant neoplasm of left lung; F41.9 Anxiety disorder, unspecified; F32.9 Major depressive disorder, single episode, unspecified; Z86.718 Personal history of other venous thrombosis and embolism; Z92.21 Personal history of antineoplastic chemotherapy; Z79.899 Other long term (current) drug therapy
CPT/HCPCS: 99215

== ENCOUNTER 2020-12-10 15:38 | Outpatient (CLI) | payer OTHER, SELFPAY ==
--- NOTE | 2020-12-14 15:48 | ONC FU_ITS ---
Dr. Carson follow up note Patient: Ailyn Lobato Unit #: [id number]: [id number] Dicatated By: Lucian Carson M.D.Date of Visit:Dec 10, 2020 Onc Med Follow-up/Prog Note History of Present Illness: Mrs. Lobato is a 50-year-old female with who was diagnosed with colorectal cancer per colonoscopy done on March 08, 2020 at [facility] in [facility]. She reports he went to emergency room with 6-week history of progressive worsening of right upper quadrant pain and nausea along with history of off and on bleeding per rectum over 6-month duration. She states she thought her right upper quadrant pain was due to gallbladder. She underwent CT scan of chest abdomen pelvis on March 06, 2020 which showed asymmetric thickening of the wall of rectosigmoid colon and low to intermediate density hepatic masses in the liver a mass within the right lobe measured 5.6 cm in transverse dimension. Pancreas normal, adrenal normal and increased density within the left common femoral vein and left superficial femoral vein. A venous doppler done on March 06, 2020 confirmed left popliteal to common femoral DVT. She was started on Lovenox and later transitioned to Eliquis. Mrs Lobato was diagnosed with metastatic colorectal cancer with liver mets at [facility] on . 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 Mrs Murcia was seen by Dr. Dae Ren, medical oncologist. He recommended systemic chemotherapy with FOLFOX every 2 weeks. However on April 02, 2020, she went to back to [facility] ER with confusion and mental status changes of 1 week duration and MRI scan of the brain was done with a concern for metastatic disease but it did not show any evidence of brain mets but showed multiple areas of embolic and ischemic stroke particular to the right occipital region and bilateral cerebellar region. As there was no neurology coverage, she was transferred to [facility] in [facility]. 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 On April 02, 2020, she underwent embolectomy of basilar artery and patient was discharged home on April 05, 2020 with Lovenox 60 mg twice a day and also concluded Eliquis failure. Mrs Moreland was seen by Dr. Evelio Ren and she was started on systemic chemotherapy with FOLFOX and second cycle of chemotherapy was completed on April 12, 2020. Due to her convenience as patient lives in [place], [place], she has decided to switch her care to [place]. She is completed 5 cycles of FOLFOX. She is required growth factor support for chemotherapy-induced neutropenia. She continues with Lovenox. Follow-up CT PET scan done after six cycles of modified FOLFOX, on June 28, 2020 showed there is a 4.4 x 2.8 cm rectal mass with SUV of 13.6 with presacral perirectal nodes are subcentimeter in size and too small to characterize. Multifocal hepatic metastatic disease is present most lesions do not demonstrate activity greater than that of hepatic background but several lesions are FDG positive the index lesion in the posterior segment four measuring 3.7 x 4.0 cm with SUV of 4.7 compared to 5.[address] scan done in February 2020, with significant central necrosis. She continues with FOLFOX with growth factor support. She received Injectafer on July 01, 2020 for oral iron intolerant documented iron deficiency. Her iron saturation on June 02, 2020 was 6.5% her ferritin was 66 and iron level was 23. Her hemoglobin at that time was 9.3. Her second dose of Injectafer had been delayed due to increment weather. She received her second dose on 07/23/2020. After 12 cycles of modified dose FOLFOX, Follow-up CT PET scan done on November 19, 2020 shows there is a mass associated with the colon near the rectosigmoid junction SUV of 18. Diffuse hepatic metastatic disease with SUV ranging from 8-13, subcentimeter pulmonary nodules in the right upper lobe and left upper lobe most likely early pulmonary metastatic disease, this PET scan was compared with CT scan of abdomen done on November 05, [address] PET scan done in May 2020, When compared with CT PET scan from May 2020, it confirmed disease progression as mass near the rectosigmoid junction has increased in size and also progressed on CT PET scan as SUV is 18 compared to 13.6 previously as well as tumor volume is 78 mL compared to 26 mL previously Also severe progression of hepatic metastasis on previous exam only scattered areas of increased activity compared to marked increase in number and size of foci of abnormal activity which are now becoming confluent throughout many areas in the liver. There are 2 subcentimeter pulmonary nodules which are but positive on current study appearing to have enlarged slightly from prior CT PET scan as right upper lobe nodule is 7.4 mm compared to 6 mm before and the left upper lobe is 8.8 mm compared to 5.6 mm before Switched to FOLFIRI from FOLFOX after follow-up PET scan done on November 19, 2020 showed disease progression Came for follow-up, denies any specific complaints except generalized weakness and fatigue, no nausea or vomiting, no diarrhea or constipation, no jaundice, no abdominal pain, no melena or hematochezia Medications: Benadryl Allergy 1 Tablet (of 25 mg) Oral daily PRN, busPIRone HCl 1 Tablet (of 10 mg) Oral daily, Citalopram Hydrobromide 1 Tablet (of 20 mg) Oral daily, Enoxaparin Sodium 60 Units (of 300 mg/3mL) Injection b.i.d., Montelukast Sodium 1 Tablet (of 10 mg) Oral daily PRN, Probiotic 1 Capsule Oral daily, Promethazine HCl 1 Tablet (of 25 mg) Oral daily PRN, Zofran 1 Tablet (of 8 mg) Oral PRN Allergies: Bactrim, bananas lemon/[place] Sea food-omega, coffee, fish, garlic, milk , Penicillins, angel, and salmon. Review of Systems: Review of Systems is not available for this patient. Vital Signs: Performed on Dec 10, 2020 16:37 Height - 67.00 in Weight - 135 lbs (LOW) BSA - 1.71 sq.m BMI - 21.14 Temperature - 98.2 F (LOW) Pulse - 99 /min Respiration - 18 /min BP - 112/73 mm(hg) O2 Sat - 92 % (LOW) Pain - 0 Fatigue - 2 Performance Status: 0 - Fully active, able to carry on all predisease activities without restrictions. (ECOG) Physical Examination: ENMT - No mouth sores, no thrush, no jaundice, Respiratory - Lungs are clear to auscultation, Cardiovascular - Regular rate and rhythm of heart, Abdomen - Soft, bowel sounds present, Extremities - No visible edema. Lab/Imaging: Test performed on Sep 16, 2020 08:19 Sodium 135 mmol/L Potassium 3.7 mmol/L Chloride 102 mmol/L CO2 23 mmol/L Anion Gap 13.7 BUN 7 mg/dL Creatinine 0.6 mg/dL Cr Clearance (Est) 108.1200 mL/min eGFR 105.8 mL/min Glucose 132 mg/dL Osmolality - Calculated 280 mOsm/kg Calcium 8.1 mg/dL Protein, Total 5.8 g/dL Albumin 3.4 g/dL Globulin 2.4 g/dL Bilirubin, Total 0.2 mg/dL ALT (SGPT) 53 U/L AST (SGOT) 48 U/L Alkaline Phosphatase 254 IU/L WBC 9.6 10 3/uL RBC 3.72 10 6/uL HGB 12.5 g/dL HCT 38.5 % MCV 103.5 fL MCH 33.6 pg MCHC 32.5 g/dL RDW 17.2 % Platelet Count 210 10 3/cmm MPV 10.8 fL Neutrophils 6.32 10 3/uL Lymphocytes 1.8 10 3/uL Monocytes 0.9 10 3/uL Eosinophils 0.3 10 3/uL Basophils 0.1 10 3/uL Neutrophil % 65.8 % Lymphocyte % 18.7 % Monocyte % 9.7 % Eosinophil % 3.5 % Basophils % 0.6 % NRBC % 0 % CEA 23.7 ng/mL Test performed on Sep 02, 2020 09:00 Ferritin 424 ng/mL Iron 119 mcg/dL Magnesium 2.1 mg/dL Iron Binding Capacity (TIBC) 289 mcg/dl % Iron Saturation 41.1 % UIBC 170 mcg/dL Test performed on Jul 23, 2020 07:52 FSH 35.2 mIU/mL Impression: Metastatic colorectal cancer per colonoscopy done on March 08, 2020 confirmed adenocarcinoma and molecular profiling showed MMR proficient tumor, negative for KRAS and NRAS mutation but positive for BRAF V[address] scan of chest abdomen pelvis done on March 06, 2020 showed numerous low to intermediate density hepatic masses, mass within the right lobe measured 5.6 cm in transverse dimension. Nonspecific decreased attenuation noted in the periphery of spleen. And asymmetric thickening of the wall of the rectosigmoid colon. A lymph node near the segment of colon appears abnormally enlarged measuring 8.4 mm There is a fusion of T12 and L1 level. Left leg DVT confirmed by venous Doppler study done on March 06, 2020, initially treated with Eliquis, then patient was admitted [facility] on April 02, 2020, for which she was transferred to [facility] in [facility] with mental status confusion due to multiple area of embolic and ischemic stroke seen in the right occipital region and bilateral cerebellar region per MRI scan done and on April 02, 2020 she underwent embolectomy of basilar artery. And was started on Lovenox 60 mg subcu twice daily and concluded Eliquis failure. Anxiety/depression Started on systemic chemotherapy with FOLFOX by Dr. Evelio Ren in [place] and completed a second cycle on April 12, 2020. She has now completed a total of 9 cycles of the FOLFOX and she is tolerating it well. She did require dose reduction with cycle 5 due to worsening peripheral neuropathy, increased diarrhea and mouth sores. Since that reduction, she has tolerated treatment well. She had follow-up PET/CT on June 28, 2020 which reported her rectal mass at 4.8 x 2.8 cm with an SUV of 13.6. There were presacral and perirectal nodes and subcentimeter size and too small to characterize. Multifocal metastatic disease was present but most lesions did not demonstrate activity greater than that of hepatic background but several lesions were FDG positive. An index lesion in the posterior segment 6 measures 3.7 x 4.0 cm with an aphthous SUV of 4.7 and significant central necrosis. It is noted that the breast parenchyma and axillary lymph node uptake bilaterally was unremarkable. She reports she has never had a mammogram. There was reactive bone marrow uptake presumed from recent Neulasta therapy. She continues with modified FOLFOX. Follow-up CT PET scan done on November 19, 2020 showed disease progression in the rectosigmoid junction mass which has increased in size as well as SUV now 18 compared to 13.6 in May 2020 and worsening of diffuse hepatic metastatic disease, and subcentimeter pulmonary nodules in the upper lobes also has slightly increased and FDG positive, her chemotherapy was changed to FOLFIRI from FOLFOX Plan: Discussed with patient regarding her follow-up CT PET scan done on November 19, 2020, previously was compared with CT scan of abdomen but when compared with CT PET scan done in May 2020 it shows disease progression as primary lesion in the rectosigmoid area has increased in size and in FDG value, also now with diffuse hepatic mets both increase in size and SUV, subcentimeter nodules in bilateral upper lobes have slightly increased in size and no FDG positive when compared with a CT PET scan done in May 2020, based on these findings, we will discontinue FOLFOX and patient was recommended to proceed with systemic therapy with FOLFIRI all the side effect and possible benefits associated with this regimen including but not limited to, bone marrow suppression, nausea vomiting, hand-foot syndrome, abdominal pain/diarrhea especially with irinotecan, peripheral neuropathy, were mentioned, further teaching will done by chemotherapy nurse, will obtain flu from her insurance prior to the treatment and then she will proceed on FOLFIRI every 2 weeks and plan to give her [address] PET scan and if it shows resolution of pulmonary mets and improvement in rectosigmoid primary as well as liver mets, may consider resection of rectosigmoid primary and hepatic artery chemoembolization. Patient will return to clinic 1 week after initiation of FOLFIRI with CBC CMP Signed By: Lucian Carson M.D. <<Signature on File>>
== END 2020-12-10 15:39 | disposition home or self-care (01) ==
PROVIDERS: PCP Nurse Practitioner Family; Visit Provider Internal Medicine Hematology & Oncology
DX: C19 Malignant neoplasm of rectosigmoid junction (principal); C78.7 Secondary malignant neoplasm of liver and intrahepatic bile duct; C78.01 Secondary malignant neoplasm of right lung; C78.02 Secondary malignant neoplasm of left lung; F41.9 Anxiety disorder, unspecified; F32.9 Major depressive disorder, single episode, unspecified; Z86.718 Personal history of other venous thrombosis and embolism; Z79.899 Other long term (current) drug therapy; Z92.21 Personal history of antineoplastic chemotherapy
CPT/HCPCS: 99214

== ENCOUNTER 2020-12-23 05:39 | Outpatient (RCR) | payer OTHER, SELFPAY ==
[2020-12-17 09:13] LABS: Basophils # 0.1 10^3/uL (0.0-0.1); Basophils % 0.6 %; Eosinophils # 0.2 10^3/uL (0.0-0.8); Eosinophils % 2.4 %; Hematocrit 29.1 % (37.0-47.0); Hemoglobin 9.5 g/dL (11.5-15.3); Lymphocytes # 1.6 10^3/uL (0.8-4.8); Lymphocytes % 18.8 %; Mean Corpuscular HGB Conc 32.6 g/dL (30.0-36.0); Mean Corpuscular Hemoglobin 31.7 pg (28.0-34.0); Mean Platelet Volume 9.5 fL (7.4-10.4); Monocytes # 0.8 10^3/uL (0.2-0.9); Monocytes % 9.2 %; Neutrophils # 5.74 10^3/uL (1.8-7.7); Neutrophils % 68.6 %; Nucleated Red Blood Cells % 0 %; Platelet Count 299 10^3/cmm (130-400); Red Cell Distribution Width 11.7 % (12.1-15.1); White Blood Count 8.4 10^3/uL (4.0-10.0)
[2020-12-17 09:26] LABS: Alanine Aminotransferase 32 U/L (0-33); Albumin Level 3.3 g/dL (3.5-5.2); Alkaline Phosphatase 270 IU/L (35-105); Anion Gap 14.4 (5-19); Aspartate Amino Transferase 70 U/L (0-32); Blood Urea Nitrogen 9 mg/dL (6-20); Calcium 8.5 mg/dL (8.5-10.5); Carbon Dioxide 24 mmol/L (22-29); Chloride 99 mmol/L (98-107); Globulin 2.8 g/dL (1.3-4.6); Glomerular Filtration Rate 105.4 mL/min (90-130); Glucose 84 mg/dL (65-115); Osmolality Calculated 274 mOsm/kg (285-295); Potassium 4.4 mmol/L (3.5-5.1); Sodium 133 mmol/L (136-145); Total Bilirubin 0.2 mg/dL (0.15-1.2); Total Protein 6.1 g/dL (6.6-8.7)
[2020-12-17] MEDS: sodium chloride 0.9% 250 ML 75 ML IV (10:37)
[2020-12-17] MEDS: atropine 1 mg/mL SDV 1 mL 0.4 MG IV (10:37)
[2020-12-17] MEDS: palonosetron 0.25 mg/5 mL SDV IVP (10:39)
[2020-12-17] MEDS: LORazepam 2 mg/mL INJ 1 mL 0.5 MG IV (13:00)
[2020-12-19] MEDS: LORazepam 2 mg/mL INJ 1 mL 0.5 MG IV (10:42)
[2020-12-19] MEDS: sodium chloride 0.9% 1,000 ML 999 ML IV (10:44)
[2020-12-23] MEDS: sodium chloride 0.9% 1,000 ML 999 ML IV (10:17)
[2020-12-23] MEDS: LORazepam 2 mg/mL INJ 1 mL 0.5 MG IV (10:18)
[2020-12-23 10:56] LABS: Basophils % 0.4 %; Eosinophils # 0.2 10^3/uL (0.0-0.8); Hematocrit 28.3 % (37.0-47.0); Hemoglobin 9.1 g/dL (11.5-15.3); Lymphocytes # 1.3 10^3/uL (0.8-4.8); Lymphocytes % 26.2 %; Mean Corpuscular HGB Conc 32.2 g/dL (30.0-36.0); Mean Corpuscular Hemoglobin 31.3 pg (28.0-34.0); Mean Corpuscular Volume 97.3 fL (81-99); Mean Platelet Volume 9.6 fL (7.4-10.4); Monocytes # 0.2 10^3/uL (0.2-0.9); Neutrophils # 3.07 10^3/uL (1.8-7.7); Neutrophils % 63.8 %; Nucleated Red Blood Cells % 0 %; Platelet Count 326 10^3/cmm (130-400); Red Blood Count 2.91 10^6/uL (4.1-5.3); Red Cell Distribution Width 11.7 % (12.1-15.1); White Blood Count 4.8 10^3/uL (4.0-10.0)
[2020-12-23 11:29] LABS: Alanine Aminotransferase 36 U/L (0-33); Albumin Level 3.3 g/dL (3.5-5.2); Alkaline Phosphatase 220 IU/L (35-105); Anion Gap 15.7 (5-19); Aspartate Amino Transferase 54 U/L (0-32); Blood Urea Nitrogen 9 mg/dL (6-20); Calcium 8.2 mg/dL (8.5-10.5); Carbon Dioxide 23 mmol/L (22-29); Chloride 99 mmol/L (98-107); Globulin 2.6 g/dL (1.3-4.6); Glomerular Filtration Rate 105.4 mL/min (90-130); Glucose 129 mg/dL (65-115); Osmolality Calculated 278 mOsm/kg (285-295); Potassium 3.7 mmol/L (3.5-5.1); Sodium 134 mmol/L (136-145); Total Bilirubin 0.2 mg/dL (0.15-1.2); Total Protein 5.9 g/dL (6.6-8.7)
--- NOTE | 2020-12-23 12:41 | ONC FU_ITS ---
Dr. Carson follow up note Patient: Ailyn Lobato Unit #: [id number]: [id number] Dicatated By: Lucian Carson M.D.Date of Visit:Dec 23, 2020 Onc Med Follow-up/Prog Note History of Present Illness: Mrs. Lobato is a 50-year-old female with who was diagnosed with colorectal cancer per colonoscopy done on March 08, 2020 at [facility] in [facility]. She reports he went to emergency room with 6-week history of progressive worsening of right upper quadrant pain and nausea along with history of off and on bleeding per rectum over 6-month duration. She states she thought her right upper quadrant pain was due to gallbladder. She underwent CT scan of chest abdomen pelvis on March 06, 2020 which showed asymmetric thickening of the wall of rectosigmoid colon and low to intermediate density hepatic masses in the liver a mass within the right lobe measured 5.6 cm in transverse dimension. Pancreas normal, adrenal normal and increased density within the left common femoral vein and left superficial femoral vein. A venous doppler done on March 06, 2020 confirmed left popliteal to common femoral DVT. She was started on Lovenox and later transitioned to Eliquis. Mrs Lobato was diagnosed with metastatic colorectal cancer with liver mets at [facility] on . 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 Mrs Murcia was seen by Dr. Dae Ren, medical oncologist. He recommended systemic chemotherapy with FOLFOX every 2 weeks. However on April 02, 2020, she went to back to [facility] ER with confusion and mental status changes of 1 week duration and MRI scan of the brain was done with a concern for metastatic disease but it did not show any evidence of brain mets but showed multiple areas of embolic and ischemic stroke particular to the right occipital region and bilateral cerebellar region. As there was no neurology coverage, she was transferred to [facility] in [facility]. 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 On April 02, 2020, she underwent embolectomy of basilar artery and patient was discharged home on April 05, 2020 with Lovenox 60 mg twice a day and also concluded Eliquis failure. Mrs Moreland was seen by Dr. Evelio Ren and she was started on systemic chemotherapy with FOLFOX and second cycle of chemotherapy was completed on April 12, 2020. Due to her convenience as patient lives in [place], [place], she has decided to switch her care to [place]. She is completed 5 cycles of FOLFOX. She is required growth factor support for chemotherapy-induced neutropenia. She continues with Lovenox. Follow-up CT PET scan done after six cycles of modified FOLFOX, on June 28, 2020 showed there is a 4.4 x 2.8 cm rectal mass with SUV of 13.6 with presacral perirectal nodes are subcentimeter in size and too small to characterize. Multifocal hepatic metastatic disease is present most lesions do not demonstrate activity greater than that of hepatic background but several lesions are FDG positive the index lesion in the posterior segment four measuring 3.7 x 4.0 cm with SUV of 4.7 compared to 5.[address] scan done in February 2020, with significant central necrosis. She continues with FOLFOX with growth factor support. She received Injectafer on July 01, 2020 for oral iron intolerant documented iron deficiency. Her iron saturation on June 02, 2020 was 6.5% her ferritin was 66 and iron level was 23. Her hemoglobin at that time was 9.3. Her second dose of Injectafer had been delayed due to increment weather. She received her second dose on 07/23/2020. After 12 cycles of modified dose FOLFOX, Follow-up CT PET scan done on November 19, 2020 shows there is a mass associated with the colon near the rectosigmoid junction SUV of 18. Diffuse hepatic metastatic disease with SUV ranging from 8-13, subcentimeter pulmonary nodules in the right upper lobe and left upper lobe most likely early pulmonary metastatic disease, this PET scan was compared with CT scan of abdomen done on November 05, [address] PET scan done in May 2020, When compared with CT PET scan from May 2020, it confirmed disease progression as mass near the rectosigmoid junction has increased in size and also progressed on CT PET scan as SUV is 18 compared to 13.6 previously as well as tumor volume is 78 mL compared to 26 mL previously Also severe progression of hepatic metastasis on previous exam only scattered areas of increased activity compared to marked increase in number and size of foci of abnormal activity which are now becoming confluent throughout many areas in the liver. There are 2 subcentimeter pulmonary nodules which are but positive on current study appearing to have enlarged slightly from prior CT PET scan as right upper lobe nodule is 7.4 mm compared to 6 mm before and the left upper lobe is 8.8 mm compared to 5.6 mm before And CEA gone up to 246 on December 17, 2020 compared to 23.7 on September 16, 2020 so she was Switched to FOLFIRI from FOLFOX after follow-up PET scan done on November 19, 2020 showed disease progression Which she started on December 17, 2020 Came for follow-up, denies any specific complaints, except generalized weakness and fatigue, patient tolerated first cycle of FOLFIRI well but with mild nausea but no vomiting, no abdominal pain, no diarrhea or constipation, no hemoptysis hematemesis, no jaundice, no fever chills Medications: Benadryl Allergy 1 Tablet (of 25 mg) Oral daily PRN, busPIRone HCl 1 Tablet (of 10 mg) Oral daily, Citalopram Hydrobromide 1 Tablet (of 20 mg) Oral daily, Enoxaparin Sodium 60 Units (of 300 mg/3mL) Injection b.i.d., Montelukast Sodium 1 Tablet (of 10 mg) Oral daily PRN, Probiotic 1 Capsule Oral daily, Promethazine HCl 1 Tablet (of 25 mg) Oral daily PRN, Zofran 1 Tablet (of 8 mg) Oral PRN Allergies: Bactrim, bananas lemon/[place] Sea food-omega, coffee, fish, garlic, milk , Penicillins, angel, and salmon. Review of Systems: Review of Systems is not available for this patient. Vital Signs: Performed on Dec 23, 2020 11:30 Height - 67.00 in Weight - 136.6 lbs (HIGH) BSA - 1.72 sq.m BMI - 21.39 Temperature - 97.9 F (LOW) Pulse - 93 /min Respiration - 18 /min BP - 101/67 mm(hg) O2 Sat - 98 % Pain - 0 Fatigue - 3 Performance Status: 1 - No physically strenuous activity, but ambulatory and able to carry out light or sedentary work (e.g. office work, light house work). (ECOG) Physical Examination: ENMT - No mouth sores, no thrush, no jaundice, Respiratory - Lungs are clear to auscultation, Cardiovascular - Regular rate and rhythm of heart, Abdomen - Soft, bowel sounds present, Extremities - No visible edema. Lab/Imaging: Test performed on Sep 16, 2020 08:19 Sodium 135 mmol/L Potassium 3.7 mmol/L Chloride 102 mmol/L CO2 23 mmol/L Anion Gap 13.7 BUN 7 mg/dL Creatinine 0.6 mg/dL Cr Clearance (Est) 108.1200 mL/min eGFR 105.8 mL/min Glucose 132 mg/dL Osmolality - Calculated 280 mOsm/kg Calcium 8.1 mg/dL Protein, Total 5.8 g/dL Albumin 3.4 g/dL Globulin 2.4 g/dL Bilirubin, Total 0.2 mg/dL ALT (SGPT) 53 U/L AST (SGOT) 48 U/L Alkaline Phosphatase 254 IU/L WBC 9.6 10 3/uL RBC 3.72 10 6/uL HGB 12.5 g/dL HCT 38.5 % MCV 103.5 fL MCH 33.6 pg MCHC 32.5 g/dL RDW 17.2 % Platelet Count 210 10 3/cmm MPV 10.8 fL Neutrophils 6.32 10 3/uL Lymphocytes 1.8 10 3/uL Monocytes 0.9 10 3/uL Eosinophils 0.3 10 3/uL Basophils 0.1 10 3/uL Neutrophil % 65.8 % Lymphocyte % 18.7 % Monocyte % 9.7 % Eosinophil % 3.5 % Basophils % 0.6 % NRBC % 0 % CEA 23.7 ng/mL Test performed on Sep 02, 2020 09:00 Ferritin 424 ng/mL Iron 119 mcg/dL Magnesium 2.1 mg/dL Iron Binding Capacity (TIBC) 289 mcg/dl % Iron Saturation 41.1 % UIBC 170 mcg/dL Test performed on Jul 23, 2020 07:52 FSH 35.2 mIU/mL Impression: Metastatic colorectal cancer per colonoscopy done on March 08, 2020 confirmed adenocarcinoma and molecular profiling showed MMR proficient tumor, negative for KRAS and NRAS mutation but positive for BRAF V[address] scan of chest abdomen pelvis done on March 06, 2020 showed numerous low to intermediate density hepatic masses, mass within the right lobe measured 5.6 cm in transverse dimension. Nonspecific decreased attenuation noted in the periphery of spleen. And asymmetric thickening of the wall of the rectosigmoid colon. A lymph node near the segment of colon appears abnormally enlarged measuring 8.4 mm There is a fusion of T12 and L1 level. Left leg DVT confirmed by venous Doppler study done on March 06, 2020, initially treated with Eliquis, then patient was admitted [facility] on April 02, 2020, for which she was transferred to [facility] in [facility] with mental status confusion due to multiple area of embolic and ischemic stroke seen in the right occipital region and bilateral cerebellar region per MRI scan done and on April 02, 2020 she underwent embolectomy of basilar artery. And was started on Lovenox 60 mg subcu twice daily and concluded Eliquis failure. Anxiety/depression Started on systemic chemotherapy with FOLFOX by Dr. Evelio Ren in [place] and completed a second cycle on April 12, 2020. She has now completed a total of 9 cycles of the FOLFOX and she is tolerating it well. She did require dose reduction with cycle 5 due to worsening peripheral neuropathy, increased diarrhea and mouth sores. Since that reduction, she has tolerated treatment well. She had follow-up PET/CT on June 28, 2020 which reported her rectal mass at 4.8 x 2.8 cm with an SUV of 13.6. There were presacral and perirectal nodes and subcentimeter size and too small to characterize. Multifocal metastatic disease was present but most lesions did not demonstrate activity greater than that of hepatic background but several lesions were FDG positive. An index lesion in the posterior segment 6 measures 3.7 x 4.0 cm with an aphthous SUV of 4.7 and significant central necrosis. It is noted that the breast parenchyma and axillary lymph node uptake bilaterally was unremarkable. She reports she has never had a mammogram. There was reactive bone marrow uptake presumed from recent Neulasta therapy. She continues with modified FOLFOX. Follow-up CT PET scan done on November 19, 2020 showed disease progression in the rectosigmoid junction mass which has increased in size as well as SUV now 18 compared to 13.6 in May 2020 and worsening of diffuse hepatic metastatic disease, and subcentimeter pulmonary nodules in the upper lobes also has slightly increased and FDG positive, her chemotherapy was changed to FOLFIRI from FOLFOX Plan: Discussed with patient regarding her labs white blood count 4.8 hemoglobin 9.1 g hematocrit 28.3 platelets 326,000 CMP within normal limit except ALT 36 AST 54 compared to 70 previously alk phos 220 Clinically, patient is doing reasonably well, now being treated with FOLFIRI, tolerated first cycle without significant issues except mild nausea. Her blood count looks reasonable except persistent mild/moderate anemia but stable, and mildly elevated transaminases, stable, will continue to monitor she will return to clinic in 1 week with CBC CMP and if reasonable, second cycle of chemotherapy with FOLFIRI As far as mild nausea is concerned, patient was advised to try lorazepam 0.5 mg every 8 hours for 48 hours after the chemo and then as needed Signed By: Lucian Carson M.D. <<Signature on File>>
== END 2020-12-27 23:59 | disposition home or self-care (01) ==
LOC: ONCMED 05:39
PROVIDERS: PCP Nurse Practitioner Family; Visit Provider Internal Medicine Hematology & Oncology
DX: Z51.11 Encounter for antineoplastic chemotherapy (principal); C19 Malignant neoplasm of rectosigmoid junction; C78.7 Secondary malignant neoplasm of liver and intrahepatic bile duct; F41.9 Anxiety disorder, unspecified; F32.9 Major depressive disorder, single episode, unspecified; Z86.718 Personal history of other venous thrombosis and embolism; Z79.01 Long term (current) use of anticoagulants; Z79.899 Other long term (current) drug therapy; Z92.21 Personal history of antineoplastic chemotherapy
CPT/HCPCS: 36415; 80053; 82378; 85025; 96361; 96367; 96368; 96374; 96375; 96413; 96415; 96416; 99214; J0461; J0640; J1100; J2060; J2469; J7030; J7050; J9190; J9206

== ENCOUNTER 2021-01-27 05:42 | Outpatient (RCR) | payer OTHER, SELFPAY ==
[2020-12-29 10:08] LABS: Basophils # 0.1 10^3/uL (0.0-0.1); Basophils % 0.8 %; Eosinophils # 0.2 10^3/uL (0.0-0.8); Hematocrit 28.7 % (37.0-47.0); Hemoglobin 9.1 g/dL (11.5-15.3); Lymphocytes # 1.7 10^3/uL (0.8-4.8); Mean Corpuscular HGB Conc 31.7 g/dL (30.0-36.0); Mean Corpuscular Volume 97.6 fL (81-99); Mean Platelet Volume 9.2 fL (7.4-10.4); Monocytes # 0.7 10^3/uL (0.2-0.9); Monocytes % 9.9 %; Neutrophils # 4.05 10^3/uL (1.8-7.7); Nucleated Red Blood Cells % 0 %; Platelet Count 320 10^3/cmm (130-400); Red Blood Count 2.94 10^6/uL (4.1-5.3); Red Cell Distribution Width 12.3 % (12.1-15.1); White Blood Count 6.6 10^3/uL (4.0-10.0)
[2020-12-29 10:39] LABS: Alanine Aminotransferase 26 U/L (0-33); Albumin Level 3.5 g/dL (3.5-5.2); Alkaline Phosphatase 250 IU/L (35-105); Anion Gap 14.3 (5-19); Aspartate Amino Transferase 54 U/L (0-32); Blood Urea Nitrogen 7 mg/dL (6-20); Calcium 8.5 mg/dL (8.5-10.5); Carbon Dioxide 25 mmol/L (22-29); Chloride 102 mmol/L (98-107); Globulin 2.8 g/dL (1.3-4.6); Glomerular Filtration Rate 75.6 mL/min (90-130); Glucose 83 mg/dL (65-115); Osmolality Calculated 281 mOsm/kg (285-295); Potassium 4.3 mmol/L (3.5-5.1); Sodium 137 mmol/L (136-145); Total Bilirubin 0.2 mg/dL (0.15-1.2); Total Protein 6.3 g/dL (6.6-8.7)
[2020-12-29] MEDS: sodium chloride 0.9% 250 ML 75 ML IV (11:45)
[2020-12-29] MEDS: atropine 1 mg/mL SDV 1 mL 0.4 MG IV (11:45)
[2020-12-29] MEDS: palonosetron 0.25 mg/5 mL SDV IVP (11:47)
[2020-12-29] MEDS: LORazepam 2 mg/mL INJ 1 mL 0.5 MG IV (13:00)
--- NOTE | 2020-12-29 13:10 | ONC FU_ITS ---
Dr. Carson follow up note Patient: Ailyn Lobato Unit #: [id number]: [id number] Dicatated By: Lucian Carson M.D.Date of Visit:Dec 29, 2020 Onc Med Follow-up/Prog Note History of Present Illness: Mrs. Lobato is a 50-year-old female with who was diagnosed with colorectal cancer per colonoscopy done on March 08, 2020 at [facility] in [facility]. She reports he went to emergency room with 6-week history of progressive worsening of right upper quadrant pain and nausea along with history of off and on bleeding per rectum over 6-month duration. She states she thought her right upper quadrant pain was due to gallbladder. She underwent CT scan of chest abdomen pelvis on March 06, 2020 which showed asymmetric thickening of the wall of rectosigmoid colon and low to intermediate density hepatic masses in the liver a mass within the right lobe measured 5.6 cm in transverse dimension. Pancreas normal, adrenal normal and increased density within the left common femoral vein and left superficial femoral vein. A venous doppler done on March 06, 2020 confirmed left popliteal to common femoral DVT. She was started on Lovenox and later transitioned to Eliquis. Mrs Lobato was diagnosed with metastatic colorectal cancer with liver mets at [facility] on . 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 Mrs Murcia was seen by Dr. Dae Ren, medical oncologist. He recommended systemic chemotherapy with FOLFOX every 2 weeks. However on April 02, 2020, she went to back to [facility] ER with confusion and mental status changes of 1 week duration and MRI scan of the brain was done with a concern for metastatic disease but it did not show any evidence of brain mets but showed multiple areas of embolic and ischemic stroke particular to the right occipital region and bilateral cerebellar region. As there was no neurology coverage, she was transferred to [facility] in [facility]. 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 On April 02, 2020, she underwent embolectomy of basilar artery and patient was discharged home on April 05, 2020 with Lovenox 60 mg twice a day and also concluded Eliquis failure. Mrs Moreland was seen by Dr. Evelio Ren and she was started on systemic chemotherapy with FOLFOX and second cycle of chemotherapy was completed on April 12, 2020. Due to her convenience as patient lives in [place], [place], she has decided to switch her care to [place]. She is completed 5 cycles of FOLFOX. She is required growth factor support for chemotherapy-induced neutropenia. She continues with Lovenox. Follow-up CT PET scan done after six cycles of modified FOLFOX, on June 28, 2020 showed there is a 4.4 x 2.8 cm rectal mass with SUV of 13.6 with presacral perirectal nodes are subcentimeter in size and too small to characterize. Multifocal hepatic metastatic disease is present most lesions do not demonstrate activity greater than that of hepatic background but several lesions are FDG positive the index lesion in the posterior segment four measuring 3.7 x 4.0 cm with SUV of 4.7 compared to 5.[address] scan done in February 2020, with significant central necrosis. She continues with FOLFOX with growth factor support. She received Injectafer on July 01, 2020 for oral iron intolerant documented iron deficiency. Her iron saturation on June 02, 2020 was 6.5% her ferritin was 66 and iron level was 23. Her hemoglobin at that time was 9.3. Her second dose of Injectafer had been delayed due to increment weather. She received her second dose on 07/23/2020. After 12 cycles of modified dose FOLFOX, Follow-up CT PET scan done on November 19, 2020 shows there is a mass associated with the colon near the rectosigmoid junction SUV of 18. Diffuse hepatic metastatic disease with SUV ranging from 8-13, subcentimeter pulmonary nodules in the right upper lobe and left upper lobe most likely early pulmonary metastatic disease, this PET scan was compared with CT scan of abdomen done on November 05, [address] PET scan done in May 2020, When compared with CT PET scan from May 2020, it confirmed disease progression as mass near the rectosigmoid junction has increased in size and also progressed on CT PET scan as SUV is 18 compared to 13.6 previously as well as tumor volume is 78 mL compared to 26 mL previously Also severe progression of hepatic metastasis on previous exam only scattered areas of increased activity compared to marked increase in number and size of foci of abnormal activity which are now becoming confluent throughout many areas in the liver. There are 2 subcentimeter pulmonary nodules which are but positive on current study appearing to have enlarged slightly from prior CT PET scan as right upper lobe nodule is 7.4 mm compared to 6 mm before and the left upper lobe is 8.8 mm compared to 5.6 mm before And CEA gone up to 246 on December 17, 2020 compared to 23.7 on September 16, 2020 so she was Switched to FOLFIRI from FOLFOX after follow-up PET scan done on November 19, 2020 showed disease progression Which she started on December 17, 2020 Came for follow-up, denies any specific complaints, no fever chills, no nausea or vomiting, no diarrhea or constipation, no melena or hematochezia, no hemoptysis or hematemesis, no abdominal pain, no jaundice, tolerated first cycle of chemotherapy with FOLFIRI well Medications: Benadryl Allergy 1 Tablet (of 25 mg) Oral daily PRN, busPIRone HCl 1 Tablet (of 10 mg) Oral daily, Citalopram Hydrobromide 1 Tablet (of 20 mg) Oral daily, Enoxaparin Sodium 60 Units (of 300 mg/3mL) Injection b.i.d., Montelukast Sodium 1 Tablet (of 10 mg) Oral daily PRN, Probiotic 1 Capsule Oral daily, Promethazine HCl 1 Tablet (of 25 mg) Oral daily PRN, Zofran 1 Tablet (of 8 mg) Oral PRN Allergies: Bactrim, bananas lemon/[place] Sea food-omega, coffee, fish, garlic, milk , Penicillins, angel, and salmon. Review of Systems: Review of Systems is not available for this patient. Vital Signs: Performed on Dec 29, 2020 12:27 Height - 67.00 in Weight - 135 lbs (LOW) BSA - 1.71 sq.m BMI - 21.14 Temperature - 97.4 F (LOW) Pulse - 101 /min (HIGH) Respiration - 18 /min BP - 105/68 mm(hg) O2 Sat - 98 % Pain - 0 Fatigue - 2 Performance Status: 0 - Fully active, able to carry on all predisease activities without restrictions. (ECOG) Physical Examination: ENMT - No mouth sores, no thrush, no jaundice, Respiratory - Lungs are clear to auscultation , Cardiovascular - Regular rate and rhythm of heart, Gastrointestinal - Soft, bowel sounds present, Extremities - No visible edema. Lab/Imaging: Test performed on Sep 16, 2020 08:19 Sodium 135 mmol/L Potassium 3.7 mmol/L Chloride 102 mmol/L CO2 23 mmol/L Anion Gap 13.7 BUN 7 mg/dL Creatinine 0.6 mg/dL Cr Clearance (Est) 108.1200 mL/min eGFR 105.8 mL/min Glucose 132 mg/dL Osmolality - Calculated 280 mOsm/kg Calcium 8.1 mg/dL Protein, Total 5.8 g/dL Albumin 3.4 g/dL Globulin 2.4 g/dL Bilirubin, Total 0.2 mg/dL ALT (SGPT) 53 U/L AST (SGOT) 48 U/L Alkaline Phosphatase 254 IU/L WBC 9.6 10 3/uL RBC 3.72 10 6/uL HGB 12.5 g/dL HCT 38.5 % MCV 103.5 fL MCH 33.6 pg MCHC 32.5 g/dL RDW 17.2 % Platelet Count 210 10 3/cmm MPV 10.8 fL Neutrophils 6.32 10 3/uL Lymphocytes 1.8 10 3/uL Monocytes 0.9 10 3/uL Eosinophils 0.3 10 3/uL Basophils 0.1 10 3/uL Neutrophil % 65.8 % Lymphocyte % 18.7 % Monocyte % 9.7 % Eosinophil % 3.5 % Basophils % 0.6 % NRBC % 0 % CEA 23.7 ng/mL Test performed on Sep 02, 2020 09:00 Ferritin 424 ng/mL Iron 119 mcg/dL Magnesium 2.1 mg/dL Iron Binding Capacity (TIBC) 289 mcg/dl % Iron Saturation 41.1 % UIBC 170 mcg/dL Test performed on Jul 23, 2020 07:52 FSH 35.2 mIU/mL Impression: Metastatic colorectal cancer per colonoscopy done on March 08, 2020 confirmed adenocarcinoma and molecular profiling showed MMR proficient tumor, negative for KRAS and NRAS mutation but positive for BRAF V[address] scan of chest abdomen pelvis done on March 06, 2020 showed numerous low to intermediate density hepatic masses, mass within the right lobe measured 5.6 cm in transverse dimension. Nonspecific decreased attenuation noted in the periphery of spleen. And asymmetric thickening of the wall of the rectosigmoid colon. A lymph node near the segment of colon appears abnormally enlarged measuring 8.4 mm There is a fusion of T12 and L1 level. Left leg DVT confirmed by venous Doppler study done on March 06, 2020, initially treated with Eliquis, then patient was admitted [facility] on April 02, 2020, for which she was transferred to [facility] in [facility] with mental status confusion due to multiple area of embolic and ischemic stroke seen in the right occipital region and bilateral cerebellar region per MRI scan done and on April 02, 2020 she underwent embolectomy of basilar artery. And was started on Lovenox 60 mg subcu twice daily and concluded Eliquis failure. Anxiety/depression Started on systemic chemotherapy with FOLFOX by Dr. Evelio Ren in [place] and completed a second cycle on April 12, 2020. She has now completed a total of 9 cycles of the FOLFOX and she is tolerating it well. She did require dose reduction with cycle 5 due to worsening peripheral neuropathy, increased diarrhea and mouth sores. Since that reduction, she has tolerated treatment well. She had follow-up PET/CT on June 28, 2020 which reported her rectal mass at 4.8 x 2.8 cm with an SUV of 13.6. There were presacral and perirectal nodes and subcentimeter size and too small to characterize. Multifocal metastatic disease was present but most lesions did not demonstrate activity greater than that of hepatic background but several lesions were FDG positive. An index lesion in the posterior segment 6 measures 3.7 x 4.0 cm with an aphthous SUV of 4.7 and significant central necrosis. It is noted that the breast parenchyma and axillary lymph node uptake bilaterally was unremarkable. She reports she has never had a mammogram. There was reactive bone marrow uptake presumed from recent Neulasta therapy. She continues with modified FOLFOX. Follow-up CT PET scan done on November 19, 2020 showed disease progression in the rectosigmoid junction mass which has increased in size as well as SUV now 18 compared to 13.6 in May 2020 and worsening of diffuse hepatic metastatic disease, and subcentimeter pulmonary nodules in the upper lobes also has slightly increased and FDG positive, her chemotherapy was changed to FOLFIRI from FOLFOX Plan: Discussed with patient regarding her labs white blood count 6.6 hemoglobin of 9.1g hematocrit 28.7 platelets 320,000 CMP within normal limits except AST 54 Clinically, patient doing well with no new signs symptom suggestive of disease progression, tolerated first cycle of chemotherapy with FOLFIRI well, will proceed with cycle #2 with FOLFIRI and then she will return to clinic in 2 weeks with CBC CMP and CEA As far as anemia is concerned her iron studies were within normal range so could be due to anemia of chronic disease/malignancy, will continue to monitor and consider blood transfusion if is less than 8 g Signed By: Lucian Carson M.D. <<Signature on File>>
[2020-12-31] MEDS: LORazepam 2 mg/mL INJ 1 mL 0.5 MG IV (12:40)
[2020-12-31] MEDS: sodium chloride 0.9% 1,000 ML 999 ML IV (12:41)
[2021-01-12 12:12] LABS: Basophils % 0.6 %; Eosinophils # 0.2 10^3/uL (0.0-0.8); Eosinophils % 2.9 %; Hematocrit 28.5 % (37.0-47.0); Lymphocytes # 1.6 10^3/uL (0.8-4.8); Lymphocytes % 22.6 %; Mean Corpuscular HGB Conc 31.6 g/dL (30.0-36.0); Mean Corpuscular Hemoglobin 30.5 pg (28.0-34.0); Mean Corpuscular Volume 96.6 fl (81-99); Mean Platelet Volume 9.4 fL (7.4-10.4); Monocytes # 0.6 10^3/uL (0.2-0.9); Monocytes % 8.7 %; Neutrophils # 4.44 10^3/uL (1.8-7.7); Neutrophils % 64.8 %; Nucleated Red Blood Cells % 0 %; Platelet Count 268 10^3/cmm (130-400); Red Blood Count 2.95 10^6/uL (4.1-5.3); Red Cell Distribution Width 12.9 % (12.1-15.1); White Blood Count 6.9 10^3/uL (4.0-10.0)
[2021-01-12 12:47] LABS: Carcinoembryonic Antigen 248.1 ng/mL (0.0-4.7)
[2021-01-12 12:58] LABS: Alanine Aminotransferase 17 U/L (0-33); Albumin Level 3.5 g/dL (3.5-5.2); Alkaline Phosphatase 230 IU/L (35-105); Anion Gap 15.9 (5-19); Aspartate Amino Transferase 32 U/L (0-32); Blood Urea Nitrogen 9 mg/dL (6-20); Calcium 8.6 mg/dL (8.5-10.5); Carbon Dioxide 23 mmol/L (22-29); Chloride 104 mmol/L (98-107); Globulin 2.5 g/dL (1.3-4.6); Glomerular Filtration Rate 88.2 mL/min (90-130); Glucose 113 mg/dL (65-115); Osmolality Calculated 287 mOsm/kg (285-295); Potassium 3.9 mmol/L (3.5-5.1); Sodium 139 mmol/L (136-145); Total Bilirubin 0.2 mg/dL (0.15-1.2)
--- NOTE | 2021-01-12 14:22 | ONC FU_ITS ---
Dr. Carson follow up note Patient: Ailyn Lobato Unit #: [id number]: 1970 Dicatated By: Lucian Carson M.D.Date of Visit:Jan 12, 2021 Onc Med Follow-up/Prog Note History of Present Illness: Mrs. Lobato is a 50-year-old female with who was diagnosed with colorectal cancer per colonoscopy done on March 08, 2020 at [facility] in [facility]. She reports he went to emergency room with 6-week history of progressive worsening of right upper quadrant pain and nausea along with history of off and on bleeding per rectum over 6-month duration. She states she thought her right upper quadrant pain was due to gallbladder. She underwent CT scan of chest abdomen pelvis on March 06, 2020 which showed asymmetric thickening of the wall of rectosigmoid colon and low to intermediate density hepatic masses in the liver a mass within the right lobe measured 5.6 cm in transverse dimension. Pancreas normal, adrenal normal and increased density within the left common femoral vein and left superficial femoral vein. A venous doppler done on March 06, 2020 confirmed left popliteal to common femoral DVT. She was started on Lovenox and later transitioned to Eliquis. Mrs Lobato was diagnosed with metastatic colorectal cancer with liver mets at [facility] on . 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 Mrs Murcia was seen by Dr. Dae Ren, medical oncologist. He recommended systemic chemotherapy with FOLFOX every 2 weeks. However on April 02, 2020, she went to back to [facility] ER with confusion and mental status changes of 1 week duration and MRI scan of the brain was done with a concern for metastatic disease but it did not show any evidence of brain mets but showed multiple areas of embolic and ischemic stroke particular to the right occipital region and bilateral cerebellar region. As there was no neurology coverage, she was transferred to [facility] in [facility]. 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 On April 02, 2020, she underwent embolectomy of basilar artery and patient was discharged home on April 05, 2020 with Lovenox 60 mg twice a day and also concluded Eliquis failure. Mrs Moreland was seen by Dr. Evelio Ren and she was started on systemic chemotherapy with FOLFOX and second cycle of chemotherapy was completed on April 12, 2020. Due to her convenience as patient lives in [place], [place], she has decided to switch her care to [place]. She is completed 5 cycles of FOLFOX. She is required growth factor support for chemotherapy-induced neutropenia. She continues with Lovenox. Follow-up CT PET scan done after six cycles of modified FOLFOX, on June 28, 2020 showed there is a 4.4 x 2.8 cm rectal mass with SUV of 13.6 with presacral perirectal nodes are subcentimeter in size and too small to characterize. Multifocal hepatic metastatic disease is present most lesions do not demonstrate activity greater than that of hepatic background but several lesions are FDG positive the index lesion in the posterior segment four measuring 3.7 x 4.0 cm with SUV of 4.7 compared to 5.[address] scan done in February 2020, with significant central necrosis. She continues with FOLFOX with growth factor support. She received Injectafer on July 01, 2020 for oral iron intolerant documented iron deficiency. Her iron saturation on June 02, 2020 was 6.5% her ferritin was 66 and iron level was 23. Her hemoglobin at that time was 9.3. Her second dose of Injectafer had been delayed due to increment weather. She received her second dose on 07/23/2020. After 12 cycles of modified dose FOLFOX, Follow-up CT PET scan done on November 19, 2020 shows there is a mass associated with the colon near the rectosigmoid junction SUV of 18. Diffuse hepatic metastatic disease with SUV ranging from 8-13, subcentimeter pulmonary nodules in the right upper lobe and left upper lobe most likely early pulmonary metastatic disease, this PET scan was compared with CT scan of abdomen done on November 05, [address] PET scan done in May 2020, When compared with CT PET scan from May 2020, it confirmed disease progression as mass near the rectosigmoid junction has increased in size and also progressed on CT PET scan as SUV is 18 compared to 13.6 previously as well as tumor volume is 78 mL compared to 26 mL previously Also severe progression of hepatic metastasis on previous exam only scattered areas of increased activity compared to marked increase in number and size of foci of abnormal activity which are now becoming confluent throughout many areas in the liver. There are 2 subcentimeter pulmonary nodules which are but positive on current study appearing to have enlarged slightly from prior CT PET scan as right upper lobe nodule is 7.4 mm compared to 6 mm before and the left upper lobe is 8.8 mm compared to 5.6 mm before And CEA gone up to 246 on December 17, 2020 compared to 23.7 on September 16, 2020 so she was Switched to FOLFIRI from FOLFOX after follow-up PET scan done on November 19, 2020 showed disease progression Which she started on December 17, 2020 Came for follow-up, denies any specific complaints, no fever chills, no nausea or vomiting, no diarrhea constipation, as far as chemotherapy related nausea is concerned as per patient antianxiety does help her. No abdominal pain, no jaundice, no melena or hematochezia, no hemoptysis hematemesis, no peripheral neuropathy, tolerating FOLFIRI well otherwise Medications: Benadryl Allergy 1 Tablet (of 25 mg) Oral daily PRN, busPIRone HCl 1 Tablet (of 10 mg) Oral daily, Citalopram Hydrobromide 1 Tablet (of 20 mg) Oral daily, Enoxaparin Sodium 60 Units (of 300 mg/3mL) Injection b.i.d., Montelukast Sodium 1 Tablet (of 10 mg) Oral daily PRN, Probiotic 1 Capsule Oral daily, Promethazine HCl 1 Tablet (of 25 mg) Oral daily PRN, Zofran 1 Tablet (of 8 mg) Oral PRN Allergies: Bactrim, bananas lemon/jamul Sea food-omega, coffee, fish, garlic, milk , Penicillins, angel, and salmon. Review of Systems: Review of Systems is not available for this patient. Vital Signs: Performed on Jan 12, 2021 13:10 Height - 67.00 in Temperature - 97.9 F (LOW) Pulse - 96 /min Respiration - 18 /min BP - 110/63 mm(hg) O2 Sat - 98 % Performance Status: 0 - Fully active, able to carry on all predisease activities without restrictions. (ECOG) Physical Examination: ENMT - No mouth sores, no thrush, no jaundice, Respiratory - Lungs are clear to auscultation, Cardiovascular - Regular rate and rhythm of heart, Abdomen - Soft, bowel sounds present, Extremities - No visible edema. Lab/Imaging: Test performed on Sep 16, 2020 08:19 Sodium 135 mmol/L Potassium 3.7 mmol/L Chloride 102 mmol/L CO2 23 mmol/L Anion Gap 13.7 BUN 7 mg/dL Creatinine 0.6 mg/dL Cr Clearance (Est) 108.1200 mL/min eGFR 105.8 mL/min Glucose 132 mg/dL Osmolality - Calculated 280 mOsm/kg Calcium 8.1 mg/dL Protein, Total 5.8 g/dL Albumin 3.4 g/dL Globulin 2.4 g/dL Bilirubin, Total 0.2 mg/dL ALT (SGPT) 53 U/L AST (SGOT) 48 U/L Alkaline Phosphatase 254 IU/L WBC 9.6 10 3/uL RBC 3.72 10 6/uL HGB 12.5 g/dL HCT 38.5 % MCV 103.5 fL MCH 33.6 pg MCHC 32.5 g/dL RDW 17.2 % Platelet Count 210 10 3/cmm MPV 10.8 fL Neutrophils 6.32 10 3/uL Lymphocytes 1.8 10 3/uL Monocytes 0.9 10 3/uL Eosinophils 0.3 10 3/uL Basophils 0.1 10 3/uL Neutrophil % 65.8 % Lymphocyte % 18.7 % Monocyte % 9.7 % Eosinophil % 3.5 % Basophils % 0.6 % NRBC % 0 % CEA 23.7 ng/mL Test performed on Sep 02, 2020 09:00 Ferritin 424 ng/mL Iron 119 mcg/dL Magnesium 2.1 mg/dL Iron Binding Capacity (TIBC) 289 mcg/dl % Iron Saturation 41.1 % UIBC 170 mcg/dL Test performed on Jul 23, 2020 07:52 FSH 35.2 mIU/mL Impression: Metastatic colorectal cancer per colonoscopy done on March 08, 2020 confirmed adenocarcinoma and molecular profiling showed MMR proficient tumor, negative for KRAS and NRAS mutation but positive for BRAF V[address] scan of chest abdomen pelvis done on March 06, 2020 showed numerous low to intermediate density hepatic masses, mass within the right lobe measured 5.6 cm in transverse dimension. Nonspecific decreased attenuation noted in the periphery of spleen. And asymmetric thickening of the wall of the rectosigmoid colon. A lymph node near the segment of colon appears abnormally enlarged measuring 8.4 mm There is a fusion of T12 and L1 level. Left leg DVT confirmed by venous Doppler study done on March 06, 2020, initially treated with Eliquis, then patient was admitted [facility] on April 02, 2020, for which she was transferred to [facility] in [facility] with mental status confusion due to multiple area of embolic and ischemic stroke seen in the right occipital region and bilateral cerebellar region per MRI scan done and on April 02, 2020 she underwent embolectomy of basilar artery. And was started on Lovenox 60 mg subcu twice daily and concluded Eliquis failure. Anxiety/depression Started on systemic chemotherapy with FOLFOX by Dr. Evelio Ren in [place] and completed a second cycle on April 12, 2020. She has now completed a total of 9 cycles of the FOLFOX and she is tolerating it well. She did require dose reduction with cycle 5 due to worsening peripheral neuropathy, increased diarrhea and mouth sores. Since that reduction, she has tolerated treatment well. She had follow-up PET/CT on June 28, 2020 which reported her rectal mass at 4.8 x 2.8 cm with an SUV of 13.6. There were presacral and perirectal nodes and subcentimeter size and too small to characterize. Multifocal metastatic disease was present but most lesions did not demonstrate activity greater than that of hepatic background but several lesions were FDG positive. An index lesion in the posterior segment 6 measures 3.7 x 4.0 cm with an aphthous SUV of 4.7 and significant central necrosis. It is noted that the breast parenchyma and axillary lymph node uptake bilaterally was unremarkable. She reports she has never had a mammogram. There was reactive bone marrow uptake presumed from recent Neulasta therapy. She continues with modified FOLFOX. Follow-up CT PET scan done on November 19, 2020 showed disease progression in the rectosigmoid junction mass which has increased in size as well as SUV now 18 compared to 13.6 in May 2020 and worsening of diffuse hepatic metastatic disease, and subcentimeter pulmonary nodules in the upper lobes also has slightly increased and FDG positive, her chemotherapy was changed to FOLFIRI from FOLFOX Plan: Discussed with patient regarding her labs white blood count 6.9 hemoglobin 9 g hematocrit 28.5 platelets 268,000 CMP within normal limit except alk phos 230 CEA 248 compared to 246 on December 17, 2020 Clinically, patient is doing well with no new signs symptom, tolerating FOLFIRI well, will proceed with next cycle today and then she will return to clinic in 2 weeks with CBC CMP As, her recent CT PET scan shows major site of metastatic disease liver and 2 subcentimeter pulmonary nodules along with primary lesion the colon near the rectosigmoid junction, we will refer her to [place] for internal radiation therapy with SIR-Spheres Y 90 Resin microspheres to the liver and will also refer her to Dr. Mathew, colorectal surgeon in [place] for evaluation for resection of rectosigmoid primary. Patient return to clinic in 2 weeks with CBC CMP if reasonable, for next cycle of chemotherapy with FOLFIRI while being evaluated for selective internal radiation therapy with Y 90 resin microspheres to the liver Signed By: Lucian Carson M.D. <<Signature on File>>
[2021-01-12] MEDS: LORazepam 2 mg/mL INJ 1 mL 0.5 MG IV (14:26)
[2021-01-12] MEDS: atropine 1 mg/mL SDV 1 mL 0.4 MG IV (14:27)
[2021-01-12] MEDS: palonosetron 0.25 mg/5 mL SDV IVP (14:28)
[2021-01-12] MEDS: OLANZapine 10 mg TABLET PO (16:22)
[2021-01-14] MEDS: sodium chloride 0.9% 1,000 ML 999 ML IV (14:25)
[2021-01-14] MEDS: OLANZapine 10 mg TABLET PO (14:25)
[2021-01-26] MEDS: enoxaparin 60 mg/0.6 mL Syringe SUBCUT (08:00)
[2021-01-26 08:24] LABS: Basophils % 0.6 %; Eosinophils # 0.2 10^3/uL (0.0-0.8); Eosinophils % 3.3 %; Hematocrit 28.2 % (37.0-47.0); Hemoglobin 8.7 g/dL (11.5-15.3); Lymphocytes # 1.4 10^3/uL (0.8-4.8); Lymphocytes % 21.9 %; Mean Corpuscular HGB Conc 30.9 g/dL (30.0-36.0); Mean Corpuscular Hemoglobin 29.9 pg (28.0-34.0); Mean Corpuscular Volume 96.9 fl (81-99); Mean Platelet Volume 9.8 fL (7.4-10.4); Monocytes # 0.6 10^3/uL (0.2-0.9); Monocytes % 8.7 %; Neutrophils # 4.09 10^3/uL (1.8-7.7); Neutrophils % 65.2 %; Nucleated Red Blood Cells % 0 %; Platelet Count 282 10^3/cmm (130-400); Red Blood Count 2.91 10^6/uL (4.1-5.3); Red Cell Distribution Width 14.1 % (12.1-15.1); White Blood Count 6.3 10^3/uL (4.0-10.0)
[2021-01-26 08:55] LABS: Alanine Aminotransferase 23 U/L (0-33); Albumin Level 3.7 g/dL (3.5-5.2); Alkaline Phosphatase 232 IU/L (35-105); Aspartate Amino Transferase 45 U/L (0-32); Blood Urea Nitrogen 11 mg/dL (6-20); Calcium 8.7 mg/dL (8.5-10.5); Carbon Dioxide 25 mmol/L (22-29); Chloride 102 mmol/L (98-107); Globulin 2.5 g/dL (1.3-4.6); Glomerular Filtration Rate 88.2 mL/min (90-130); Glucose 134 mg/dL (65-115); Osmolality Calculated 283 mOsm/kg (285-295); Sodium 136 mmol/L (136-145); Total Bilirubin 0.2 mg/dL (0.15-1.2); Total Protein 6.2 g/dL (6.6-8.7)
[2021-01-27] MEDS: atropine 1 mg/mL SDV 1 mL 0.4 MG IV (10:15)
[2021-01-27] MEDS: sodium chloride 0.9% 250 ML 75 ML IV (10:15)
[2021-01-27] MEDS: palonosetron 0.25 mg/5 mL SDV IV (10:16)
[2021-01-27 10:43] LABS: Ferritin 36 ng/mL (15-150); Iron 42 ug/dL (37-145); Percent Saturation 12.3 % (20-50); Total Iron Binding Capacity 341 mcg/dl; Unsaturated Iron Binding 299 ug/dL (112-347)
[2021-01-27] MEDS: OLANZapine 10 mg TABLET PO (11:00)
[2021-01-27] MEDS: LORazepam 2 mg/mL INJ 1 mL 0.5 MG IV (12:15)
--- NOTE | 2021-01-27 18:05 | ONC FU_ITS ---
Dr. Carson follow up note Patient: Ailyn Lobato Unit #: [id number]: 1970 Dicatated By: Lucian Carson M.D.Date of Visit:Jan 27, 2021 Onc Med Follow-up/Prog Note History of Present Illness: Mrs. Lobato is a 50-year-old female with who was diagnosed with colorectal cancer per colonoscopy done on March 08, 2020 at [facility] in [facility]. She reports he went to emergency room with 6-week history of progressive worsening of right upper quadrant pain and nausea along with history of off and on bleeding per rectum over 6-month duration. She states she thought her right upper quadrant pain was due to gallbladder. She underwent CT scan of chest abdomen pelvis on March 06, 2020 which showed asymmetric thickening of the wall of rectosigmoid colon and low to intermediate density hepatic masses in the liver a mass within the right lobe measured 5.6 cm in transverse dimension. Pancreas normal, adrenal normal and increased density within the left common femoral vein and left superficial femoral vein. A venous doppler done on March 06, 2020 confirmed left popliteal to common femoral DVT. She was started on Lovenox and later transitioned to Eliquis. Mrs Lobato was diagnosed with metastatic colorectal cancer with liver mets at [facility] on . 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 Mrs Murcia was seen by Dr. Dae Ren, medical oncologist. He recommended systemic chemotherapy with FOLFOX every 2 weeks. However on April 02, 2020, she went to back to [facility] ER with confusion and mental status changes of 1 week duration and MRI scan of the brain was done with a concern for metastatic disease but it did not show any evidence of brain mets but showed multiple areas of embolic and ischemic stroke particular to the right occipital region and bilateral cerebellar region. As there was no neurology coverage, she was transferred to [facility] in [facility]. 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 On April 02, 2020, she underwent embolectomy of basilar artery and patient was discharged home on April 05, 2020 with Lovenox 60 mg twice a day and also concluded Eliquis failure. Mrs Moreland was seen by Dr. Evelio Ren and she was started on systemic chemotherapy with FOLFOX and second cycle of chemotherapy was completed on April 12, 2020. Due to her convenience as patient lives in [place], [place], she has decided to switch her care to [place]. She is completed 5 cycles of FOLFOX. She is required growth factor support for chemotherapy-induced neutropenia. She continues with Lovenox. Follow-up CT PET scan done after six cycles of modified FOLFOX, on June 28, 2020 showed there is a 4.4 x 2.8 cm rectal mass with SUV of 13.6 with presacral perirectal nodes are subcentimeter in size and too small to characterize. Multifocal hepatic metastatic disease is present most lesions do not demonstrate activity greater than that of hepatic background but several lesions are FDG positive the index lesion in the posterior segment four measuring 3.7 x 4.0 cm with SUV of 4.7 compared to 5.[address] scan done in February 2020, with significant central necrosis. She continues with FOLFOX with growth factor support. She received Injectafer on July 01, 2020 for oral iron intolerant documented iron deficiency. Her iron saturation on June 02, 2020 was 6.5% her ferritin was 66 and iron level was 23. Her hemoglobin at that time was 9.3. Her second dose of Injectafer had been delayed due to increment weather. She received her second dose on 07/23/2020. After 12 cycles of modified dose FOLFOX, Follow-up CT PET scan done on November 19, 2020 shows there is a mass associated with the colon near the rectosigmoid junction SUV of 18. Diffuse hepatic metastatic disease with SUV ranging from 8-13, subcentimeter pulmonary nodules in the right upper lobe and left upper lobe most likely early pulmonary metastatic disease, this PET scan was compared with CT scan of abdomen done on November 05, [address] PET scan done in May 2020, When compared with CT PET scan from May 2020, it confirmed disease progression as mass near the rectosigmoid junction has increased in size and also progressed on CT PET scan as SUV is 18 compared to 13.6 previously as well as tumor volume is 78 mL compared to 26 mL previously Also severe progression of hepatic metastasis on previous exam only scattered areas of increased activity compared to marked increase in number and size of foci of abnormal activity which are now becoming confluent throughout many areas in the liver. There are 2 subcentimeter pulmonary nodules which are but positive on current study appearing to have enlarged slightly from prior CT PET scan as right upper lobe nodule is 7.4 mm compared to 6 mm before and the left upper lobe is 8.8 mm compared to 5.6 mm before And CEA gone up to 246 on December 17, 2020 compared to 23.7 on September 16, 2020 so she was Switched to FOLFIRI from FOLFOX after follow-up PET scan done on November 19, 2020 showed disease progression Which she started on December 17, 2020 Came for follow-up, denies any specific complaints, no fever chills, no nausea or vomiting, no diarrhea constipation, no abdominal pain or fullness, as per patient she has seen Dr. Paiz in [place] for selective internal radiation therapy with SIR Sphere Y 90 resin microspheres and treatment is under consideration in a week. Patient is tolerating her systemic therapy with FOLFIRI reasonably well Medications: Benadryl Allergy 1 Tablet (of 25 mg) Oral daily PRN, busPIRone HCl 1 Tablet (of 10 mg) Oral daily, Citalopram Hydrobromide 1 Tablet (of 20 mg) Oral daily, Enoxaparin Sodium 60 Units (of 300 mg/3mL) Injection b.i.d., Montelukast Sodium 1 Tablet (of 10 mg) Oral daily PRN, Probiotic 1 Capsule Oral daily, Promethazine HCl 1 Tablet (of 25 mg) Oral daily PRN, Zofran 1 Tablet (of 8 mg) Oral PRN Allergies: Bactrim, bananas lemon/chemehuevi Sea food-omega, coffee, fish, garlic, milk , Penicillins, angel, and salmon. Review of Systems: Review of Systems is not available for this patient. Vital Signs: Performed on Jan 27, 2021 09:48 Height - 67.00 in Weight - 137.4 lbs (HIGH) BSA - 1.72 sq.m BMI - 21.52 Temperature - 98 F (LOW) Pulse - 88 /min Respiration - 18 /min BP - 108/72 mm(hg) O2 Sat - 98 % Pain - 0 Fatigue - 0 Performance Status: 0 - Fully active, able to carry on all predisease activities without restrictions. (ECOG) Physical Examination: ENMT - No mouth sores, no thrush, no jaundice, Respiratory - Lungs are clear to auscultation, Cardiovascular - Regular rate and rhythm of heart, Abdomen - Soft, bowel sounds present, Extremities - No visible edema. Lab/Imaging: Test performed on Sep 16, 2020 08:19 Sodium 135 mmol/L Potassium 3.7 mmol/L Chloride 102 mmol/L CO2 23 mmol/L Anion Gap 13.7 BUN 7 mg/dL Creatinine 0.6 mg/dL Cr Clearance (Est) 108.1200 mL/min eGFR 105.8 mL/min Glucose 132 mg/dL Osmolality - Calculated 280 mOsm/kg Calcium 8.1 mg/dL Protein, Total 5.8 g/dL Albumin 3.4 g/dL Globulin 2.4 g/dL Bilirubin, Total 0.2 mg/dL ALT (SGPT) 53 U/L AST (SGOT) 48 U/L Alkaline Phosphatase 254 IU/L WBC 9.6 10 3/uL RBC 3.72 10 6/uL HGB 12.5 g/dL HCT 38.5 % MCV 103.5 fL MCH 33.6 pg MCHC 32.5 g/dL RDW 17.2 % Platelet Count 210 10 3/cmm MPV 10.8 fL Neutrophils 6.32 10 3/uL Lymphocytes 1.8 10 3/uL Monocytes 0.9 10 3/uL Eosinophils 0.3 10 3/uL Basophils 0.1 10 3/uL Neutrophil % 65.8 % Lymphocyte % 18.7 % Monocyte % 9.7 % Eosinophil % 3.5 % Basophils % 0.6 % NRBC % 0 % CEA 23.7 ng/mL Test performed on Sep 02, 2020 09:00 Ferritin 424 ng/mL Iron 119 mcg/dL Magnesium 2.1 mg/dL Iron Binding Capacity (TIBC) 289 mcg/dl % Iron Saturation 41.1 % UIBC 170 mcg/dL Impression: Metastatic colorectal cancer per colonoscopy done on March 08, 2020 confirmed adenocarcinoma and molecular profiling showed MMR proficient tumor, negative for KRAS and NRAS mutation but positive for BRAF V[address] scan of chest abdomen pelvis done on March 06, 2020 showed numerous low to intermediate density hepatic masses, mass within the right lobe measured 5.6 cm in transverse dimension. Nonspecific decreased attenuation noted in the periphery of spleen. And asymmetric thickening of the wall of the rectosigmoid colon. A lymph node near the segment of colon appears abnormally enlarged measuring 8.4 mm There is a fusion of T12 and L1 level. Left leg DVT confirmed by venous Doppler study done on March 06, 2020, initially treated with Eliquis, then patient was admitted [facility] on April 02, 2020, for which she was transferred to [facility] in [facility] with mental status confusion due to multiple area of embolic and ischemic stroke seen in the right occipital region and bilateral cerebellar region per MRI scan done and on April 02, 2020 she underwent embolectomy of basilar artery. And was started on Lovenox 60 mg subcu twice daily and concluded Eliquis failure. Anxiety/depression Started on systemic chemotherapy with FOLFOX by Dr. Evelio Ren in [place] and completed a second cycle on April 12, 2020. She has now completed a total of 9 cycles of the FOLFOX and she is tolerating it well. She did require dose reduction with cycle 5 due to worsening peripheral neuropathy, increased diarrhea and mouth sores. Since that reduction, she has tolerated treatment well. She had follow-up PET/CT on June 28, 2020 which reported her rectal mass at 4.8 x 2.8 cm with an SUV of 13.6. There were presacral and perirectal nodes and subcentimeter size and too small to characterize. Multifocal metastatic disease was present but most lesions did not demonstrate activity greater than that of hepatic background but several lesions were FDG positive. An index lesion in the posterior segment 6 measures 3.7 x 4.0 cm with an aphthous SUV of 4.7 and significant central necrosis. It is noted that the breast parenchyma and axillary lymph node uptake bilaterally was unremarkable. She reports she has never had a mammogram. There was reactive bone marrow uptake presumed from recent Neulasta therapy. She continues with modified FOLFOX. Follow-up CT PET scan done on November 19, 2020 showed disease progression in the rectosigmoid junction mass which has increased in size as well as SUV now 18 compared to 13.6 in May 2020 and worsening of diffuse hepatic metastatic disease, and subcentimeter pulmonary nodules in the upper lobes also has slightly increased and FDG positive, her chemotherapy was changed to FOLFIRI from FOLFOX Plan: Discussed with patient regarding her labs white blood count 6.3 hemoglobin 8.7 hematocrit 28.2 platelets 282,000 CMP within normal limits except AST 45 alk phos 232 and her CEA was 248 on January 12, 2021 compared to 246 on December 17, 2020 Clinically, patient is doing reasonably well, will proceed with next cycle of systemic therapy with FOLFIRI today and then she will return to clinic in 2 weeks with CBC CMP,. In the meantime, patient has seen Dr. Paiz for selective internal radiation therapy with Y 90 resin microspheres to the liver, as per patient treatment is under consideration probably next week, and she was also referred to Dr. Silver for possible sigmoid colon primary resection but it will be done few weeks after selective internal radiation therapy to the liver As per his iron deficiency anemia is concerned, will consider anemia work-up and if it shows iron deficiency, will consider parenteral iron Return to clinic in 2 weeks with CBC CMP Signed By: Lucian Carson M.D. <<Signature on File>>
== END 2021-01-27 23:59 | disposition home or self-care (01) ==
LOC: ONCMED 05:42
PROVIDERS: PCP Nurse Practitioner Family; Visit Provider Internal Medicine Hematology & Oncology
DX: Z51.11 Encounter for antineoplastic chemotherapy (principal); C19 Malignant neoplasm of rectosigmoid junction; C78.7 Secondary malignant neoplasm of liver and intrahepatic bile duct; Z86.718 Personal history of other venous thrombosis and embolism; Z79.01 Long term (current) use of anticoagulants; F41.9 Anxiety disorder, unspecified; F32.9 Major depressive disorder, single episode, unspecified; Z79.899 Other long term (current) drug therapy
CPT/HCPCS: 36415; 36591; 80053; 82378; 82728; 83540; 83550; 85025; 96360; 96361; 96367; 96368; 96372; 96374; 96375; 96413; 96415; 96416; 99215; J0461; J0640; J1100; J1650; J2060; J2469; J7030; J7050; J9190; J9206

== ENCOUNTER 2021-02-12 05:47 | Outpatient (RCR) | payer OTHER, SELFPAY ==
[2021-01-29] MEDS: OLANZapine 10 mg TABLET PO (10:00)
[2021-01-29] MEDS: ferric carboxy (IVPB) 750 MG in sodium chloride 0.9% (100 ml) 100 ML 460 MG IV (10:08)
[2021-01-29] MEDS: sodium chloride 0.9% 1,000 ML 999 ML IV (10:34)
[2021-02-09 15:21] LABS: Alanine Aminotransferase 22 U/L (0-33); Albumin Level 3.4 g/dL (3.5-5.2); Alkaline Phosphatase 204 IU/L (35-105); Aspartate Amino Transferase 31 U/L (0-32); Blood Urea Nitrogen 8 mg/dL (6-20); Calcium 8.1 mg/dL (8.5-10.5); Carbon Dioxide 22 mmol/L (22-29); Chloride 105 mmol/L (98-107); Globulin 2.4 g/dL (1.3-4.6); Glomerular Filtration Rate 75.6 mL/min (90-130); Glucose 143 mg/dL (65-115); Osmolality Calculated 285 mOsm/kg (285-295); Sodium 137 mmol/L (136-145); Total Bilirubin 0.2 mg/dL (0.15-1.2); Total Protein 5.8 g/dL (6.6-8.7)
[2021-02-09 15:27] LABS: Basophils % 0.5 %; Eosinophils # 0.3 10^3/uL (0.0-0.8); Eosinophils % 4.5 %; Hematocrit 27.7 % (37.0-47.0); Hemoglobin 8.4 g/dL (11.5-15.3); Lymphocytes # 1.4 10^3/uL (0.8-4.8); Lymphocytes % 19.6 %; Mean Corpuscular HGB Conc 30.3 g/dL (30.0-36.0); Mean Corpuscular Hemoglobin 31.2 pg (28.0-34.0); Mean Platelet Volume 9.9 fL (7.4-10.4); Monocytes # 0.5 10^3/uL (0.2-0.9); Monocytes % 7.2 %; Neutrophils # 4.98 10^3/uL (1.8-7.7); Neutrophils % 67.8 %; Nucleated Red Blood Cells % 0 %; Platelet Count 274 10^3/cmm (130-400); Red Blood Count 2.69 10^6/uL (4.1-5.3); Red Cell Distribution Width 18.4 % (12.1-15.1); White Blood Count 7.4 10^3/uL (4.0-10.0)
[2021-02-10] MEDS: sodium chloride 0.9% 250 ML 75 ML IV (10:13)
[2021-02-10] MEDS: OLANZapine 10 mg TABLET PO (10:15)
[2021-02-10] MEDS: palonosetron 0.25 mg/5 mL SDV IVP (10:15)
--- NOTE | 2021-02-10 17:34 | ONC FU_ITS ---
Dr. Carson follow up note Patient: Ailyn Lobato Unit #: [id number]: [id number] Dicatated By: Lucian Carson M.D.Date of Visit:Feb 10, 2021 Onc Med Follow-up/Prog Note History of Present Illness: Mrs. Lobato is a 50-year-old female with who was diagnosed with colorectal cancer per colonoscopy done on March 08, [address] [facility] in [facility]. She reports he went to emergency room with 6-week history of progressive worsening of right upper quadrant pain and nausea along with history of off and on bleeding per rectum over 6-month duration. She states she thought her right upper quadrant pain was due to gallbladder. She underwent CT scan of chest abdomen pelvis on March 06, 2020 which showed asymmetric thickening of the wall of rectosigmoid colon and low to intermediate density hepatic masses in the liver a mass within the right lobe measured 5.6 cm in transverse dimension. Pancreas normal, adrenal normal and increased density within the left common femoral vein and left superficial femoral vein. A venous doppler done on March 06, 2020 confirmed left popliteal to common femoral DVT. She was started on Lovenox and later transitioned to Eliquis. Mrs Lobato was diagnosed with metastatic colorectal cancer with liver mets at [facility] on . 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 Mrs Murcia was seen by Dr. Dae Ren, medical oncologist. He recommended systemic chemotherapy with FOLFOX every 2 weeks. However on April 02, 2020, she went to back to [facility] ER with confusion and mental status changes of 1 week duration and MRI scan of the brain was done with a concern for metastatic disease but it did not show any evidence of brain mets but showed multiple areas of embolic and ischemic stroke particular to the right occipital region and bilateral cerebellar region. As there was no neurology coverage, she was transferred to [facility] in [facility]. 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 On April 02, 2020, she underwent embolectomy of basilar artery and patient was discharged home on April 05, 2020 with Lovenox 60 mg twice a day and also concluded Eliquis failure. Mrs Moreland was seen by Dr. Evelio Ren and she was started on systemic chemotherapy with FOLFOX and second cycle of chemotherapy was completed on April 12, 2020. Due to her convenience as patient lives in [place], [place], she has decided to switch her care to [facility]. She is completed 5 cycles of FOLFOX. She is required growth factor support for chemotherapy-induced neutropenia. She continues with Lovenox. Follow-up CT PET scan done after six cycles of modified FOLFOX, on June 28, 2020 showed there is a 4.4 x 2.8 cm rectal mass with SUV of 13.6 with presacral perirectal nodes are subcentimeter in size and too small to characterize. Multifocal hepatic metastatic disease is present most lesions do not demonstrate activity greater than that of hepatic background but several lesions are FDG positive the index lesion in the posterior segment four measuring 3.7 x 4.0 cm with SUV of 4.7 compared to 5.[address] scan done in February 2020, with significant central necrosis. She continues with FOLFOX with growth factor support. She received Injectafer on July 01, 2020 for oral iron intolerant documented iron deficiency. Her iron saturation on June 02, 2020 was 6.5% her ferritin was 66 and iron level was 23. Her hemoglobin at that time was 9.3. Her second dose of Injectafer had been delayed due to increment weather. She received her second dose on 07/23/2020. After 12 cycles of modified dose FOLFOX, Follow-up CT PET scan done on November 19, 2020 shows there is a mass associated with the colon near the rectosigmoid junction SUV of 18. Diffuse hepatic metastatic disease with SUV ranging from 8-13, subcentimeter pulmonary nodules in the right upper lobe and left upper lobe most likely early pulmonary metastatic disease, this PET scan was compared with CT scan of abdomen done on November 05, [address] PET scan done in May 2020, When compared with CT PET scan from May 2020, it confirmed disease progression as mass near the rectosigmoid junction has increased in size and also progressed on CT PET scan as SUV is 18 compared to 13.6 previously as well as tumor volume is 78 mL compared to 26 mL previously Also severe progression of hepatic metastasis on previous exam only scattered areas of increased activity compared to marked increase in number and size of foci of abnormal activity which are now becoming confluent throughout many areas in the liver. There are 2 subcentimeter pulmonary nodules which are but positive on current study appearing to have enlarged slightly from prior CT PET scan as right upper lobe nodule is 7.4 mm compared to 6 mm before and the left upper lobe is 8.8 mm compared to 5.6 mm before And CEA gone up to 246 on December 17, 2020 compared to 23.7 on September 16, 2020 so she was Switched to FOLFIRI from FOLFOX after follow-up PET scan done on November 19, 2020 showed disease progression Which she started on December 17, 2020 Came for follow-up, denies any specific complaints, no fever chills, no nausea or vomiting, no diarrhea or constipation, patient denies any melena or hematochezia or hemoptysis hematemesis, denies any worsening of mild peripheral neuropathy. Patient said she has seen Dr. Paiz recently on February 05, 2021, at that time she underwent liver SPECT/CT MAA mapping for purpose of blood flow mapping and lung shunt determination, prior to treatment with Y 90 SIR-Spheres., Patient has also seen Dr. Mathew on January 26, 2021 for possible sigmoid colon primary resection, as per his note, as there is no reason to intervene surgically at this point so he would wait till there is a break from chemotherapy for 4 to 6 weeks. Medications: Benadryl Allergy 1 Tablet (of 25 mg) Oral daily PRN, busPIRone HCl 1 Tablet (of 10 mg) Oral daily, Citalopram Hydrobromide 1 Tablet (of 20 mg) Oral daily, Enoxaparin Sodium 60 Units (of 300 mg/3mL) Injection b.i.d., Montelukast Sodium 1 Tablet (of 10 mg) Oral daily PRN, Probiotic 1 Capsule Oral daily, Promethazine HCl 1 Tablet (of 25 mg) Oral daily PRN, Zofran 1 Tablet (of 8 mg) Oral PRN Allergies: Bactrim, bananas lemon/grand traverse Sea food-omega, coffee, fish, garlic, milk , Penicillins, angel, and salmon. Review of Systems: Review of Systems is not available for this patient. Vital Signs: Performed on Feb 10, 2021 15:38 Height - 67.00 in Weight - 144.2 lbs (HIGH) BSA - 1.76 sq.m BMI - 22.59 Temperature - 97.6 F (LOW) Pulse - 98 /min Respiration - 18 /min BP - 127/78 mm(hg) Pain - 0 Fatigue - 4 Performance Status: 0 - Fully active, able to carry on all predisease activities without restrictions. (ECOG) Physical Examination: ENMT - No mouth sores, no thrush, no jaundice, Respiratory - Lungs are clear to auscultation, Cardiovascular - Regular rate and rhythm of heart, Abdomen - Soft, bowel sounds present, Extremities - No visible edema. Lab/Imaging: Test performed on Sep 16, 2020 08:19 Sodium 135 mmol/L Potassium 3.7 mmol/L Chloride 102 mmol/L CO2 23 mmol/L Anion Gap 13.7 BUN 7 mg/dL Creatinine 0.6 mg/dL Cr Clearance (Est) 108.1200 mL/min eGFR 105.8 mL/min Glucose 132 mg/dL Osmolality - Calculated 280 mOsm/kg Calcium 8.1 mg/dL Protein, Total 5.8 g/dL Albumin 3.4 g/dL Globulin 2.4 g/dL Bilirubin, Total 0.2 mg/dL ALT (SGPT) 53 U/L AST (SGOT) 48 U/L Alkaline Phosphatase 254 IU/L WBC 9.6 10 3/uL RBC 3.72 10 6/uL HGB 12.5 g/dL HCT 38.5 % MCV 103.5 fL MCH 33.6 pg MCHC 32.5 g/dL RDW 17.2 % Platelet Count 210 10 3/cmm MPV 10.8 fL Neutrophils 6.32 10 3/uL Lymphocytes 1.8 10 3/uL Monocytes 0.9 10 3/uL Eosinophils 0.3 10 3/uL Basophils 0.1 10 3/uL Neutrophil % 65.8 % Lymphocyte % 18.7 % Monocyte % 9.7 % Eosinophil % 3.5 % Basophils % 0.6 % NRBC % 0 % CEA 23.7 ng/mL Test performed on Sep 02, 2020 09:00 Ferritin 424 ng/mL Iron 119 mcg/dL Magnesium 2.1 mg/dL Iron Binding Capacity (TIBC) 289 mcg/dl % Iron Saturation 41.1 % UIBC 170 mcg/dL Impression: Metastatic colorectal cancer per colonoscopy done on March 08, 2020 confirmed adenocarcinoma and molecular profiling showed MMR proficient tumor, negative for KRAS and NRAS mutation but positive for BRAF V[address] scan of chest abdomen pelvis done on March 06, 2020 showed numerous low to intermediate density hepatic masses, mass within the right lobe measured 5.6 cm in transverse dimension. Nonspecific decreased attenuation noted in the periphery of spleen. And asymmetric thickening of the wall of the rectosigmoid colon. A lymph node near the segment of colon appears abnormally enlarged measuring 8.4 mm There is a fusion of T12 and L1 level. Left leg DVT confirmed by venous Doppler study done on March 06, 2020, initially treated with Eliquis, then patient was admitted [facility] on April 02, 2020, for which she was transferred to [facility] in [facility] with mental status confusion due to multiple area of embolic and ischemic stroke seen in the right occipital region and bilateral cerebellar region per MRI scan done and on April 02, 2020 she underwent embolectomy of basilar artery. And was started on Lovenox 60 mg subcu twice daily and concluded Eliquis failure. Anxiety/depression Started on systemic chemotherapy with FOLFOX by Dr. Evelio Ren in [place] and completed a second cycle on April 12, 2020. She has now completed a total of 9 cycles of the FOLFOX and she is tolerating it well. She did require dose reduction with cycle 5 due to worsening peripheral neuropathy, increased diarrhea and mouth sores. Since that reduction, she has tolerated treatment well. She had follow-up PET/CT on June 28, 2020 which reported her rectal mass at 4.8 x 2.8 cm with an SUV of 13.6. There were presacral and perirectal nodes and subcentimeter size and too small to characterize. Multifocal metastatic disease was present but most lesions did not demonstrate activity greater than that of hepatic background but several lesions were FDG positive. An index lesion in the posterior segment 6 measures 3.7 x 4.0 cm with an aphthous SUV of 4.7 and significant central necrosis. It is noted that the breast parenchyma and axillary lymph node uptake bilaterally was unremarkable. She reports she has never had a mammogram. There was reactive bone marrow uptake presumed from recent Neulasta therapy. She continues with modified FOLFOX. Follow-up CT PET scan done on November 19, 2020 showed disease progression in the rectosigmoid junction mass which has increased in size as well as SUV now 18 compared to 13.6 in May 2020 and worsening of diffuse hepatic metastatic disease, and subcentimeter pulmonary nodules in the upper lobes also has slightly increased and FDG positive, her chemotherapy was changed to FOLFIRI from FOLFOX Plan: Discussed with patient regarding her labs white blood count 7.4 hemoglobin 8.4 g adequate 27.7 platelets 274,000 CMP within normal limits Clinically, patient doing reasonably well, tolerating palliative therapy with FOLFIRI well, will proceed with the next dose today along with second dose of Injectafer for iron deficiency anemia Patient has already undergone liver SPECT/CT M AA mapping for purpose of blood flow mapping and lung shunt determination prior to treatment with Y 90 Sir sphere, in case patient received Y 90 Sir sphere therapy to her liver prior to next treatment, will postpone her chemotherapy and monitor her with lab work-up and may also consider sigmoid resection as per patient she has seen colorectal surgeon Dr. Mathew in [facility] and his recommendation is he would wait for 4 to 6-week after her last dose of chemotherapy. Patient return to clinic in 2 weeks with CBC CMP unless undergoes hepatic Y 90 Sir sphere therapy, in that case will hold her chemotherapy and monitor. Signed By: Lucian Carson M.D. <<Signature on File>>
[2021-02-12] MEDS: OLANZapine 10 mg TABLET PO (10:45)
[2021-02-12] MEDS: sodium chloride 0.9% 1,000 ML 999 ML IV (10:45)
== END 2021-02-26 23:59 | disposition home or self-care (01) ==
LOC: ONCMED 05:47
PROVIDERS: PCP Nurse Practitioner Family; Visit Provider Internal Medicine Hematology & Oncology
DX: Z51.11 Encounter for antineoplastic chemotherapy (principal); C19 Malignant neoplasm of rectosigmoid junction; Z86.718 Personal history of other venous thrombosis and embolism; Z79.01 Long term (current) use of anticoagulants; F41.9 Anxiety disorder, unspecified; F32.9 Major depressive disorder, single episode, unspecified; G62.0 Drug-induced polyneuropathy; T45.1X5D Adverse effect of antineoplastic and immunosuppressive drugs, subsequent encounter; Z79.899 Other long term (current) drug therapy
CPT/HCPCS: 36591; 80053; 85025; 96360; 96361; 96365; 96367; 96368; 96375; 96413; 96415; 96416; 99215; J0461; J0640; J1100; J1439; J2469; J7030; J7050; J9190; J9206

== ENCOUNTER 2021-03-06 06:34 | Outpatient (RCR) | payer OTHER, SELFPAY ==
[2021-03-06 10:48] LABS: Basophils # 0.1 10^3/uL (0.0-0.1); Basophils % 0.5 %; Eosinophils # 0.3 10^3/uL (0.0-0.8); Eosinophils % 2.5 %; Hematocrit 31.4 % (37.0-47.0); Hemoglobin 9.7 g/dL (11.5-15.3); Lymphocytes # 1.4 10^3/uL (0.8-4.8); Lymphocytes % 12.7 %; Mean Corpuscular HGB Conc 30.9 g/dL (30.0-36.0); Mean Corpuscular Hemoglobin 31.1 pg (28.0-34.0); Mean Corpuscular Volume 100.6 fl (81-99); Mean Platelet Volume 9.8 fL (7.4-10.4); Monocytes # 1.1 10^3/uL (0.2-0.9); Monocytes % 9.8 %; Neutrophils % 72.8 %; Nucleated Red Blood Cells % 0 %; Platelet Count 258 10^3/cmm (130-400); Red Blood Count 3.12 10^6/uL (4.1-5.3); Red Cell Distribution Width 16.7 % (12.1-15.1); White Blood Count 11.3 10^3/uL (4.0-10.0)
[2021-03-06 11:22] LABS: Alanine Aminotransferase 17 U/L (0-33); Albumin Level 3.3 g/dL (3.5-5.2); Alkaline Phosphatase 202 IU/L (35-105); Anion Gap 14.4 (5-19); Aspartate Amino Transferase 36 U/L (0-32); Blood Urea Nitrogen 8 mg/dL (6-20); Calcium 8.7 mg/dL (8.5-10.5); Carbon Dioxide 25 mmol/L (22-29); Chloride 102 mmol/L (98-107); Globulin 2.9 g/dL (1.3-4.6); Glomerular Filtration Rate 105.4 mL/min (90-130); Glucose 84 mg/dL (65-115); Osmolality Calculated 282 mOsm/kg (285-295); Potassium 4.4 mmol/L (3.5-5.1); Sodium 137 mmol/L (136-145); Total Bilirubin 0.2 mg/dL (0.15-1.2); Total Protein 6.2 g/dL (6.6-8.7)
== END 2021-03-29 23:59 | disposition home or self-care (01) ==
LOC: ONCMED 06:34
PROVIDERS: PCP Nurse Practitioner Family; Visit Provider Internal Medicine Hematology & Oncology
DX: C19 Malignant neoplasm of rectosigmoid junction (principal); C78.7 Secondary malignant neoplasm of liver and intrahepatic bile duct
CPT/HCPCS: 36591; 80053; 85025

== ENCOUNTER 2021-05-25 08:37 | Outpatient (RCR) | payer OTHER, SELFPAY ==
[2021-04-30] MEDS: sodium chloride 0.9% 1,000 ML 999 ML IV (09:50)
[2021-05-20 10:53] LABS: Basophils % 0.5 %; Eosinophils # 0.4 10^3/uL (0.0-0.8); Eosinophils % 5.3 %; Hematocrit 25.1 % (37.0-47.0); Hemoglobin 7.9 g/dL (11.5-15.3); Lymphocytes # 1.2 10^3/uL (0.8-4.8); Lymphocytes % 14.9 %; Mean Corpuscular HGB Conc 31.5 g/dL (30.0-36.0); Mean Corpuscular Hemoglobin 29.4 pg (28.0-34.0); Mean Corpuscular Volume 93.3 fl (81-99); Mean Platelet Volume 9.7 fL (7.4-10.4); Monocytes # 0.8 10^3/uL (0.2-0.9); Monocytes % 10.1 %; Neutrophils # 5.69 10^3/uL (1.8-7.7); Neutrophils % 68.7 %; Nucleated Red Blood Cells % 0 %; Platelet Count 327 10^3/cmm (130-400); Red Blood Count 2.69 10^6/uL (4.1-5.3); Red Cell Distribution Width 17.5 % (12.1-15.1); White Blood Count 8.3 10^3/uL (4.0-10.0)
[2021-05-20 11:32] LABS: Alanine Aminotransferase 36 U/L (0-33); Albumin Level 2.8 g/dL (3.5-5.2); Alkaline Phosphatase 347 IU/L (35-105); Anion Gap 18.2 (5-19); Aspartate Amino Transferase 81 U/L (0-32); Blood Urea Nitrogen 5 mg/dL (6-20); Calcium 7.8 mg/dL (8.5-10.5); Carbon Dioxide 17 mmol/L (22-29); Chloride 104 mmol/L (98-107); Glomerular Filtration Rate 88.2 mL/min (90-130); Glucose 113 mg/dL (65-115); Osmolality Calculated 280 mOsm/kg (285-295); Potassium 3.2 mmol/L (3.5-5.1); Sodium 136 mmol/L (136-145); Total Bilirubin 0.2 mg/dL (0.15-1.2); Total Protein 5.8 g/dL (6.6-8.7)
--- NOTE | 2021-05-21 14:38 | ONC FU_ITS ---
Dr. Carson follow up note Patient: Ailyn Lobato Unit #: [id number]: 1970 Dicatated By: Lucian Carson M.D.Date of Visit:May 21, 2021 Onc Med Follow-up/Prog Note History of Present Illness: Mrs. Lobato is a 50-year-old female with who was diagnosed with colorectal cancer per colonoscopy done on March 08, 2020 at [facility] in [facility]. She reports he went to emergency room with 6-week history of progressive worsening of right upper quadrant pain and nausea along with history of off and on bleeding per rectum over 6-month duration. She states she thought her right upper quadrant pain was due to gallbladder. She underwent CT scan of chest abdomen pelvis on March 06, 2020 which showed asymmetric thickening of the wall of rectosigmoid colon and low to intermediate density hepatic masses in the liver a mass within the right lobe measured 5.6 cm in transverse dimension. Pancreas normal, adrenal normal and increased density within the left common femoral vein and left superficial femoral vein. A venous doppler done on March 06, 2020 confirmed left popliteal to common femoral DVT. She was started on Lovenox and later transitioned to Eliquis. Mrs Lobato was diagnosed with metastatic colorectal cancer with liver mets at [facility] on . 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 Mrs Murcia was seen by Dr. Dae Ren, medical oncologist. He recommended systemic chemotherapy with FOLFOX every 2 weeks. However on April 02, 2020, she went to back to [facility] ER with confusion and mental status changes of 1 week duration and MRI scan of the brain was done with a concern for metastatic disease but it did not show any evidence of brain mets but showed multiple areas of embolic and ischemic stroke particular to the right occipital region and bilateral cerebellar region. As there was no neurology coverage, she was transferred to [facility] in [facility]. 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 On April 02, 2020, she underwent embolectomy of basilar artery and patient was discharged home on April 05, 2020 with Lovenox 60 mg twice a day and also concluded Eliquis failure. Mrs Moreland was seen by Dr. Evelio Ren and she was started on systemic chemotherapy with FOLFOX and second cycle of chemotherapy was completed on April 12, 2020. Due to her convenience as patient lives in [place], [place], she has decided to switch her care to [place]. She is completed 5 cycles of FOLFOX. She is required growth factor support for chemotherapy-induced neutropenia. She continues with Lovenox. Follow-up CT PET scan done after six cycles of modified FOLFOX, on June 28, 2020 showed there is a 4.4 x 2.8 cm rectal mass with SUV of 13.6 with presacral perirectal nodes are subcentimeter in size and too small to characterize. Multifocal hepatic metastatic disease is present most lesions do not demonstrate activity greater than that of hepatic background but several lesions are FDG positive the index lesion in the posterior segment four measuring 3.7 x 4.0 cm with SUV of 4.7 compared to 5.[address] scan done in February 2020, with significant central necrosis. She continues with FOLFOX with growth factor support. She received Injectafer on July 01, 2020 for oral iron intolerant documented iron deficiency. Her iron saturation on June 02, 2020 was 6.5% her ferritin was 66 and iron level was 23. Her hemoglobin at that time was 9.3. Her second dose of Injectafer had been delayed due to increment weather. She received her second dose on 07/23/2020. After 12 cycles of modified dose FOLFOX, Follow-up CT PET scan done on November 19, 2020 shows there is a mass associated with the colon near the rectosigmoid junction SUV of 18. Diffuse hepatic metastatic disease with SUV ranging from 8-13, subcentimeter pulmonary nodules in the right upper lobe and left upper lobe most likely early pulmonary metastatic disease, this PET scan was compared with CT scan of abdomen done on November 05, [address] PET scan done in May 2020, When compared with CT PET scan from May 2020, it confirmed disease progression as mass near the rectosigmoid junction has increased in size and also progressed on CT PET scan as SUV is 18 compared to 13.6 previously as well as tumor volume is 78 mL compared to 26 mL previously Also severe progression of hepatic metastasis on previous exam only scattered areas of increased activity compared to marked increase in number and size of foci of abnormal activity which are now becoming confluent throughout many areas in the liver. There are 2 subcentimeter pulmonary nodules which are but positive on current study appearing to have enlarged slightly from prior CT PET scan as right upper lobe nodule is 7.4 mm compared to 6 mm before and the left upper lobe is 8.8 mm compared to 5.6 mm before And CEA gone up to 246 on December 17, 2020 compared to 23.7 on September 16, 2020 so she was Switched to FOLFIRI from FOLFOX after follow-up PET scan done on November 19, 2020 showed disease progression Which she started on December 17, 2020 And last dose was given on February 10, 2021, subsequently underwent Y 90 SIR-Spheres therapy to the right lobe of the liver on February 20, 2021 and due to aberrant anatomy of the left lobe of liver was treated with chemoembolization on April 09, 2021. Patient underwent follow-up CT scan abdomen pelvis on May 15, 2021 which shows interval development of innumerable apparent pulmonary metastatic disease to the visualized portion of the lung bases bilaterally. Interval development of 12 mm subcutaneous soft tissue density nodule within the right lateral abdominal wall. Marked interval progression of hepatic metastatic disease to both lobe of the liver. Came for follow-up, complaining of generalized weakness and fatigue, off and on mild nausea, as per patient and her sister OxyContin/oxycodone was causing severe mental status changes. Dr. Silver's office evaluated her for hepatic encephalopathy but as per discussion with Kristina Jaret nursing practitioner with Dr. Silver, her ammonia level was within normal range, when narcotics were stopped her mental status improved. Patient denies any melena or hematochezia, denies any hemoptysis or hematemesis, denies any jaundice, denies any fever chills. As per patient Dr. Silver's office asked her to come here to discuss further treatment options and further care. Medications: Benadryl Allergy 1 Tablet (of 25 mg) Oral daily PRN, busPIRone HCl 1 Tablet (of 10 mg) Oral daily, Citalopram Hydrobromide 1 Tablet (of 20 mg) Oral daily, Enoxaparin Sodium 60 Units (of 300 mg/3mL) Injection b.i.d., Montelukast Sodium 1 Tablet (of 10 mg) Oral daily PRN, Probiotic 1 Capsule Oral daily, Promethazine HCl 1 Tablet (of 25 mg) Oral daily PRN, Zofran 1 Tablet (of 8 mg) Oral PRN Allergies: Bactrim, bananas lemon/kobuk Sea food-omega, coffee, fish, garlic, milk , Penicillins, angel, and salmon. Review of Systems: Review of Systems is not available for this patient. Vital Signs: Performed on May 21, 2021 13:35 Height - 67.00 in Weight - 134.0 lbs (LOW) BSA - 1.71 sq.m BMI - 20.99 Temperature - 98.3 F (LOW) Pulse - 115 /min (HIGH) Respiration - 18 /min BP - 117/79 mm(hg) O2 Sat - 99 % Pain - 0 Fatigue - 8 Performance Status: 2 - Ambulatory/capable of all self-care, unable to perform any work activities. Up and about more than 50% of waking hours. (ECOG) Physical Examination: ENMT - No mouth sores, no thrush, no jaundice, Respiratory - Lungs are clear to auscultation, Cardiovascular - Regular rate and rhythm of heart, Abdomen - Soft, bowel sounds present, Extremities - No visible edema. Lab/Imaging: Most recent lab results are not available for this patient. Impression: Metastatic colorectal cancer per colonoscopy done on March 08, 2020 confirmed adenocarcinoma and molecular profiling showed MMR proficient tumor, negative for KRAS and NRAS mutation but positive for BRAF V[address] scan of chest abdomen pelvis done on March 06, 2020 showed numerous low to intermediate density hepatic masses, mass within the right lobe measured 5.6 cm in transverse dimension. Nonspecific decreased attenuation noted in the periphery of spleen. And asymmetric thickening of the wall of the rectosigmoid colon. A lymph node near the segment of colon appears abnormally enlarged measuring 8.4 mm There is a fusion of T12 and L1 level. Left leg DVT confirmed by venous Doppler study done on March 06, 2020, initially treated with Eliquis, then patient was admitted [facility] on April 02, 2020, for which she was transferred to [facility] in [facility] with mental status confusion due to multiple area of embolic and ischemic stroke seen in the right occipital region and bilateral cerebellar region per MRI scan done and on April 02, 2020 she underwent embolectomy of basilar artery. And was started on Lovenox 60 mg subcu twice daily and concluded Eliquis failure. Anxiety/depression Started on systemic chemotherapy with FOLFOX by Dr. Evelio Ren in [place] and completed a second cycle on April 12, 2020. She has now completed a total of 9 cycles of the FOLFOX and she is tolerating it well. She did require dose reduction with cycle 5 due to worsening peripheral neuropathy, increased diarrhea and mouth sores. Since that reduction, she has tolerated treatment well. She had follow-up PET/CT on June 28, 2020 which reported her rectal mass at 4.8 x 2.8 cm with an SUV of 13.6. There were presacral and perirectal nodes and subcentimeter size and too small to characterize. Multifocal metastatic disease was present but most lesions did not demonstrate activity greater than that of hepatic background but several lesions were FDG positive. An index lesion in the posterior segment 6 measures 3.7 x 4.0 cm with an aphthous SUV of 4.7 and significant central necrosis. It is noted that the breast parenchyma and axillary lymph node uptake bilaterally was unremarkable. She reports she has never had a mammogram. There was reactive bone marrow uptake presumed from recent Neulasta therapy. She continues with modified FOLFOX. Follow-up CT PET scan done on November 19, 2020 showed disease progression in the rectosigmoid junction mass which has increased in size as well as SUV now 18 compared to 13.6 in May 2020 and worsening of diffuse hepatic metastatic disease, and subcentimeter pulmonary nodules in the upper lobes also has slightly increased and FDG positive, her chemotherapy was changed to FOLFIRI from FOLFOX Plan: Discussed with patient regarding her labs from May 20, 2021 white blood count 8.3 hemoglobin 7.9 hematocrit 25.1 platelets 327,000 MCV 93.3 CMP within normal limit except potassium 3.2 and albumin 2.8 and AST 81 ALT 36 and alk phos 347 and CEA 1131 Clinically, patient is doing reasonably well, in mild to moderate distress due to progressive/severe anemia, will consider 2 units of packed RBC. And also potassium supplement for mild hypokalemia. As far as, metastatic colon cancer is concerned, she recently underwent radioembolization to the right lower liver in January 2021 and chemoembolization to the left lobe of the liver on April 09, 2021 and her follow-up CT scan of abdomen pelvis shows disease progression both in the lung and in the liver and her tumor marker CEA is also markedly elevated. Treatment options including palliative therapy versus observation versus hospice was discussed by Dr. Silver's office and patient and family opted for treatment option, they were advised to come and see us. Her care was discussed with patient and her sister in the room and her another sister Flakita on the phone and Flakita prefer her to go to cancer treatment [facility] in [place], as per Flakita her [id number] went to [facility] in [place] and now he is cancer free and she wants to take her sister there too. In the meantime, we will consider to just of packed RBC for symptomatic anemia, patient was advised to take potassium supplement and maintain hydration and also consider [id number] multivitamins. Patient sister Flakita will call [facility] in [place] for appointment and we will provide any assistance she may need. Patient will return to clinic after her visit to [facility] in [place] unless patient decides to pursue treatment there. Signed By: Lucian Carson M.D. <<Signature on File>>
[2021-05-21 15:02] LABS: Ferritin 84 ng/mL (15-150); Iron 22 ug/dL (37-145); Percent Saturation 11.2 % (20-50); Total Iron Binding Capacity 195 mcg/dl; Unsaturated Iron Binding 173 ug/dL (112-347)
[2021-05-21 15:08] LABS: Vitamin B12 > 1000 pg/mL (232-1245)
[2021-05-25 08:59] LABS: Basophils % 0.3 %; Eosinophils # 0.5 10^3/uL (0.0-0.8); Eosinophils % 4.2 %; Hematocrit 26.7 % (37.0-47.0); Hemoglobin 8.2 g/dL (11.5-15.3); Lymphocytes # 1.6 10^3/uL (0.8-4.8); Lymphocytes % 12.4 %; Mean Corpuscular HGB Conc 30.7 g/dL (30.0-36.0); Mean Corpuscular Hemoglobin 28.8 pg (28.0-34.0); Mean Corpuscular Volume 93.7 fl (81-99); Mean Platelet Volume 9.8 fL (7.4-10.4); Monocytes % 8.1 %; Neutrophils % 74.3 %; Nucleated Red Blood Cells % 0 %; Platelet Count 470 10^3/cmm (130-400); Red Blood Count 2.85 10^6/uL (4.1-5.3); Red Cell Distribution Width 17.8 % (12.1-15.1); White Blood Count 12.8 10^3/uL (4.0-10.0)
[2021-05-25] MEDS: acetaminophen 325 mg Tablet 650 MG PO (11:29)
[2021-05-25] MEDS: sodium chloride 0.9% 250 ML 999 ML IV (11:29)
[2021-05-25] MEDS: diphenhydrAMINE 25 mg Capsule PO (11:29)
[2021-05-25 11:30] VITALS: BP 137/67; PULSE 122; RESP 16; TEMP 37.3; O2SAT 94
[2021-05-25 11:50] VITALS: BP 114/69; PULSE 120; RESP 16; TEMP 36.8; O2SAT 96
[2021-05-25 12:10] VITALS: BP 102/59; PULSE 116; RESP 18; TEMP 37.1; O2SAT 97
[2021-05-25 12:40] VITALS: BP 123/67; PULSE 119; RESP 18; TEMP 36.1; O2SAT 95
[2021-05-25 13:10] VITALS: BP 124/66; PULSE 114; RESP 18; TEMP 36.1; O2SAT 95
[2021-05-25] MEDS: OLANZapine 5 mg TABLET PO (13:15)
== END 2021-05-29 23:59 | disposition home or self-care (01) ==
LOC: ONCMED 08:37
PROVIDERS: PCP Nurse Practitioner Family; Visit Provider Internal Medicine Hematology & Oncology
DX: C19 Malignant neoplasm of rectosigmoid junction (principal); C78.7 Secondary malignant neoplasm of liver and intrahepatic bile duct; M43.25 Fusion of spine, thoracolumbar region; Z86.718 Personal history of other venous thrombosis and embolism; F41.9 Anxiety disorder, unspecified; F32.9 Major depressive disorder, single episode, unspecified; G62.0 Drug-induced polyneuropathy; K52.1 Toxic gastroenteritis and colitis; T45.1X5A Adverse effect of antineoplastic and immunosuppressive drugs, initial encounter; K13.79 Other lesions of oral mucosa; Z79.899 Other long term (current) drug therapy
CPT/HCPCS: 36430; 36591; 80053; 82378; 82607; 82728; 83540; 83550; 85025; 86850; 86900; 86920; 96360; 99214; J7030; J7050; P9016

== ENCOUNTER 2021-06-15 06:20 | Outpatient (RCR) | payer OTHER, SELFPAY ==
[2021-06-01 13:24] LABS: Basophils # 0.1 10^3/uL (0.0-0.1); Basophils % 0.6 %; Eosinophils # 0.4 10^3/uL (0.0-0.8); Eosinophils % 3.4 %; Hematocrit 27.7 % (37.0-47.0); Hemoglobin 8.8 g/dL (11.5-15.3); Lymphocytes # 1.7 10^3/uL (0.8-4.8); Lymphocytes % 14.9 %; Mean Corpuscular HGB Conc 31.8 g/dL (30.0-36.0); Mean Corpuscular Hemoglobin 29.5 pg (28.0-34.0); Mean Platelet Volume 9.5 fL (7.4-10.4); Monocytes % 9.1 %; Neutrophils % 71.3 %; Nucleated Red Blood Cells % 0 %; Platelet Count 445 10^3/cmm (130-400); Red Blood Count 2.98 10^6/uL (4.1-5.3); Red Cell Distribution Width 16.8 % (12.1-15.1); White Blood Count 11.4 10^3/uL (4.0-10.0)
[2021-06-01 13:58] LABS: Alanine Aminotransferase 39 U/L (0-33); Albumin Level 2.7 g/dL (3.5-5.2); Alkaline Phosphatase 531 IU/L (35-105); Anion Gap 17.1 (5-19); Aspartate Amino Transferase 83 U/L (0-32); Blood Urea Nitrogen 9 mg/dL (6-20); Carbon Dioxide 19 mmol/L (22-29); Chloride 101 mmol/L (98-107); Globulin 3.3 g/dL (1.3-4.6); Glomerular Filtration Rate 75.6 mL/min (90-130); Glucose 99 mg/dL (65-115); Osmolality Calculated 275 mOsm/kg (285-295); Potassium 4.1 mmol/L (3.5-5.1); Sodium 133 mmol/L (136-145); Total Bilirubin 0.4 mg/dL (0.15-1.2)
[2021-06-01] MEDS: palonosetron 0.25 mg/5 mL SDV IV (15:04)
[2021-06-01] MEDS: sodium chloride 0.9% 500 ML 999 ML IV (15:30)
[2021-06-01] MEDS: HYDROmorphone 1 mg/mL INJ 1 mL 2 MG IV (15:48)
--- NOTE | 2021-06-01 16:10 | ONC FU_ITS ---
Dr. Carson follow up note Patient: Ailyn Lobato Unit #: [id number]: 1970 Dicatated By: Lucian Carson M.D.Date of Visit:Jun 01, 2021 Onc Med Follow-up/Prog Note History of Present Illness: Mrs. Lobato is a 50-year-old female with who was diagnosed with colorectal cancer per colonoscopy done on March 08, 2020 at [facility] in [facility]. She reports he went to emergency room with 6-week history of progressive worsening of right upper quadrant pain and nausea along with history of off and on bleeding per rectum over 6-month duration. She states she thought her right upper quadrant pain was due to gallbladder. She underwent CT scan of chest abdomen pelvis on March 06, 2020 which showed asymmetric thickening of the wall of rectosigmoid colon and low to intermediate density hepatic masses in the liver a mass within the right lobe measured 5.6 cm in transverse dimension. Pancreas normal, adrenal normal and increased density within the left common femoral vein and left superficial femoral vein. A venous doppler done on March 06, 2020 confirmed left popliteal to common femoral DVT. She was started on Lovenox and later transitioned to Eliquis. Mrs Lobato was diagnosed with metastatic colorectal cancer with liver mets at [facility] on . 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 Mrs Murcia was seen by Dr. Dae Ren, medical oncologist. He recommended systemic chemotherapy with FOLFOX every 2 weeks. However on April 02, 2020, she went to back to [facility] ER with confusion and mental status changes of 1 week duration and MRI scan of the brain was done with a concern for metastatic disease but it did not show any evidence of brain mets but showed multiple areas of embolic and ischemic stroke particular to the right occipital region and bilateral cerebellar region. As there was no neurology coverage, she was transferred to [facility] in [facility]. 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 On April 02, 2020, she underwent embolectomy of basilar artery and patient was discharged home on April 05, 2020 with Lovenox 60 mg twice a day and also concluded Eliquis failure. Mrs Moreland was seen by Dr. Evelio Ren and she was started on systemic chemotherapy with FOLFOX and second cycle of chemotherapy was completed on April 12, 2020. Due to her convenience as patient lives in [place], [place], she has decided to switch her care to [place]. She is completed 5 cycles of FOLFOX. She is required growth factor support for chemotherapy-induced neutropenia. She continues with Lovenox. Follow-up CT PET scan done after six cycles of modified FOLFOX, on June 28, 2020 showed there is a 4.4 x 2.8 cm rectal mass with SUV of 13.6 with presacral perirectal nodes are subcentimeter in size and too small to characterize. Multifocal hepatic metastatic disease is present most lesions do not demonstrate activity greater than that of hepatic background but several lesions are FDG positive the index lesion in the posterior segment four measuring 3.7 x 4.0 cm with SUV of 4.7 compared to 5.[address] scan done in February 2020, with significant central necrosis. She continues with FOLFOX with growth factor support. She received Injectafer on July 01, 2020 for oral iron intolerant documented iron deficiency. Her iron saturation on June 02, 2020 was 6.5% her ferritin was 66 and iron level was 23. Her hemoglobin at that time was 9.3. Her second dose of Injectafer had been delayed due to increment weather. She received her second dose on 07/23/2020. After 12 cycles of modified dose FOLFOX, Follow-up CT PET scan done on November 19, 2020 shows there is a mass associated with the colon near the rectosigmoid junction SUV of 18. Diffuse hepatic metastatic disease with SUV ranging from 8-13, subcentimeter pulmonary nodules in the right upper lobe and left upper lobe most likely early pulmonary metastatic disease, this PET scan was compared with CT scan of abdomen done on November 05, [address] PET scan done in May 2020, When compared with CT PET scan from May 2020, it confirmed disease progression as mass near the rectosigmoid junction has increased in size and also progressed on CT PET scan as SUV is 18 compared to 13.6 previously as well as tumor volume is 78 mL compared to 26 mL previously Also severe progression of hepatic metastasis on previous exam only scattered areas of increased activity compared to marked increase in number and size of foci of abnormal activity which are now becoming confluent throughout many areas in the liver. There are 2 subcentimeter pulmonary nodules which are but positive on current study appearing to have enlarged slightly from prior CT PET scan as right upper lobe nodule is 7.4 mm compared to 6 mm before and the left upper lobe is 8.8 mm compared to 5.6 mm before And CEA gone up to 246 on December 17, 2020 compared to 23.7 on September 16, 2020 so she was Switched to FOLFIRI from FOLFOX after follow-up PET scan done on November 19, 2020 showed disease progression Which she started on December 17, 2020 And last dose was given on February 10, 2021, subsequently underwent Y 90 SIR-Spheres therapy to the right lobe of the liver on February 20, 2021 and due to aberrant anatomy of the left lobe of liver was treated with chemoembolization on April 09, 2021. Patient underwent follow-up CT scan abdomen pelvis on May 15, 2021 which shows interval development of innumerable apparent pulmonary metastatic disease to the visualized portion of the lung bases bilaterally. Interval development of 12 mm subcutaneous soft tissue density nodule within the right lateral abdominal wall. Marked interval progression of hepatic metastatic disease to both lobe of the liver. Came for follow-up, complaining of generalized weakness and fatigue, off and on nausea but no hemoptysis or hematemesis, as per patient Gracie is helping her. [facility] [place] but as per patient because of poor performance status she did not get appointment and now decided to stay here. Denies any jaundice but abdominal pain especially in the right upper quadrant/epigastric area, denies any melena or hematochezia, denies any jaundice, denies any dysuria or hematuria, denies any fever chills. Medications: Benadryl Allergy 1 Tablet (of 25 mg) Oral daily PRN, busPIRone HCl 1 Tablet (of 10 mg) Oral daily, Citalopram Hydrobromide 1 Tablet (of 20 mg) Oral daily, Enoxaparin Sodium 60 Units (of 300 mg/3mL) Injection b.i.d., Montelukast Sodium 1 Tablet (of 10 mg) Oral daily PRN, Probiotic 1 Capsule Oral daily, Promethazine HCl 1 Tablet (of 25 mg) Oral daily PRN, Zofran 1 Tablet (of 8 mg) Oral PRN Allergies: Bactrim, bananas lemon/[place] Sea food-omega, coffee, fish, garlic, milk , Penicillins, angel, and salmon. Review of Systems: Review of Systems is not available for this patient. Vital Signs: Performed on Jun 01, 2021 14:11 Height - 67.00 in Temperature - 97.7 F (LOW) Pulse - 109 /min (HIGH) Respiration - 16 /min BP - 129/77 mm(hg) O2 Sat - 90 % (LOW) Pain - 2 Fatigue - 8 Performance Status: 3 - Capable of only limited self-care, confined to bed or chair more than 50% of waking hours. (ECOG) Physical Examination: ENMT - Dry oral mucosa, no mouth sores, no thrush, no jaundice, Respiratory - Lungs are clear to auscultation, Cardiovascular - Regular rate and rhythm of heart, Abdomen - Soft, bowel sounds present, Extremities - No visible edema. Lab/Imaging: Most recent lab results are not available for this patient. Impression: Metastatic colorectal cancer per colonoscopy done on March 08, 2020 confirmed adenocarcinoma and molecular profiling showed MMR proficient tumor, negative for KRAS and NRAS mutation but positive for BRAF V[address] scan of chest abdomen pelvis done on March 06, 2020 showed numerous low to intermediate density hepatic masses, mass within the right lobe measured 5.6 cm in transverse dimension. Nonspecific decreased attenuation noted in the periphery of spleen. And asymmetric thickening of the wall of the rectosigmoid colon. A lymph node near the segment of colon appears abnormally enlarged measuring 8.4 mm There is a fusion of T12 and L1 level. Left leg DVT confirmed by venous Doppler study done on March 06, 2020, initially treated with Eliquis, then patient was admitted [facility] on April 02, 2020, for which she was transferred to [facility] in [facility] with mental status confusion due to multiple area of embolic and ischemic stroke seen in the right occipital region and bilateral cerebellar region per MRI scan done and on April 02, 2020 she underwent embolectomy of basilar artery. And was started on Lovenox 60 mg subcu twice daily and concluded Eliquis failure. Anxiety/depression Started on systemic chemotherapy with FOLFOX by Dr. Evelio Ren in [place] and completed a second cycle on April 12, 2020. She has now completed a total of 9 cycles of the FOLFOX and she is tolerating it well. She did require dose reduction with cycle 5 due to worsening peripheral neuropathy, increased diarrhea and mouth sores. Since that reduction, she has tolerated treatment well. She had follow-up PET/CT on June 28, 2020 which reported her rectal mass at 4.8 x 2.8 cm with an SUV of 13.6. There were presacral and perirectal nodes and subcentimeter size and too small to characterize. Multifocal metastatic disease was present but most lesions did not demonstrate activity greater than that of hepatic background but several lesions were FDG positive. An index lesion in the posterior segment 6 measures 3.7 x 4.0 cm with an aphthous SUV of 4.7 and significant central necrosis. It is noted that the breast parenchyma and axillary lymph node uptake bilaterally was unremarkable. She reports she has never had a mammogram. There was reactive bone marrow uptake presumed from recent Neulasta therapy. She continues with modified FOLFOX. Follow-up CT PET scan done on November 19, 2020 showed disease progression in the rectosigmoid junction mass which has increased in size as well as SUV now 18 compared to 13.6 in May 2020 and worsening of diffuse hepatic metastatic disease, and subcentimeter pulmonary nodules in the upper lobes also has slightly increased and FDG positive, her chemotherapy was changed to FOLFIRI from FOLFOX Plan: Discussed with patient regarding her labs white blood count 11.4 hemoglobin 8.8 hematocrit 27.7 platelets 445,000 CMP within normal limit except sodium 133 and alk phos 531 and her tumor marker CEA checked on May 20, 2021 was 1131.0 Clinically, patient is in mild to moderate distress due to off-and-on nausea vomiting and generalized weakness and fatigue, patient had episode of fall because of generalized weakness and fatigue but no seizure-like activity no focal weakness, no blurred vision no double vision. Patient [facility] [place] but because of poor performance status she was not given appointment. Today she was feeling weak and tired because of nausea and epigastric pain/right upper quadrant discomfort which could be due to disease progression in the liver., Patient has poor performance status, hospice care was discussed with patient's family and unless patient's overall performance status and nutritional status improve, she may not able to tolerate systemic therapy. We will proceed with IV hydration with dexamethasone 5 mg/Zofran and then she'll return to clinic in 2 weeks with CBC CMP, patient was advised to maintain nutrition and hydration. Signed By: Lucian Carson M.D. <<Signature on File>>
[2021-06-15 09:11] LABS: Basophils # 0.1 10^3/uL (0.0-0.1); Basophils % 0.5 %; Eosinophils # 0.2 10^3/uL (0.0-0.8); Eosinophils % 1.4 %; Hemoglobin 8.6 g/dL (11.5-15.3); Lymphocytes # 1.1 10^3/uL (0.8-4.8); Lymphocytes % 6.9 %; Mean Corpuscular HGB Conc 31.9 g/dL (30.0-36.0); Mean Corpuscular Hemoglobin 29.7 pg (28.0-34.0); Mean Corpuscular Volume 93.1 fl (81-99); Mean Platelet Volume 9.2 fL (7.4-10.4); Monocytes # 1.1 10^3/uL (0.2-0.9); Monocytes % 6.6 %; Neutrophils # 13.38 10^3/uL (1.8-7.7); Neutrophils % 84.1 %; Nucleated Red Blood Cells % 0 %; Platelet Count 352 10^3/cmm (130-400); Red Cell Distribution Width 18.1 % (12.1-15.1); White Blood Count 15.9 10^3/uL (4.0-10.0)
[2021-06-15 09:31] LABS: Alanine Aminotransferase 31 U/L (0-33); Albumin Level 2.8 g/dL (3.5-5.2); Alkaline Phosphatase 592 IU/L (35-105); Anion Gap 20.1 (5-19); Aspartate Amino Transferase 65 U/L (0-32); Blood Urea Nitrogen 27 mg/dL (6-20); Calcium 7.4 mg/dL (8.5-10.5); Carbon Dioxide 17 mmol/L (22-29); Chloride 93 mmol/L (98-107); Globulin 2.7 g/dL (1.3-4.6); Glomerular Filtration Rate 31.7 mL/min (90-130); Glucose 121 mg/dL (65-115); Osmolality Calculated 266 mOsm/kg (285-295); Potassium 5.1 mmol/L (3.5-5.1); Sodium 125 mmol/L (136-145); Total Bilirubin 0.9 mg/dL (0.15-1.2); Total Protein 5.5 g/dL (6.6-8.7)
--- NOTE | 2021-06-15 17:08 | ONC FU_ITS ---
Dr. Carson follow up note Patient: Ailyn Lobato Unit #: [id number]: [id number] Dicatated By: Lucian Carson M.D.Date of Visit:Jun 15, 2021 Onc Med Follow-up/Prog Note History of Present Illness: Mrs. Lobato is a 50-year-old female with who was diagnosed with colorectal cancer per colonoscopy done on March 08, 2020 at [facility] in [facility]. She reports he went to emergency room with 6-week history of progressive worsening of right upper quadrant pain and nausea along with history of off and on bleeding per rectum over 6-month duration. She states she thought her right upper quadrant pain was due to gallbladder. She underwent CT scan of chest abdomen pelvis on March 06, 2020 which showed asymmetric thickening of the wall of rectosigmoid colon and low to intermediate density hepatic masses in the liver a mass within the right lobe measured 5.6 cm in transverse dimension. Pancreas normal, adrenal normal and increased density within the left common femoral vein and left superficial femoral vein. A venous doppler done on March 06, 2020 confirmed left popliteal to common femoral DVT. She was started on Lovenox and later transitioned to Eliquis. Mrs Lobato was diagnosed with metastatic colorectal cancer with liver mets at [facility] on . Her final pathology report (from a rectosigmoid biopsy from her colonoscopy on 03/08/2020) showed mutations not detected for both K-malry and NRAS but positive for BRAF V600E mutation. Mrs Murcia was seen by Dr. Dae Ren, medical oncologist. He recommended systemic chemotherapy with FOLFOX every 2 weeks. However on April 02, 2020, she went to back to [facility] ER with confusion and mental status changes of 1 week duration and MRI scan of the brain was done with a concern for metastatic disease but it did not show any evidence of brain mets but showed multiple areas of embolic and ischemic stroke particular to the right occipital region and bilateral cerebellar region. As there was no neurology coverage, she was transferred to [facility] in [facility]. 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 On April 02, 2020, she underwent embolectomy of basilar artery and patient was discharged home on April 05, 2020 with Lovenox 60 mg twice a day and also concluded Eliquis failure. Mrs Moreland was seen by Dr. Evelio Ren and she was started on systemic chemotherapy with FOLFOX and second cycle of chemotherapy was completed on April 12, 2020. Due to her convenience as patient lives in [place], [place], she has decided to switch her care to [place]. She is completed 5 cycles of FOLFOX. She is required growth factor support for chemotherapy-induced neutropenia. She continues with Lovenox. Follow-up CT PET scan done after six cycles of modified FOLFOX, on June 28, 2020 showed there is a 4.4 x 2.8 cm rectal mass with SUV of 13.6 with presacral perirectal nodes are subcentimeter in size and too small to characterize. Multifocal hepatic metastatic disease is present most lesions do not demonstrate activity greater than that of hepatic background but several lesions are FDG positive the index lesion in the posterior segment four measuring 3.7 x 4.0 cm with SUV of 4.7 compared to 5.[address] scan done in February 2020, with significant central necrosis. She continues with FOLFOX with growth factor support. She received Injectafer on July 01, 2020 for oral iron intolerant documented iron deficiency. Her iron saturation on June 02, 2020 was 6.5% her ferritin was 66 and iron level was 23. Her hemoglobin at that time was 9.3. Her second dose of Injectafer had been delayed due to increment weather. She received her second dose on 07/23/2020. After 12 cycles of modified dose FOLFOX, Follow-up CT PET scan done on November 19, 2020 shows there is a mass associated with the colon near the rectosigmoid junction SUV of 18. Diffuse hepatic metastatic disease with SUV ranging from 8-13, subcentimeter pulmonary nodules in the right upper lobe and left upper lobe most likely early pulmonary metastatic disease, this PET scan was compared with CT scan of abdomen done on November 05, [address] PET scan done in May 2020, When compared with CT PET scan from May 2020, it confirmed disease progression as mass near the rectosigmoid junction has increased in size and also progressed on CT PET scan as SUV is 18 compared to 13.6 previously as well as tumor volume is 78 mL compared to 26 mL previously Also severe progression of hepatic metastasis on previous exam only scattered areas of increased activity compared to marked increase in number and size of foci of abnormal activity which are now becoming confluent throughout many areas in the liver. There are 2 subcentimeter pulmonary nodules which are but positive on current study appearing to have enlarged slightly from prior CT PET scan as right upper lobe nodule is 7.4 mm compared to 6 mm before and the left upper lobe is 8.8 mm compared to 5.6 mm before And CEA gone up to 246 on December 17, 2020 compared to 23.7 on September 16, 2020 so she was Switched to FOLFIRI from FOLFOX after follow-up PET scan done on November 19, 2020 showed disease progression Which she started on December 17, 2020 And last dose was given on February 10, 2021, subsequently underwent Y 90 SIR-Spheres therapy to the right lobe of the liver on February 20, 2021 and due to aberrant anatomy of the left lobe of liver was treated with chemoembolization on April 09, 2021. Patient underwent follow-up CT scan abdomen pelvis on May 15, 2021 which shows interval development of innumerable apparent pulmonary metastatic disease to the visualized portion of the lung bases bilaterally. Interval development of 12 mm subcutaneous soft tissue density nodule within the right lateral abdominal wall. Marked interval progression of hepatic metastatic disease to both lobe of the liver. Came for follow-up, complaining of progressive generalized weakness and fatigue, lower extremity edema, her pain is under control with current pain medication, as per family, off-and-on appears confused. But no melena or hematochezia, no hemoptysis or hematemesis, no jaundice, her overall performance status is declining. As per sister they did discuss about hospice care and in fact, intact with hospice. Medications: Benadryl Allergy 1 Tablet (of 25 mg) Oral daily PRN, busPIRone HCl 1 Tablet (of 10 mg) Oral daily, Citalopram Hydrobromide 1 Tablet (of 20 mg) Oral daily, Enoxaparin Sodium 60 Units (of 300 mg/3mL) Injection b.i.d., Montelukast Sodium 1 Tablet (of 10 mg) Oral daily PRN, Probiotic 1 Capsule Oral daily, Promethazine HCl 1 Tablet (of 25 mg) Oral daily PRN, Zofran 1 Tablet (of 8 mg) Oral PRN Allergies: Bactrim, bananas lemon/[place] Sea food-omega, coffee, fish, garlic, milk , Penicillins, angel, and salmon. Review of Systems: Review of Systems is not available for this patient. Vital Signs: Vitals are not available for this patient. Performance Status: 3 - Capable of only limited self-care, confined to bed or chair more than 50% of waking hours. (ECOG) Physical Examination: ENMT - Poor oral hygiene, no mouth sores, no thrush, Respiratory - Poor air entry otherwise clear, Cardiovascular - Regular rate and rhythm of heart, Abdomen - Soft, bowel sounds present, Extremities - 2+ edema bilaterally. Lab/Imaging: Most recent lab results are not available for this patient. Impression: Metastatic colorectal cancer per colonoscopy done on March 08, 2020 confirmed adenocarcinoma and molecular profiling showed MMR proficient tumor, negative for KRAS and NRAS mutation but positive for BRAF V[address] scan of chest abdomen pelvis done on March 06, 2020 showed numerous low to intermediate density hepatic masses, mass within the right lobe measured 5.6 cm in transverse dimension. Nonspecific decreased attenuation noted in the periphery of spleen. And asymmetric thickening of the wall of the rectosigmoid colon. A lymph node near the segment of colon appears abnormally enlarged measuring 8.4 mm There is a fusion of T12 and L1 level. Left leg DVT confirmed by venous Doppler study done on March 06, 2020, initially treated with Eliquis, then patient was admitted [facility] on April 02, 2020, for which she was transferred to [facility] in [facility] with mental status confusion due to multiple area of embolic and ischemic stroke seen in the right occipital region and bilateral cerebellar region per MRI scan done and on April 02, 2020 she underwent embolectomy of basilar artery. And was started on Lovenox 60 mg subcu twice daily and concluded Eliquis failure. Anxiety/depression Started on systemic chemotherapy with FOLFOX by Dr. Evelio Ren in [place] and completed a second cycle on April 12, 2020. She has now completed a total of 9 cycles of the FOLFOX and she is tolerating it well. She did require dose reduction with cycle 5 due to worsening peripheral neuropathy, increased diarrhea and mouth sores. Since that reduction, she has tolerated treatment well. She had follow-up PET/CT on June 28, 2020 which reported her rectal mass at 4.8 x 2.8 cm with an SUV of 13.6. There were presacral and perirectal nodes and subcentimeter size and too small to characterize. Multifocal metastatic disease was present but most lesions did not demonstrate activity greater than that of hepatic background but several lesions were FDG positive. An index lesion in the posterior segment 6 measures 3.7 x 4.0 cm with an aphthous SUV of 4.7 and significant central necrosis. It is noted that the breast parenchyma and axillary lymph node uptake bilaterally was unremarkable. She reports she has never had a mammogram. There was reactive bone marrow uptake presumed from recent Neulasta therapy. She continues with modified FOLFOX. Follow-up CT PET scan done on November 19, 2020 showed disease progression in the rectosigmoid junction mass which has increased in size as well as SUV now 18 compared to 13.6 in May 2020 and worsening of diffuse hepatic metastatic disease, and subcentimeter pulmonary nodules in the upper lobes also has slightly increased and FDG positive, her chemotherapy was changed to FOLFIRI from FOLFOX Plan: Discussed with patient regarding her labs white blood count 15.9 hemoglobin 8.6 hematocrit 27 platelets 352,000 CMP within normal limit except sodium 125 ALT 31 AST 65 alk phos 592 and her CEA has gone up to 1499 compared to 1131 on May 20, 2021 Clinically, patient is not in acute distress but her overall performance status continued decline, treatment options including palliative chemotherapy versus supportive care versus hospice care were discussed again, considering her overall performance status, patient may not tolerate palliative chemotherapy unless her performance status/nutrition improves, patient and family agreed for hospice care and requesting referral to [address] [place] [id number] [facility] We will refer her to hospice, will see her on as-needed basis. Signed By: Lucian Carson M.D. <<Signature on File>>
== END 2021-06-29 23:59 | disposition home or self-care (01) ==
LOC: ONCMED 06:20
PROVIDERS: PCP Nurse Practitioner Family; Visit Provider Internal Medicine Hematology & Oncology
DX: Z51.11 Encounter for antineoplastic chemotherapy (principal); C19 Malignant neoplasm of rectosigmoid junction; C78.7 Secondary malignant neoplasm of liver and intrahepatic bile duct; Z86.73 Personal history of transient ischemic attack (TIA), and cerebral infarction without residual deficits; Z86.718 Personal history of other venous thrombosis and embolism; Z79.01 Long term (current) use of anticoagulants; F41.9 Anxiety disorder, unspecified; F32.9 Major depressive disorder, single episode, unspecified; Z79.52 Long term (current) use of systemic steroids; Z79.899 Other long term (current) drug therapy
CPT/HCPCS: 36591; 80053; 82378; 85025; 96361; 96365; 96375; 99215; J1100; J1170; J2469; J7040